=== PATIENT | female | born 1955 | race Caucasian/White ===

== ENCOUNTER → 2016-11-17 | Outpatient (REF) | payer OTHER ==
[~2016-11-17] MED LIST: /MOXI40TA; /WARF25TA OR; /WARF2TA; /WARF4TA; ACET500C; ACET65TA OR; ALTA5CAP PO; ASPI81TA83; ASPI81TA83 OR; BISA10SU2 RE; CHLORTHALIDONE PO; EX-L5TAB OR; GLUC1000 PO; GLUC500T PO; LIPI10TA OR; LIPI20TA; MILKSUS OR; MIRALAX; PERC5TAB8 OR; PERC7.5T8 OR; VICODINES TAB; VITA100027; VITAMIN B12 IM; VITAMIN D50000 UNT PO; ZEBE5TAB PO
[2016-11-17 11:52] LABS: ALBUMIN 4.2 GM/DL (3.2-5.2); ALBUMIN/GLOBULIN RATIO 1.17 (1.00-1.93); ALKALINE PHOSPHATASE 126 U/L (45-117); ALT/SGPT 46 U/L (12-78); ANION GAP 12 MEQ/L (8-16); AST/SGOT 48 U/L (15-37); BILIRUBIN,TOTAL 0.6 MG/DL (0.2-1.0); BLOOD UREA NITROGEN 14 MG/DL (7-18); CALCIUM LEVEL 9.6 MG/DL (8.8-10.2); CARBON DIOXIDE LEVEL 21 MEQ/L (21-32); CHLORIDE LEVEL 108 MEQ/L (98-107); CREATININE FOR GFR 0.81 MG/DL (0.55-1.02); GLOMERULAR FILTRATION RATE > 60.0 (>45); GLUCOSE, FASTING 173 MG/DL (80-110); POTASSIUM SERUM 4.1 MEQ/L (3.5-5.1); SODIUM LEVEL 141 MEQ/L (136-145); TOTAL PROTEIN 7.8 GM/DL (6.4-8.2)
== END ==
LOC: M SFHCPLAZ 08:34
PROVIDERS: ATTEND Nurse Practitioner Family
DX: E11.65 Type 2 diabetes mellitus with hyperglycemia (principal); E55.9 Vitamin D deficiency, unspecified

== ENCOUNTER → 2017-02-14 | Outpatient (REF) | payer OTHER ==
[2017-02-14 11:02] LABS: ALBUMIN 3.9 GM/DL (3.2-5.2); ALBUMIN/GLOBULIN RATIO 1.05 (1.00-1.93); ALKALINE PHOSPHATASE 178 U/L (45-117); ALT/SGPT 44 U/L (12-78); ANION GAP 10 MEQ/L (8-16); AST/SGOT 32 U/L (15-37); BILIRUBIN,TOTAL 0.3 MG/DL (0.2-1.0); BLOOD UREA NITROGEN 16 MG/DL (7-18); CALCIUM LEVEL 9.7 MG/DL (8.8-10.2); CARBON DIOXIDE LEVEL 24 MEQ/L (21-32); CHLORIDE LEVEL 103 MEQ/L (98-107); GLOMERULAR FILTRATION RATE > 60.0 (>45); GLUCOSE, FASTING 272 MG/DL (80-110); POTASSIUM SERUM 4.4 MEQ/L (3.5-5.1); SODIUM LEVEL 137 MEQ/L (136-145); TOTAL PROTEIN 7.6 GM/DL (6.4-8.2)
== END ==
LOC: M SFHCPLAZ 08:48
PROVIDERS: ATTEND Nurse Practitioner Family
DX: E11.65 Type 2 diabetes mellitus with hyperglycemia (principal)

== ENCOUNTER → 2017-05-18 | Outpatient (REF) | payer OTHER ==
[2017-05-18 13:17] LABS: ANION GAP 14 MEQ/L (8-16); BLOOD UREA NITROGEN 15 MG/DL (7-18); CALCIUM LEVEL 9.6 MG/DL (8.8-10.2); CARBON DIOXIDE LEVEL 21 MEQ/L (21-32); CHLORIDE LEVEL 97 MEQ/L (98-107); CHOLESTEROL LEVEL 250 MG/DL (<200); CREATININE FOR GFR 0.99 MG/DL (0.55-1.02); GLOMERULAR FILTRATION RATE > 60.0 (>45); GLUCOSE, FASTING 243 MG/DL (80-110); POTASSIUM SERUM 4.1 MEQ/L (3.5-5.1); SODIUM LEVEL 132 MEQ/L (136-145); TRIGLYCERIDES LEVEL 365 MG/DL (<150)
== END ==
LOC: M LABDRAWP 12:30
PROVIDERS: ATTEND Nurse Practitioner Family
DX: I11.9 Hypertensive heart disease without heart failure (principal); E78.2 Mixed hyperlipidemia

== ENCOUNTER → 2017-05-18 | Outpatient (REF) | payer OTHER ==
[2017-05-18 13:15] LABS: BILIRUBIN,TOTAL 0.5 MG/DL (0.2-1.0); CALCIUM LEVEL 9.8 MG/DL (8.8-10.2); CREATININE FOR GFR 1.06 MG/DL (0.55-1.02); GLOMERULAR FILTRATION RATE 55.7 (>45); POTASSIUM SERUM 4.2 MEQ/L (3.5-5.1)
[2017-05-18 13:16] LABS: ALBUMIN 4.1 GM/DL (3.2-5.2); ALBUMIN/GLOBULIN RATIO 1.14 (1.00-1.93); TOTAL PROTEIN 7.7 GM/DL (6.4-8.2)
== END ==
LOC: M SFHCPLAZ 08:10
PROVIDERS: ATTEND Nurse Practitioner Family
DX: E11.65 Type 2 diabetes mellitus with hyperglycemia (principal)

== ENCOUNTER → 2017-09-17 | Outpatient (CLI) | payer OTHER | LOC: M RAD 16:16 | PROVIDERS: ATTEND Nurse Practitioner Family | DX: Z12.31 Encounter for screening mammogram for malignant neoplasm of breast (principal) ==

== ENCOUNTER → 2017-10-25 | Outpatient (CLI) | payer OTHER | LOC: M WHC 13:59 | DX: Z12.31 Encounter for screening mammogram for malignant neoplasm of breast (principal) | CPT/HCPCS: 77067 ==

== ENCOUNTER → 2017-10-29 | Outpatient (REF) | payer OTHER ==
[2017-10-29 14:18] LABS: ALBUMIN 4.4 GM/DL (3.2-5.2); ALKALINE PHOSPHATASE 176 U/L (45-117); ALT/SGPT 45 U/L (12-78); ANION GAP 9 MEQ/L (8-16); AST/SGOT 40 U/L (7-37); BILIRUBIN,TOTAL 0.6 MG/DL (0.2-1.0); BLOOD UREA NITROGEN 11 MG/DL (7-18); CALCIUM LEVEL 9.8 MG/DL (8.8-10.2); CARBON DIOXIDE LEVEL 26 MEQ/L (21-32); CHLORIDE LEVEL 104 MEQ/L (98-107); CHOLESTEROL LEVEL 158 MG/DL (<200); CHOLESTEROL RISK RATIO 3.761 (<5); CREATININE FOR GFR 0.97 MG/DL (0.55-1.02); GLOMERULAR FILTRATION RATE > 60.0 (>45); GLUCOSE, FASTING 185 MG/DL (80-110); HDL CHOLESTEROL 42 MG/DL (>40); LDL CHOLESTEROL 65.8 MG/DL (<100); NON-HDL-C 116 MG/DL; SODIUM LEVEL 139 MEQ/L (136-145); TOTAL PROTEIN 8.4 GM/DL (6.4-8.2); TRIGLYCERIDES LEVEL 251 MG/DL (<150)
== END ==
LOC: M SFHCPLAZ 09:33
DX: E11.65 Type 2 diabetes mellitus with hyperglycemia (principal); E78.5 Hyperlipidemia, unspecified

== ENCOUNTER 2017-12-21 08:31 | Day surgery (SDC) | payer OTHER ==
[2017-12-21] MEDS ORDERED: PROPOFOL 200 MG/20 ML VIAL As Ordered ×2 (09:46)
[2017-12-21] MEDS ORDERED: LIDOCAINE 2% INJ 100 MG/5 ML SDV (FOR ANES.) As Ordered (09:47)
== END 2017-12-21 11:24 | disposition home or self-care (01) ==
LOC: M OPP 11:24
DX: Z12.11 Encounter for screening for malignant neoplasm of colon (principal); R19.4 Change in bowel habit; K63.89 Other specified diseases of intestine; K64.8 Other hemorrhoids; K57.30 Diverticulosis of large intestine without perforation or abscess without bleeding; R00.8 Other abnormalities of heart beat; I10 Essential (primary) hypertension; E78.5 Hyperlipidemia, unspecified; E11.9 Type 2 diabetes mellitus without complications; R12 Heartburn; K21.9 Gastro-esophageal reflux disease without esophagitis; D64.9 Anemia, unspecified; M19.90 Unspecified osteoarthritis, unspecified site; Z78.0 Asymptomatic menopausal state; Z86.711 Personal history of pulmonary embolism; Z96.643 Presence of artificial hip joint, bilateral; Z96.651 Presence of right artificial knee joint; Z79.899 Other long term (current) drug therapy; Z79.84 Long term (current) use of oral hypoglycemic drugs
CPT/HCPCS: 45380

== ENCOUNTER → 2017-12-27 | Outpatient (REF) | payer OTHER ==
[2017-12-27 12:05] LABS: VITAMIN B12 LEVEL > 2000 PG/ML (247-911)
[2017-12-27 12:08] LABS: ALBUMIN 4.3 GM/DL (3.2-5.2); ALBUMIN/GLOBULIN RATIO 1.19 (1.00-1.93); ALKALINE PHOSPHATASE 151 U/L (45-117); ALT/SGPT 40 U/L (12-78); ANION GAP 10 MEQ/L (8-16); AST/SGOT 34 U/L (7-37); BILIRUBIN,TOTAL 0.5 MG/DL (0.2-1.0); BLOOD UREA NITROGEN 13 MG/DL (7-18); CALCIUM LEVEL 9.3 MG/DL (8.8-10.2); CARBON DIOXIDE LEVEL 24 MEQ/L (21-32); CHLORIDE LEVEL 108 MEQ/L (98-107); CREATININE FOR GFR 0.84 MG/DL (0.55-1.30); GLOMERULAR FILTRATION RATE > 60.0 (>45); GLUCOSE, FASTING 109 MG/DL (70-100); POTASSIUM SERUM 4.1 MEQ/L (3.5-5.1); SODIUM LEVEL 142 MEQ/L (136-145); TOTAL PROTEIN 7.9 GM/DL (6.4-8.2)
[2017-12-27 12:38] LABS: ESTIMATED AVERAGE GLUCOSE 180 MG/DL (60-110); HEMOGLOBIN A1c 7.9 %
[2017-12-27 16:35] LABS: CREATININE, URINE 60.6 MG/DL; MAU/CREAT RATIO 19.8 MCG/MG (0.0-30.0)
== END ==
LOC: M SFHCPLAZ 08:44
DX: E11.65 Type 2 diabetes mellitus with hyperglycemia (principal); D51.8 Other vitamin B12 deficiency anemias
CPT/HCPCS: 82607

== ENCOUNTER 2018-03-09 22:09 | Inpatient (IN) | payer OTHER ==
[2018-03-09 23:35] LABS: BASO # 0.1 10^3/uL (0.0-0.2); BASO % 0.8 % (0.0-1.0); EOS # 0.3 10^3/uL (0.0-0.50); EOS % 3.2 % (0.0-3.0); HEMATOCRIT 38.8 % (36.0-47.0); HEMOGLOBIN 13.1 g/dl (12.0-15.5); IMMATURE GRANULOCYTE % 0.3 % (0-3.0); LYMPH # 3.8 10^3/uL (1.5-4.5); LYMPH % 41.7 % (24.0-44.0); MEAN CORPUSCULAR HEMOGLOBIN 28.8 pg (27.0-33.0); MEAN CORPUSCULAR HGB CONC 33.8 g/dl (32.0-36.5); MEAN CORPUSCULAR VOLUME 85.3 fl (80.0-96.0); MONO # 0.6 10^3/uL (0.0-0.8); MONO % 6.3 % (0.0-5.0); NEUTROPHILS # 4.4 10^3/uL (1.8-7.7); NEUTROPHILS % 47.7 % (36.0-66.0); PLATELET COUNT, AUTOMATED 158 10^3/uL (150-450); RED BLOOD COUNT 4.55 10^6/uL (4.00-5.40); RED CELL DISTRIBUTION WIDTH 14.1 % (11.5-14.5); WHITE BLOOD COUNT 9.1 10^3/uL (4.0-10.0)
[2018-03-09 23:45] LABS: INR 0.97
[2018-03-09 23:46] LABS: PARTIAL THROMBOPLASTIN TIME 30.9 SECONDS (26.8-37.9)
[2018-03-09 23:48] LABS: D-DIMER QUANT 1431.4 ng/ml (<500)
[2018-03-09 23:54] LABS: ALBUMIN/GLOBULIN RATIO 0.98 (1.00-1.93); ALKALINE PHOSPHATASE 141 U/L (45-117); ALT/SGPT 31 U/L (12-78); ANION GAP 14 MEQ/L (8-16); AST/SGOT 28 U/L (7-37); BILIRUBIN,DIRECT 0.2 MG/DL (0.0-0.2); BILIRUBIN,TOTAL 0.5 MG/DL (0.2-1.0); BLOOD UREA NITROGEN 15 MG/DL (7-18); CALCIUM LEVEL 9.2 MG/DL (8.8-10.2); CARBON DIOXIDE LEVEL 19 MEQ/L (21-32); CHLORIDE LEVEL 102 MEQ/L (98-107); CPK CREATINE PHOSPHOKINASE 92 U/L (26-192); CREATININE FOR GFR 0.92 MG/DL (0.55-1.30); FREE T4 0.88 NG/DL (0.76-1.46); GLOMERULAR FILTRATION RATE > 60.0 (>45); GLUCOSE, FASTING 72 MG/DL (70-100); LIPASE 481 U/L (73-393); POTASSIUM SERUM 3.4 MEQ/L (3.5-5.1); SODIUM LEVEL 135 MEQ/L (136-145); TOTAL PROTEIN 8.1 GM/DL (6.4-8.2); TROPONIN I < 0.02 NG/ML (< 0.10)
[2018-03-10] LABS: CK-MB VALUE MASS 1.9 NG/ML (<3.6); MB/CK RELATIVE INDEX 2.06 (< OR =4)
[2018-03-10 00:15] LABS: ETHYL ALCOHOL (ETHANOL) 0.255 % (0.000-0.010)
[2018-03-10] MEDS ORDERED: ISOVUE-370 76% 100ML VIAL (Q9967) As Ordered (00:17)
[2018-03-10] MEDS: ASPIRIN 81 MG CHEW TABLET PO (00:24)
[2018-03-10] MEDS: NS 1,000 ML IV (00:26)
[2018-03-10 03:19] LABS: MAGNESIUM LEVEL 1.8 MG/DL (1.8-2.4); NT-PRO BNP 70 PG/ML (<125)
[2018-03-10] MEDS: POTASSIUM CHLORIDE 10 MEQ SR TABLET PO (03:45)
[2018-03-10] MEDS ORDERED: OXAZEPAM 10 MG CAP PO (05:30)
[2018-03-10] MEDS ORDERED: ACETAMINOPHEN TAB 650MG DOSE (2X325MG) PO (05:30)
[2018-03-10] MEDS ORDERED: GLUCOSE 4 GM CHEW TABLET PO (05:30)
[2018-03-10] MEDS ORDERED: DEXTROSE 50% 50 ML SYRINGE IV (05:30)
[2018-03-10] MEDS ORDERED: GLUCAGON FOR INJ 1 MG VIAL (J1610) SC (05:30)
[2018-03-10] MEDS ORDERED: ONDANSETRON 4MG/2ML VIAL (J2405) IV (05:30)
[2018-03-10 05:55] LABS: CK-MB VALUE MASS 1.9 NG/ML (<3.6); CPK CREATINE PHOSPHOKINASE 92 U/L (26-192); MB/CK RELATIVE INDEX 2.06 (< OR =4); TROPONIN I < 0.02 NG/ML (< 0.10)
[2018-03-10] MEDS ORDERED: PILL CRUSHER/CUTTER 1 EACH XX (06:15)
[2018-03-10 06:18] LABS: BEDSIDE GLUCOSE 68 MG/DL (80-115)
[2018-03-10] MEDS: FOLIC ACID 1 MG TAB PO (06:22)
[2018-03-10] MEDS: FAMOTIDINE 20 MG TAB PO ×2 (06:22→20:12)
[2018-03-10] MEDS: MULTIVITAMINS/MINERALS THERAP 1 TAB PO (06:22)
[2018-03-10] MEDS: THIAMINE 100 MG TAB PO (06:22)
[2018-03-10] MEDS: OXAZEPAM 10 MG CAP PO ×2 (06:22→14:20)
[2018-03-10 07:26] LABS: BASO # 0.1 10^3/uL (0.0-0.2); BASO % 1.2 % (0.0-1.0); EOS # 0.2 10^3/uL (0.0-0.50); EOS % 3.7 % (0.0-3.0); HEMATOCRIT 38.6 % (36.0-47.0); HEMOGLOBIN 13.1 g/dl (12.0-15.5); IMMATURE GRANULOCYTE % 0.4 % (0-3.0); LYMPH # 2.1 10^3/uL (1.5-4.5); LYMPH % 42.5 % (24.0-44.0); MEAN CORPUSCULAR HGB CONC 33.9 g/dl (32.0-36.5); MEAN CORPUSCULAR VOLUME 85.4 fl (80.0-96.0); MONO # 0.3 10^3/uL (0.0-0.8); MONO % 6.1 % (0.0-5.0); NEUTROPHILS # 2.3 10^3/uL (1.8-7.7); NEUTROPHILS % 46.1 % (36.0-66.0); PLATELET COUNT, AUTOMATED 126 10^3/uL (150-450); RED BLOOD COUNT 4.52 10^6/uL (4.00-5.40); RED CELL DISTRIBUTION WIDTH 14.3 % (11.5-14.5); WHITE BLOOD COUNT 4.9 10^3/uL (4.0-10.0)
[2018-03-10] MEDS: HumaLOG INSULIN (NovoLOG) PER UNIT SC ×4 (07:30→20:12)
[2018-03-10 07:46] LABS: ANION GAP 10 MEQ/L (8-16); BLOOD UREA NITROGEN 11 MG/DL (7-18); CALCIUM LEVEL 9.1 MG/DL (8.8-10.2); CARBON DIOXIDE LEVEL 22 MEQ/L (21-32); CHLORIDE LEVEL 110 MEQ/L (98-107); CREATININE FOR GFR 0.89 MG/DL (0.55-1.30); GLOMERULAR FILTRATION RATE > 60.0 (>45); GLUCOSE, FASTING 99 MG/DL (70-100); MAGNESIUM LEVEL 1.9 MG/DL (1.8-2.4); POTASSIUM SERUM 4.2 MEQ/L (3.5-5.1); SODIUM LEVEL 142 MEQ/L (136-145)
[2018-03-10] MEDS: DOCUSATE SODIUM 100 MG CAP PO ×2 (09:00→20:10)
[2018-03-10] MEDS: ENOXAPARIN 40 MG/0.4 ML SYRINGE (J1650) SC (10:03)
[2018-03-10] MEDS: ASPIRIN 81 MG ENTERIC TAB PO (10:04)
[2018-03-10] MEDS: BISOPROLOL FUMARATE 5 MG TAB PO (10:04)
[2018-03-10 11:59] LABS: BEDSIDE GLUCOSE 114 MG/DL (80-115)
[2018-03-10 16:46] LABS: BEDSIDE GLUCOSE 113 MG/DL (80-115)
[2018-03-10 20:02] LABS: BEDSIDE GLUCOSE 201 MG/DL (80-115)
[2018-03-11 06:24] LABS: BASO % 0.9 % (0.0-1.0); EOS # 0.2 10^3/uL (0.0-0.50); EOS % 5.1 % (0.0-3.0); HEMATOCRIT 40.6 % (36.0-47.0); HEMOGLOBIN 13.7 g/dl (12.0-15.5); IMMATURE GRANULOCYTE % 0.2 % (0-3.0); LYMPH # 1.5 10^3/uL (1.5-4.5); LYMPH % 33.8 % (24.0-44.0); MEAN CORPUSCULAR HEMOGLOBIN 28.9 pg (27.0-33.0); MEAN CORPUSCULAR HGB CONC 33.7 g/dl (32.0-36.5); MEAN CORPUSCULAR VOLUME 85.7 fl (80.0-96.0); MONO # 0.5 10^3/uL (0.0-0.8); MONO % 9.9 % (0.0-5.0); NEUTROPHILS # 2.3 10^3/uL (1.8-7.7); NEUTROPHILS % 50.1 % (36.0-66.0); PLATELET COUNT, AUTOMATED 131 10^3/uL (150-450); RED BLOOD COUNT 4.74 10^6/uL (4.00-5.40); RED CELL DISTRIBUTION WIDTH 14.2 % (11.5-14.5); WHITE BLOOD COUNT 4.6 10^3/uL (4.0-10.0)
[2018-03-11 06:52] LABS: ANION GAP 7 MEQ/L (8-16); BLOOD UREA NITROGEN 14 MG/DL (7-18); CARBON DIOXIDE LEVEL 25 MEQ/L (21-32); CHLORIDE LEVEL 108 MEQ/L (98-107); GLOMERULAR FILTRATION RATE 59.4 (>45); GLUCOSE, FASTING 163 MG/DL (70-100); POTASSIUM SERUM 3.9 MEQ/L (3.5-5.1); SODIUM LEVEL 140 MEQ/L (136-145)
[2018-03-11] MEDS: MULTIVITAMINS/MINERALS THERAP 1 TAB PO (08:30)
[2018-03-11] MEDS: THIAMINE 100 MG TAB PO (08:30)
[2018-03-11] MEDS: ASPIRIN 81 MG ENTERIC TAB PO (08:30)
[2018-03-11] MEDS: FAMOTIDINE 20 MG TAB PO (08:32)
[2018-03-11] MEDS: BISOPROLOL FUMARATE 5 MG TAB PO (08:32)
[2018-03-11] MEDS: FOLIC ACID 1 MG TAB PO (08:32)
[2018-03-11] MEDS: HumaLOG INSULIN (NovoLOG) PER UNIT SC ×2 (08:33→12:24)
[2018-03-11] MEDS: ENOXAPARIN 40 MG/0.4 ML SYRINGE (J1650) SC (08:33)
[2018-03-11] MEDS: DOCUSATE SODIUM 100 MG CAP PO (08:33)
[2018-03-11 11:09] LABS: CORTISOL AM 17.7 UG/DL (4.3-22.4)
[2018-03-11 11:36] LABS: BEDSIDE GLUCOSE 211 MG/DL (80-115)
[2018-03-12 15:50] LABS: BEDSIDE GLUCOSE 80 MG/DL (80-115)
== END 2018-03-11 12:30 | disposition home or self-care (01) | DRG 254 ==
LOC: M ED 22:09 → M ED INP 03-10 04:26 → M MSPAV 03-10 05:44
PROVIDERS: Internal Medicine
DX: K31.89 Other diseases of stomach and duodenum (principal); E87.1 Hypo-osmolality and hyponatremia; I10 Essential (primary) hypertension; E53.8 Deficiency of other specified B group vitamins; E55.9 Vitamin D deficiency, unspecified; I65.29 Occlusion and stenosis of unspecified carotid artery; E11.9 Type 2 diabetes mellitus without complications; E87.6 Hypokalemia; F10.129 Alcohol abuse with intoxication, unspecified; Z79.899 Other long term (current) drug therapy; E78.5 Hyperlipidemia, unspecified; Z86.718 Personal history of other venous thrombosis and embolism; Z86.711 Personal history of pulmonary embolism; E03.9 Hypothyroidism, unspecified; K57.30 Diverticulosis of large intestine without perforation or abscess without bleeding; M06.9 Rheumatoid arthritis, unspecified; F41.9 Anxiety disorder, unspecified; Z79.82 Long term (current) use of aspirin; E04.9 Nontoxic goiter, unspecified

== ENCOUNTER → 2018-03-18 | Outpatient (REF) | payer OTHER | LOC: M SFHCPLAZ 16:32 | DX: E11.65 Type 2 diabetes mellitus with hyperglycemia (principal) ==

== ENCOUNTER → 2018-03-27 | Outpatient (REF) | payer OTHER ==
[2018-03-27 19:59] LABS: ANION GAP 13 MEQ/L (8-16); BLOOD UREA NITROGEN 17 MG/DL (7-18); CALCIUM LEVEL 9.7 MG/DL (8.8-10.2); CARBON DIOXIDE LEVEL 23 MEQ/L (21-32); CHLORIDE LEVEL 103 MEQ/L (98-107); CREATININE FOR GFR 1.07 MG/DL (0.55-1.30); GLUCOSE, FASTING 317 MG/DL (70-100); POTASSIUM SERUM 4.4 MEQ/L (3.5-5.1); SODIUM LEVEL 139 MEQ/L (136-145)
== END ==
LOC: M SFHCPLAZ 13:00
DX: E11.65 Type 2 diabetes mellitus with hyperglycemia (principal)

== ENCOUNTER 2018-04-04 11:31 | Emergency (ER) | payer OTHER ==
[2018-04-04] MEDS: IBUPROFEN 600 MG TAB PO (13:38)
== END 2018-04-04 13:43 | disposition home or self-care (01) ==
LOC: M ED 11:31
DX: S90.121A Contusion of right lesser toe(s) without damage to nail, initial encounter (principal); W22.09XA Striking against other stationary object, initial encounter; Y92.009 Unspecified place in unspecified non-institutional (private) residence as the place of occurrence of the external cause; E11.9 Type 2 diabetes mellitus without complications; I10 Essential (primary) hypertension; F41.9 Anxiety disorder, unspecified; Z86.711 Personal history of pulmonary embolism; Z98.890 Other specified postprocedural states; Z79.82 Long term (current) use of aspirin; Z79.84 Long term (current) use of oral hypoglycemic drugs; Z79.899 Other long term (current) drug therapy
CPT/HCPCS: 73630

== ENCOUNTER → 2018-04-05 | Outpatient (REF) | payer OTHER ==
[2018-04-05 16:32] LABS: TOTAL 25(OH) VITAMIN D 67.4 NG/ML (30.0-100.0)
[2018-04-05 16:36] LABS: ESTIMATED AVERAGE GLUCOSE 192 MG/DL (60-110); HEMOGLOBIN A1c 8.3 %
== END ==
LOC: M SFHCPLAZ 14:30
DX: E11.65 Type 2 diabetes mellitus with hyperglycemia (principal); E55.9 Vitamin D deficiency, unspecified
CPT/HCPCS: 83036

== ENCOUNTER 2018-05-16 01:06 | Emergency (ER) | payer OTHER ==
[2018-05-16 03:29] LABS: BASO % 0.6 % (0.0-1.0); EOS # 0.2 10^3/uL (0.0-0.50); EOS % 2.6 % (0.0-3.0); HEMATOCRIT 40.5 % (36.0-47.0); HEMOGLOBIN 13.5 g/dl (12.0-15.5); IMMATURE GRANULOCYTE % 0.5 % (0-3.0); LYMPH # 2.3 10^3/uL (1.5-4.5); LYMPH % 35.2 % (24.0-44.0); MEAN CORPUSCULAR HGB CONC 33.3 g/dl (32.0-36.5); MEAN CORPUSCULAR VOLUME 86.9 fl (80.0-96.0); MONO # 0.5 10^3/uL (0.0-0.8); MONO % 7.8 % (0.0-5.0); NEUTROPHILS # 3.5 10^3/uL (1.8-7.7); NEUTROPHILS % 53.3 % (36.0-66.0); PLATELET COUNT, AUTOMATED 129 10^3/uL (150-450); RED BLOOD COUNT 4.66 10^6/uL (4.00-5.40); RED CELL DISTRIBUTION WIDTH 14.4 % (11.5-14.5); WHITE BLOOD COUNT 6.5 10^3/uL (4.0-10.0)
[2018-05-16] MEDS: ONDANSETRON 4MG/2ML VIAL (J2405) IV (03:30)
[2018-05-16] MEDS: KETOROLAC 30 MG/ML VIAL (J1885) IV (03:30)
[2018-05-16 03:53] LABS: LACTIC ACID SEPSIS PROTOCOL 3.2 MMOL/L (0.4-2.0)
[2018-05-16 04:14] LABS: ALBUMIN 4.2 GM/DL (3.2-5.2); ALBUMIN/GLOBULIN RATIO 1.02 (1.00-1.93); ALKALINE PHOSPHATASE 159 U/L (45-117); ALT/SGPT 34 U/L (12-78); ANION GAP 16 MEQ/L (8-16); AST/SGOT 30 U/L (7-37); BILIRUBIN,DIRECT 0.1 MG/DL (0.0-0.2); BILIRUBIN,TOTAL 0.5 MG/DL (0.2-1.0); BLOOD UREA NITROGEN 13 MG/DL (7-18); CALCIUM LEVEL 9.1 MG/DL (8.8-10.2); CARBON DIOXIDE LEVEL 18 MEQ/L (21-32); CHLORIDE LEVEL 107 MEQ/L (98-107); CPK CREATINE PHOSPHOKINASE 95 U/L (26-192); CREATININE FOR GFR 0.81 MG/DL (0.55-1.30); GLOMERULAR FILTRATION RATE > 60.0 (>45); GLUCOSE, FASTING 90 MG/DL (70-100); LIPASE 419 U/L (73-393); POTASSIUM SERUM 3.8 MEQ/L (3.5-5.1); SODIUM LEVEL 141 MEQ/L (136-145); TOTAL PROTEIN 8.3 GM/DL (6.4-8.2)
[2018-05-16] MEDS: NS 1,000 ML IV (04:14)
[2018-05-16 04:27] LABS: ETHYL ALCOHOL (ETHANOL) 0.092 % (0.000-0.010)
[2018-05-16 04:55] LABS: KETONE, URINE AUTO RFX NEGATIVE (NEGATIVE); LEUKOCYTE ESTERASE UR AUTO RFX NEGATIVE (NEGATIVE); NITRITE, URINE AUTO RFX NEGATIVE (NEGATIVE); RBC, URINE AUTO RFX 0 /HPF (0-3); SQUAM EPITHELIAL CELL UR AURFX 0 /HPF (0-6); WBC, URINE AUTO RFX 0 /HPF (0-3)
== END 2018-05-16 05:45 | disposition home or self-care (01) ==
LOC: M ED 01:06
DX: R10.9 Unspecified abdominal pain (principal); E11.9 Type 2 diabetes mellitus without complications; I10 Essential (primary) hypertension; R16.0 Hepatomegaly, not elsewhere classified; N13.30 Unspecified hydronephrosis; K56.7 Ileus, unspecified; R19.7 Diarrhea, unspecified; K52.9 Noninfective gastroenteritis and colitis, unspecified; Z79.82 Long term (current) use of aspirin; Z79.84 Long term (current) use of oral hypoglycemic drugs; Z79.899 Other long term (current) drug therapy
CPT/HCPCS: J2405

== ENCOUNTER 2018-05-18 22:20 | Emergency (ER) | payer OTHER | END 2018-05-18 23:37 | disposition home or self-care (01) | LOC: M ED 22:20 | DX: F10.129 Alcohol abuse with intoxication, unspecified (principal); E11.9 Type 2 diabetes mellitus without complications; I10 Essential (primary) hypertension; E78.5 Hyperlipidemia, unspecified; Z79.899 Other long term (current) drug therapy; Z79.82 Long term (current) use of aspirin; Z79.84 Long term (current) use of oral hypoglycemic drugs | CPT/HCPCS: 99284 ==

== ENCOUNTER 2018-05-25 23:07 | Emergency (ER) | payer OTHER ==
[2018-05-26] MEDS ORDERED: GASTROGRAFIN SOLUTION 30ML (Q9963) As Ordered (00:22)
[2018-05-26 00:25] LABS: APPEARANCE, URINE CLEAR (CLEAR); BACTERIA, URINE AUTO 1+ (NEGATIVE); BILIRUBIN, URINE AUTO NEGATIVE (NEGATIVE); BLOOD, URINE BLOOD 1+ (NEGATIVE); COLOR, URINE STRAW (YELLOW); GLUCOSE, URINE (UA) AUTO 3+ mg/dL (NEGATIVE); KETONE, URINE AUTO TRACE mg/dL (NEGATIVE); LEUKOCYTE ESTERASE, URINE AUTO TRACE (NEGATIVE); NITRITE, URINE AUTO NEGATIVE (NEGATIVE); PROTEIN, URINE AUTO NEGATIVE (NEGATIVE); RBC, URINE AUTO 3 /HPF (0-3); SPECIFIC GRAVITY URINE AUTO 1.001 (1.002-1.035); SQUAMOUS EPITHELIAL CELL UR AU 1 /HPF (0-6); UROBILINOGEN, URINE AUTO 0.2 mg/dL (0.0-2.0); WBC, URINE AUTO 2 /HPF (0-3)
[2018-05-26 00:34] LABS: BASO # 0.1 10^3/uL (0.0-0.2); BASO % 0.7 % (0.0-1.0); EOS # 0.2 10^3/uL (0.0-0.50); EOS % 2.5 % (0.0-3.0); HEMATOCRIT 41.6 % (36.0-47.0); HEMOGLOBIN 13.7 g/dl (12.0-15.5); IMMATURE GRANULOCYTE % 0.4 % (0-3.0); LYMPH # 2.6 10^3/uL (1.5-4.5); MEAN CORPUSCULAR HEMOGLOBIN 28.8 pg (27.0-33.0); MEAN CORPUSCULAR HGB CONC 32.9 g/dl (32.0-36.5); MEAN CORPUSCULAR VOLUME 87.4 fl (80.0-96.0); MONO # 0.5 10^3/uL (0.0-0.8); MONO % 6.4 % (0.0-5.0); PLATELET COUNT, AUTOMATED 137 10^3/uL (150-450); RED BLOOD COUNT 4.76 10^6/uL (4.00-5.40); RED CELL DISTRIBUTION WIDTH 14.4 % (11.5-14.5); WHITE BLOOD COUNT 7.3 10^3/uL (4.0-10.0)
[2018-05-26] MEDS: NS 500 ML IV ×2 (00:36→02:11)
[2018-05-26] MEDS: MORPHINE 10 MG/ML 1ML VIAL (J2270) IV (00:36)
[2018-05-26] MEDS: GASTROGRAFIN SOLUTION 30ML PO ×2 (00:40→01:20)
[2018-05-26 00:44] LABS: ALBUMIN 4.1 GM/DL (3.2-5.2); ALBUMIN/GLOBULIN RATIO 1.05 (1.00-1.93); ALKALINE PHOSPHATASE 170 U/L (45-117); ALT/SGPT 39 U/L (12-78); ANION GAP 18 MEQ/L (8-16); AST/SGOT 38 U/L (7-37); BILIRUBIN,DIRECT 0.1 MG/DL (0.0-0.2); BILIRUBIN,TOTAL 0.4 MG/DL (0.2-1.0); BLOOD UREA NITROGEN 14 MG/DL (7-18); CARBON DIOXIDE LEVEL 16 MEQ/L (21-32); CHLORIDE LEVEL 104 MEQ/L (98-107); CK-MB VALUE MASS 2.5 NG/ML (<3.6); CPK CREATINE PHOSPHOKINASE 105 U/L (26-192); CREATININE FOR GFR 0.89 MG/DL (0.55-1.30); GLOMERULAR FILTRATION RATE > 60.0 (>45); GLUCOSE, FASTING 110 MG/DL (70-100); LIPASE 267 U/L (73-393); MB/CK RELATIVE INDEX 2.38 (< OR =4); POTASSIUM SERUM 3.7 MEQ/L (3.5-5.1); SODIUM LEVEL 138 MEQ/L (136-145); TROPONIN I < 0.02 NG/ML (< 0.10)
[2018-05-26] MEDS ORDERED: ISOVUE-370 76% 100ML VIAL (Q9967) As Ordered (01:56)
== END 2018-05-26 04:55 | disposition home or self-care (01) ==
LOC: M ED 23:07
DX: R10.9 Unspecified abdominal pain (principal); E78.5 Hyperlipidemia, unspecified; E11.9 Type 2 diabetes mellitus without complications; J98.11 Atelectasis; K76.0 Fatty (change of) liver, not elsewhere classified
CPT/HCPCS: Q9967

== ENCOUNTER 2018-06-08 22:49 | Emergency (ER) | payer OTHER ==
[2018-06-08 23:07] LABS: BEDSIDE GLUCOSE 64 MG/DL (80-115)
[2018-06-08 23:51] LABS: BEDSIDE GLUCOSE 94 MG/DL (80-115)
== END 2018-06-09 00:09 | disposition home or self-care (01) ==
LOC: M ED 06-09 00:09
DX: E11.649 Type 2 diabetes mellitus with hypoglycemia without coma (principal); I10 Essential (primary) hypertension; K21.9 Gastro-esophageal reflux disease without esophagitis; Z79.899 Other long term (current) drug therapy; Z79.1 Long term (current) use of non-steroidal anti-inflammatories (NSAID); Z79.84 Long term (current) use of oral hypoglycemic drugs; Z79.82 Long term (current) use of aspirin
CPT/HCPCS: 99284

== ENCOUNTER 2018-06-11 01:39 | Emergency (ER) | payer OTHER ==
[2018-06-11] MEDS: MULTIVITAMIN -ADULT INJECTION 10 ML, THIAMINE INJection 100 MG, FOLIC ACID 1 MG in NS 1... IV (02:34)
[2018-06-11 02:35] LABS: BASO % 0.4 % (0.0-1.0); EOS # 0.2 10^3/uL (0.0-0.50); EOS % 2.7 % (0.0-3.0); HEMATOCRIT 42.1 % (36.0-47.0); IMMATURE GRANULOCYTE % 0.2 % (0-3.0); LYMPH # 1.8 10^3/uL (1.5-4.5); LYMPH % 20.6 % (24.0-44.0); MEAN CORPUSCULAR HEMOGLOBIN 28.6 pg (27.0-33.0); MEAN CORPUSCULAR HGB CONC 33.3 g/dl (32.0-36.5); MEAN CORPUSCULAR VOLUME 86.1 fl (80.0-96.0); MONO # 0.5 10^3/uL (0.0-0.8); MONO % 5.6 % (0.0-5.0); NEUTROPHILS # 6.3 10^3/uL (1.8-7.7); NEUTROPHILS % 70.5 % (36.0-66.0); PLATELET COUNT, AUTOMATED 111 10^3/uL (150-450); RED BLOOD COUNT 4.89 10^6/uL (4.00-5.40); RED CELL DISTRIBUTION WIDTH 14.6 % (11.5-14.5); WHITE BLOOD COUNT 8.9 10^3/uL (4.0-10.0)
[2018-06-11 02:50] LABS: ANION GAP 13 MEQ/L (8-16); BLOOD UREA NITROGEN 16 MG/DL (7-18); CALCIUM LEVEL 9.5 MG/DL (8.8-10.2); CARBON DIOXIDE LEVEL 21 MEQ/L (21-32); CHLORIDE LEVEL 107 MEQ/L (98-107); CPK CREATINE PHOSPHOKINASE 116 U/L (26-192); CREATININE FOR GFR 0.89 MG/DL (0.55-1.30); GLOMERULAR FILTRATION RATE > 60.0 (>45); GLUCOSE, FASTING 85 MG/DL (70-100); POTASSIUM SERUM 3.6 MEQ/L (3.5-5.1); SODIUM LEVEL 141 MEQ/L (136-145); TROPONIN I 0.04 NG/ML (< 0.10)
[2018-06-11 02:51] LABS: CK-MB VALUE MASS 1.5 NG/ML (<3.6); MB/CK RELATIVE INDEX 1.29 (< OR =4)
[2018-06-11 02:59] LABS: ETHYL ALCOHOL (ETHANOL) < 0.003 % (0.000-0.010)
== END 2018-06-11 04:02 | disposition home or self-care (01) ==
LOC: M ED 01:39
DX: E86.0 Dehydration (principal); E11.9 Type 2 diabetes mellitus without complications; I10 Essential (primary) hypertension; Z79.899 Other long term (current) drug therapy; Z79.82 Long term (current) use of aspirin; Z79.84 Long term (current) use of oral hypoglycemic drugs; F10.10 Alcohol abuse, uncomplicated
CPT/HCPCS: J3411

== ENCOUNTER → 2018-06-24 | Outpatient (REF) | payer OTHER ==
[2018-06-24 22:14] LABS: ANION GAP 12 MEQ/L (8-16); BLOOD UREA NITROGEN 11 MG/DL (7-18); CALCIUM LEVEL 9.8 MG/DL (8.8-10.2); CARBON DIOXIDE LEVEL 23 MEQ/L (21-32); CHLORIDE LEVEL 108 MEQ/L (98-107); CREATININE FOR GFR 0.87 MG/DL (0.55-1.30); GLOMERULAR FILTRATION RATE > 60.0 (>45); GLUCOSE, FASTING 134 MG/DL (70-100); POTASSIUM SERUM 4.1 MEQ/L (3.5-5.1); SODIUM LEVEL 143 MEQ/L (136-145)
== END ==
LOC: M SFHCPLAZ 12:57
DX: E11.65 Type 2 diabetes mellitus with hyperglycemia (principal)

== ENCOUNTER → 2018-07-22 | Outpatient (REF) | payer OTHER ==
[2018-07-22 18:10] LABS: ESTIMATED AVERAGE GLUCOSE 154 MG/DL (60-110)
[2018-07-22 18:22] LABS: ALBUMIN 4.2 GM/DL (3.2-5.2); ALBUMIN/GLOBULIN RATIO 1.02 (1.00-1.93); ALKALINE PHOSPHATASE 176 U/L (45-117); ALT/SGPT 38 U/L (12-78); ANION GAP 11 MEQ/L (8-16); AST/SGOT 32 U/L (7-37); BILIRUBIN,TOTAL 0.4 MG/DL (0.2-1.0); BLOOD UREA NITROGEN 15 MG/DL (7-18); CALCIUM LEVEL 9.4 MG/DL (8.8-10.2); CARBON DIOXIDE LEVEL 23 MEQ/L (21-32); CHLORIDE LEVEL 107 MEQ/L (98-107); CREATININE FOR GFR 0.96 MG/DL (0.55-1.30); GLOMERULAR FILTRATION RATE > 60.0 (>45); GLUCOSE, FASTING 144 MG/DL (70-100); SODIUM LEVEL 141 MEQ/L (136-145); TOTAL PROTEIN 8.3 GM/DL (6.4-8.2)
[2018-07-22 18:29] LABS: TOTAL 25(OH) VITAMIN D 80.6 NG/ML (30.0-100.0)
== END ==
LOC: M SFHCPLAZ 15:07
DX: E11.65 Type 2 diabetes mellitus with hyperglycemia (principal)

== ENCOUNTER → 2018-07-30 | Outpatient (CLI) | payer OTHER | LOC: M RAD 13:25 | DX: I65.23 Occlusion and stenosis of bilateral carotid arteries (principal) | CPT/HCPCS: 93880 ==

== ENCOUNTER → 2018-08-20 | Outpatient (CLI) | payer OTHER | LOC: M WHC 08:52 | DX: M81.0 Age-related osteoporosis without current pathological fracture (principal) | CPT/HCPCS: 77080 ==

== ENCOUNTER 2018-10-07 05:29 | Emergency (ER) | payer OTHER ==
[~2018-10-07] VITALS: Ht 160 cm; Wt 70.9 kg
[~2018-10-07 05:29] MED LIST changes: -ACET65TA OR; +ACET65TA PO; +ALOG25TA PO; +ASPI1TAB PO; +ASPI81TA85 PO; +BISO5TAB5 PO; +CHLO125TA PO; +FOLI1TAB5 PO; +GLIM2TA PO; +IBUP-1022 PO; +JARD1TAB PO; +LISI-538 PO; +NAPR-49 PO; +RANI150T PO; +ROSU20TA4 PO; +THIA100TA PO; +VITAMIN B12; +VITMTA PO; +ZOFR4TAB16 PO
[2018-10-07 06:19] LABS: BASO % 0.3 % (0.0-1.0); EOS # 0.2 10^3/uL (0.0-0.50); EOS % 2.3 % (0.0-3.0); HEMOGLOBIN 14.2 g/dl (12.0-15.5); LYMPH # 0.5 10^3/uL (1.5-4.5); LYMPH % 7.7 % (24.0-44.0); MEAN CORPUSCULAR HEMOGLOBIN 28.6 pg (27.0-33.0); MEAN CORPUSCULAR VOLUME 86.5 fl (80.0-96.0); MONO # 0.3 10^3/uL (0.0-0.8); MONO % 4.8 % (0.0-5.0); NEUTROPHILS # 5.6 10^3/uL (1.8-7.7); NEUTROPHILS % 84.4 % (36.0-66.0); PLATELET COUNT, AUTOMATED 109 10^3/uL (150-450); RED BLOOD COUNT 4.97 10^6/uL (4.00-5.40); WHITE BLOOD COUNT 6.6 10^3/uL (4.0-10.0)
[2018-10-07 06:25] LABS: ALBUMIN 4.1 GM/DL (3.2-5.2); ALT/SGPT 45 U/L (12-78); BILIRUBIN,DIRECT 0.3 MG/DL (0.0-0.2); BILIRUBIN,TOTAL 0.9 MG/DL (0.2-1.0); BLOOD UREA NITROGEN 15 MG/DL (7-18); CALCIUM LEVEL 9.3 MG/DL (8.8-10.2); CARBON DIOXIDE LEVEL 22 MEQ/L (21-32); CHLORIDE LEVEL 105 MEQ/L (98-107); CPK CREATINE PHOSPHOKINASE 77 U/L (26-192); CREATININE FOR GFR 0.93 MG/DL (0.55-1.30); GLOMERULAR FILTRATION RATE > 60.0 (>45); GLUCOSE, FASTING 225 MG/DL (70-100); LIPASE 158 U/L (73-393); MB/CK RELATIVE INDEX 1.69 (< OR =4); SODIUM LEVEL 137 MEQ/L (136-145); TOTAL PROTEIN 8.2 GM/DL (6.4-8.2); TROPONIN I < 0.02 NG/ML (< 0.10)
[2018-10-07] MEDS ORDERED: METOCLOPRAMIDE INJ 10MG/2ML VIAL (J2765) IV ONE (07:15)
[2018-10-07] MEDS ORDERED: NS 1,000 ML IV ONE (07:15)
--- NOTE | 2018-10-07 07:48 | REP ---
Clinical: Acute chest and abdominal pain . Comparison: 03/09/2018 . Technique: PA and lateral. Findings: The mediastinum and cardiac silhouette are normal. The lung sharp are clear and without acute consolidation, effusion, or pneumothorax. The skeletal structures demonstrate degenerative changes primarily involving the bilateral shoulders. Surgical clips in the left thoracic inlet may be related to prior thyroid surgery. Impression: 1. No acute cardiopulmonary process. Electronically Signed by Amado Hernandez MD 10/07/2018 07:40 A
[2018-10-07 08:00] VITALS: BP 163/77
[2018-10-07] MEDS ORDERED: ZOFR4TAB14 PO (08:45)
--- NOTE | 2018-10-08 05:43 | ECGEPIP ---
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
== END 2018-10-07 08:54 | disposition home or self-care (01) ==
LOC: M ED 05:29
DX: R11.2 Nausea with vomiting, unspecified (principal); R19.7 Diarrhea, unspecified; I10 Essential (primary) hypertension; E11.9 Type 2 diabetes mellitus without complications
CPT/HCPCS: 71046; 80048; 80076; 81001; 82550; 82553; 83690; 85025; 87507; 93005; 93041; 96374; 99285; J2765

== ENCOUNTER 2018-10-10 10:45 | Emergency (ER) | payer OTHER ==
[~2018-10-10] VITALS: Ht 160 cm; Wt 70.9 kg
[~2018-10-10 10:45] MED LIST changes: +ZOFR4TAB14 PO
[2018-10-10] MEDS ORDERED: STEG5TAB (10:58)
[2018-10-10] MEDS ORDERED: CHLO125TA (10:58)
[2018-10-10 11:42] LABS: BASO # 0.1 10^3/uL (0.0-0.2); BASO % 0.7 % (0.0-1.0); EOS # 0.3 10^3/uL (0.0-0.50); EOS % 4.7 % (0.0-3.0); HEMATOCRIT 49.2 % (36.0-47.0); HEMOGLOBIN 15.8 g/dl (12.0-15.5); LYMPH # 1.5 10^3/uL (1.5-4.5); LYMPH % 20.1 % (24.0-44.0); MEAN CORPUSCULAR HEMOGLOBIN 28.4 pg (27.0-33.0); MEAN CORPUSCULAR HGB CONC 32.1 g/dl (32.0-36.5); MEAN CORPUSCULAR VOLUME 88.3 fl (80.0-96.0); MONO # 0.5 10^3/uL (0.0-0.8); MONO % 6.6 % (0.0-5.0); NEUTROPHILS # 4.9 10^3/uL (1.8-7.7); NEUTROPHILS % 67.3 % (36.0-66.0); PLATELET COUNT, AUTOMATED 149 10^3/uL (150-450); RED BLOOD COUNT 5.57 10^6/uL (4.00-5.40); WHITE BLOOD COUNT 7.3 10^3/uL (4.0-10.0)
[2018-10-10] MEDS ORDERED: DICYCLOMINE 10 MG CAP PO ONE (12:00)
[2018-10-10] MEDS ORDERED: NS 500 ML IV ONE (12:00)
[2018-10-10 12:22] LABS: ALBUMIN 4.5 GM/DL (3.2-5.2); ALT/SGPT 149 U/L (12-78); BILIRUBIN,DIRECT 0.2 MG/DL (0.0-0.2); BILIRUBIN,TOTAL 0.7 MG/DL (0.2-1.0); BLOOD UREA NITROGEN 22 MG/DL (7-18); CALCIUM LEVEL 9.4 MG/DL (8.8-10.2); CARBON DIOXIDE LEVEL 16 MEQ/L (21-32); CHLORIDE LEVEL 108 MEQ/L (98-107); CREATININE FOR GFR 1.07 MG/DL (0.55-1.30); GLOMERULAR FILTRATION RATE 54.8 (>45); GLUCOSE, FASTING 174 MG/DL (70-100); LIPASE 232 U/L (73-393); SODIUM LEVEL 136 MEQ/L (136-145); TOTAL PROTEIN 8.7 GM/DL (6.4-8.2)
[2018-10-10] MEDS ORDERED: DICY20TA PO (12:59)
[2018-10-10 13:07] VITALS: BP 152/68
[2018-10-11 10:18] LABS: HEPATITIS B SURFACE ANTIGEN NEGATIVE (NEGATIVE)
[2018-10-11 10:45] LABS: HEPATITIS B CORE ANTIBODY IGM NEGATIVE (NEGATIVE); HEPATITIS C VIRUS ABY INDEX 0.1 INDEX (<0.8)
[2018-10-11 10:48] LABS: HEPATITIS A ANTIBODY IGM NEGATIVE (NEGATIVE)
== END 2018-10-10 13:17 | disposition home or self-care (01) ==
LOC: M ED 10:45
DX: A08.11 Acute gastroenteropathy due to Norwalk agent (principal); R79.89 Other specified abnormal findings of blood chemistry; I10 Essential (primary) hypertension; E78.5 Hyperlipidemia, unspecified; F41.9 Anxiety disorder, unspecified; Z79.899 Other long term (current) drug therapy; Z79.84 Long term (current) use of oral hypoglycemic drugs; Z79.82 Long term (current) use of aspirin

== ENCOUNTER 2018-10-19 22:46 | Emergency (ER) | payer OTHER ==
[~2018-10-19] VITALS: Ht 160 cm; Wt 70.9 kg
[~2018-10-19 22:46] MED LIST changes: +CHLO125TA; +DICY20TA PO; +FOLI1TAB11 PO; -FOLI1TAB5 PO; -NAPR-49 PO; +NAPR-50 PO; +STEG5TAB
[2018-10-19 22:55] VITALS: BP 139/72
== END 2018-10-20 04:47 | disposition left against medical advice (07) ==
LOC: M ED 22:46 → EDBD 22:46 → EDSEX 22:46 → M ED 10-20 04:47
DX: F10.10 Alcohol abuse, uncomplicated (principal); R19.7 Diarrhea, unspecified; Z53.21 Procedure and treatment not carried out due to patient leaving prior to being seen by health care provider

== ENCOUNTER → 2018-11-05 | Outpatient (REF) | payer OTHER ==
[2018-11-05 18:43] LABS: HEMOGLOBIN A1c 6.7 %
[2018-11-05 18:48] LABS: ALT/SGPT 33 U/L (12-78); BLOOD UREA NITROGEN 18 MG/DL (7-18); CALCIUM LEVEL 9.7 MG/DL (8.8-10.2); CARBON DIOXIDE LEVEL 23 MEQ/L (21-32); CHLORIDE LEVEL 107 MEQ/L (98-107); CREATININE FOR GFR 0.88 MG/DL (0.55-1.30); GLOMERULAR FILTRATION RATE > 60.0 (>45); GLUCOSE, FASTING 89 MG/DL (70-100); POTASSIUM SERUM 4.4 MEQ/L (3.5-5.1); SODIUM LEVEL 141 MEQ/L (136-145)
[2018-11-05 18:49] LABS: ALBUMIN 4.3 GM/DL (3.2-5.2); BILIRUBIN,TOTAL 0.6 MG/DL (0.2-1.0); CHOLESTEROL LEVEL 149 MG/DL (<200); CHOLESTEROL RISK RATIO 3.547 (<5); HDL CHOLESTEROL 42 MG/DL (>40); LDL CHOLESTEROL 60 MG/DL (<100); NON-HDL-C 107 MG/DL; TOTAL PROTEIN 8.5 GM/DL (6.4-8.2); TRIGLYCERIDES LEVEL 236 MG/DL (<150)
[2018-11-05 18:56] LABS: TOTAL 25(OH) VITAMIN D 92.2 NG/ML (30.0-100.0)
[2018-11-08 08:36] LABS: VITAMIN B12 LEVEL > 2000 PG/ML (232-1245)
== END ==
LOC: M SFHCPLAZ 15:10
PROVIDERS: ATTEND Nurse Practitioner Family
DX: E11.65 Type 2 diabetes mellitus with hyperglycemia (principal); E78.5 Hyperlipidemia, unspecified; D51.8 Other vitamin B12 deficiency anemias; E55.9 Vitamin D deficiency, unspecified

== ENCOUNTER → 2018-12-03 | Outpatient (CLI) | payer OTHER ==
[~2018-12-03] MED LIST changes: +ASPI81TAEC PO; +CALCTAB6 PO; +CYAN1000VL IM; +GLIM2TAB PO; +METF10004 PO; +NAPR-885 PO; +STEG5TAB PO; +TYLE500T78 PO; +VITA50005 PO
--- NOTE | 2018-12-03 12:22 | REPMRS ---
Patient History The patient states she has not had a clinical breast exam in over a year. Patient is postmenopausal. No known family history of cancer. No Hormone Replacement Therapy Digital Woman Screen Mammo: December 03, 2018 - Exam #: [id number] Bilateral CC and MLO view(s) were taken. Technologist: Mary Martinez, Technologist Prior study comparison: October 25, 2017, digital woman screen mammo performed at [facility]. August 29, 2016, digital woman screen mammo performed at [facility] to [facility]. FINDINGS: There are scattered fibroglandular densities. There has been no change in the appearance of the mammogram from the prior studies. There is a mild amount of residual fibroglandular tissue which is fairly symmetric. There is no interval development of dominant mass, architectural distortion, or clustered microcalcification suggestive of malignancy. There are bilateral benign arterial calcifications noted. There are scattered, small, benign calcifications of doubtful clinical significance. 3-D tomosynthesis shows no additional findings. The patient's Tyrer-Cuzick lifetime risk assessment score is 5.4 %. No significant changes when compared with prior studies. Assessment: BI-RADS/ACR category 2 mammogram. Benign Findings. Recommendation Routine screening mammogram in 1 year (for women over age 40). This mammogram was interpreted with the aid of an FDA-approved computer-aided dectection system. A. Negative x-ray reports should not delay biopsy if a dominant or clinically suspicious mass is present. B. Four to eight percent of cancers are not identified by mammography. C. Adenosis and dense breast may obscure an underlying neoplasm. Electronically Signed By: Dc Crowder MD 12/03/18 [id number]
== END ==
LOC: M WHC 09:44
PROVIDERS: ATTEND Nurse Practitioner Family
DX: Z12.31 Encounter for screening mammogram for malignant neoplasm of breast (principal)

== ENCOUNTER 2018-12-10 22:16 | Observation (INO) | payer OTHER ==
[~2018-12-10] VITALS: Ht 160 cm; Wt 69.4 kg
[~2018-12-10 22:16] MED LIST changes: -ASPI81TAEC PO; -CALCTAB6 PO; -CYAN1000VL IM; -GLIM2TAB PO; -METF10004 PO; -NAPR-885 PO; -STEG5TAB PO; -TYLE500T78 PO; -VITA50005 PO
[2018-12-10] MEDS ORDERED: ONDANSETRON 4 MG ORAL DISINTEGRATING TAB (Q0162 PER 1MG) PO ONE (23:30)
[2018-12-11] MEDS ORDERED: KETOROLAC 30 MG/ML VIAL (J1885) IV ONE (00:15)
[2018-12-11] MEDS ORDERED: ONDANSETRON 4MG/2ML VIAL (J2405) IV ONE (00:15)
[2018-12-11] MEDS ORDERED: NS 1,000 ML IV ONE (00:15)
[2018-12-11 00:40] LABS: BASO # 0.1 10^3/uL (0.0-0.2); BASO % 0.9 % (0.0-1.0); EOS # 0.2 10^3/uL (0.0-0.50); HEMATOCRIT 44.8 % (36.0-47.0); HEMOGLOBIN 14.6 g/dl (12.0-15.5); LYMPH # 1.9 10^3/uL (1.5-4.5); LYMPH % 35.9 % (24.0-44.0); MEAN CORPUSCULAR HEMOGLOBIN 27.9 pg (27.0-33.0); MEAN CORPUSCULAR HGB CONC 32.6 g/dl (32.0-36.5); MEAN CORPUSCULAR VOLUME 85.7 fl (80.0-96.0); MONO # 0.4 10^3/uL (0.0-0.8); MONO % 6.9 % (0.0-5.0); NEUTROPHILS # 2.9 10^3/uL (1.8-7.7); NEUTROPHILS % 53.1 % (36.0-66.0); PLATELET COUNT, AUTOMATED 126 10^3/uL (150-450); RED BLOOD COUNT 5.23 10^6/uL (4.00-5.40); WHITE BLOOD COUNT 5.4 10^3/uL (4.0-10.0)
--- NOTE | 2018-12-11 00:53 | REPVR ---
EXAM: CT Head Without Contrast EXAM DATE/TIME: 12/11/2018 12:06 AM CLINICAL HISTORY: 63 years old, female; Injury or trauma; Fall; Additional info: New onset headache TECHNIQUE: Axial computed tomography images of the head/brain without contrast. All CT scans at this facility use at least one of these dose optimization techniques: automated exposure control; mA and/or kV adjustment per patient size (includes targeted exams where dose is matched to clinical indication); or iterative reconstruction. COMPARISON: CT Head without contrast 01/09/2013 8:42 AM FINDINGS: Brain: Normal. No hemorrhage. No significant white matter disease. No edema. Ventricles: Normal. No ventriculomegaly. Bones/joints: Unremarkable. No acute fracture. Sinuses: Moderate mucosal thickening of ethmoidal air cells, right greater than left. Mild mucosal thickening of bilateral sphenoid sinuses. Mastoid air cells: Visualized mastoid air cells are unremarkable. No mastoid effusion. Soft tissues: Unremarkable. IMPRESSION: No intracranial abnormality. Sinus disease. Electronically signed by: America Glaser On 12/11/2018 00:53:25 AM
[2018-12-11 00:55] LABS: PARTIAL THROMBOPLASTIN TIME 30.2 SECONDS (25.4-37.6)
[2018-12-11 01:09] LABS: AMPHETAMINES LEVEL URINE NEGATIVE (NEGATIVE); BARBITURATES URINE NEGATIVE (NEGATIVE); BENZODIAZEPINES URINE NEGATIVE (NEGATIVE); CANNABINOIDS URINE NEGATIVE (NEGATIVE); COCAINE METABOLITE URINE NEGATIVE (NEGATIVE); METHADONE URINE NEGATIVE (NEGATIVE); OPIATES URINE NEGATIVE (NEGATIVE); PHENCYCLIDINE URINE NEGATIVE (NEGATIVE)
[2018-12-11 01:23] LABS: INR 1.02; PROTHROMBIN TIME 13.5 SECONDS (12.1-14.4)
[2018-12-11 01:31] LABS: ALBUMIN 4.5 GM/DL (3.2-5.2); ALT/SGPT 36 U/L (12-78); BILIRUBIN,DIRECT 0.1 MG/DL (0.0-0.2); BILIRUBIN,TOTAL 0.5 MG/DL (0.2-1.0); BLOOD UREA NITROGEN 7 MG/DL (7-18); CALCIUM LEVEL 9.3 MG/DL (8.8-10.2); CARBON DIOXIDE LEVEL 17 MEQ/L (21-32); CHLORIDE LEVEL 107 MEQ/L (98-107); CPK CREATINE PHOSPHOKINASE 137 U/L (26-192); CREATININE FOR GFR 0.89 MG/DL (0.55-1.30); ETHYL ALCOHOL (ETHANOL) 0.139 % (0.000-0.010); GLOMERULAR FILTRATION RATE > 60.0 (>45); GLUCOSE, FASTING 69 MG/DL (70-100); LIPASE 194 U/L (73-393); MB/CK RELATIVE INDEX 1.61 (< OR =4); POTASSIUM SERUM 4.4 MEQ/L (3.5-5.1); SODIUM LEVEL 139 MEQ/L (136-145); TOTAL PROTEIN 9.1 GM/DL (6.4-8.2); TROPONIN I 0.03 NG/ML (< 0.10)
[2018-12-11] MEDS ORDERED: DILUENT IV ONE (01:45)
[2018-12-11] MEDS ORDERED: NS IV ONE (01:45)
[2018-12-11 01:55] LABS: ABG BASE EXCESS -9.3 (-2.0-2.0); ABG HCO3 16.3 MEQ/L (22.0-26.0); ABG O2 SATURATION 94.6 % (95.0-99.0); ABG PARTIAL PRESSURE CO2 34.6 mmHg (35.0-45.0); ABG PARTIAL PRESSURE O2 82.1 mmHg (75.0-100.0); ABG TOTAL CO2 17.4 MEQ/L (23.0-31.0); ABG pH (ARTERIAL) 7.292 UNITS (7.350-7.450)
[2018-12-11] MEDS ORDERED: GLIM2TAB PO (03:01)
[2018-12-11] MEDS ORDERED: METF10004 PO ×2 (03:01)
[2018-12-11] MEDS ORDERED: RANI150T PO (03:01)
[2018-12-11] MEDS ORDERED: NAPR-885 PO (03:01)
[2018-12-11] MEDS ORDERED: STEG5TAB PO (03:01)
[2018-12-11] MEDS ORDERED: CYAN1000VL IM (03:01)
[2018-12-11] MEDS ORDERED: TYLE500T78 PO (03:01)
[2018-12-11] MEDS ORDERED: VITA50005 PO (03:01)
[2018-12-11] MEDS ORDERED: ASPI81TAEC PO (03:01)
[2018-12-11] MEDS ORDERED: CALCTAB6 PO (03:01)
[2018-12-11] MEDS ORDERED: FAMOTIDINE 20 MG TAB PO PRN (05:30)
[2018-12-11] MEDS ORDERED: ACETAMINOPHEN TAB 650MG DOSE (2X325MG) PO PRN (05:30)
[2018-12-11] MEDS: ROSUVASTATIN 10 MG TAB (CRESTOR) PO SCH ×2 (05:42→21:03)
[2018-12-11 06:42] LABS: BASO % 0.8 % (0.0-1.0); EOS # 0.1 10^3/uL (0.0-0.50); EOS % 3.5 % (0.0-3.0); HEMATOCRIT 38.6 % (36.0-47.0); LYMPH # 1.4 10^3/uL (1.5-4.5); LYMPH % 36.4 % (24.0-44.0); MEAN CORPUSCULAR HEMOGLOBIN 27.9 pg (27.0-33.0); MEAN CORPUSCULAR HGB CONC 32.6 g/dl (32.0-36.5); MEAN CORPUSCULAR VOLUME 85.4 fl (80.0-96.0); MONO # 0.3 10^3/uL (0.0-0.8); MONO % 7.5 % (0.0-5.0); NEUTROPHILS # 1.9 10^3/uL (1.8-7.7); NEUTROPHILS % 51.5 % (36.0-66.0); PLATELET COUNT, AUTOMATED 114 10^3/uL (150-450); RED BLOOD COUNT 4.52 10^6/uL (4.00-5.40); WHITE BLOOD COUNT 3.7 10^3/uL (4.0-10.0)
[2018-12-11 06:46] LABS: HEMOGLOBIN 12.6 g/dl (12.0-15.5)
[2018-12-11 07:09] LABS: ALBUMIN 3.9 GM/DL (3.2-5.2); ALT/SGPT 29 U/L (12-78); BILIRUBIN,TOTAL 0.4 MG/DL (0.2-1.0); BLOOD UREA NITROGEN 8 MG/DL (7-18); CALCIUM LEVEL 8.5 MG/DL (8.8-10.2); CARBON DIOXIDE LEVEL 20 MEQ/L (21-32); CHLORIDE LEVEL 113 MEQ/L (98-107); CREATININE FOR GFR 0.84 MG/DL (0.55-1.30); GLOMERULAR FILTRATION RATE > 60.0 (>45); GLUCOSE, FASTING 112 MG/DL (70-100); MAGNESIUM LEVEL 1.6 MG/DL (1.8-2.4); POTASSIUM SERUM 4.3 MEQ/L (3.5-5.1); SODIUM LEVEL 143 MEQ/L (136-145); TOTAL PROTEIN 7.3 GM/DL (6.4-8.2)
[2018-12-11] MEDS ORDERED: D5W/0.9% SODIUM CHLORIDE 1,000 ML IV SCH (07:45)
[2018-12-11 08:00] VITALS: BP 174/84
[2018-12-11] MEDS: ASPIRIN 81 MG ENTERIC TAB PO SCH (08:04)
[2018-12-11] MEDS: PANTOPRAZOLE 40MG TAB (PROTONIX) PO SCH (08:04)
[2018-12-11] MEDS: BISOPROLOL FUMARATE 5 MG TAB PO SCH (08:05)
[2018-12-11] MEDS: LISINOPRIL 20 MG TAB PO SCH (08:05)
[2018-12-11] MEDS: ENOXAPARIN 40 MG/0.4 ML SYRINGE (J1650) SC SCH (08:06)
[2018-12-11] MEDS ORDERED: PILL CRUSHER/CUTTER 1 EACH XX PRN (08:30)
[2018-12-11] MEDS: CALCIUM/VITAMIN D 500 MG TAB PO SCH ×2 (09:40→21:03)
[2018-12-11 11:45] VITALS: BP 202/92
[2018-12-11] MEDS ORDERED: GLUCAGON FOR INJ 1 MG VIAL (J1610) SC PRN (12:45)
[2018-12-11] MEDS ORDERED: OXAZEPAM 10 MG CAP PO PRN (12:45)
[2018-12-11] MEDS ORDERED: DEXTROSE 50% 50 ML SYRINGE IV PRN (12:45)
[2018-12-11] MEDS ORDERED: GLUCOSE 4 GM CHEW TABLET PO PRN (12:45)
[2018-12-11] MEDS: amLODIPine 5 MG TAB PO SCH (12:59)
--- NOTE | 2018-12-11 13:56 | IPN ---
DATE: 12/11/2018 Rupa is seen on [address]. She was admitted with lactic acidosis. She is a diabetic with a history of alcoholism. She typically drinks six alcoholic drinks per day. She presented with sequelae of a hypoglycemic event with altered mental status. She had the obligatory lactic acid drawn, which was elevated so she got admitted for her elevated lactate level. Her blood pressure upon arriving to [address] [place] [address] was greater than 200/90, but she was having no neurologic symptoms, headache, visual disturbance, shortness of breath or chest pain. PHYSICAL EXAMINATION: Blood pressure 200/90, pulse of 70, respiratory rate 18, afebrile. General appearance: She is alert and conversant. She had a visitor in the room. She recognized me immediately though I have not seen her in many years. Pupils equal and reactive to light. No strabismus. Lungs clear. Heart regular rhythm. Abdomen soft, nontender, no masses. No peripheral edema. Mild tremor of the hands. No clonus. Moves arms and legs with equal strength. LABS: Blood alcohol on admission was 0.14. White count 3.7, hemoglobin 12.6, platelets 114. Sodium 143, potassium 4.3, BUN 8, creatinine 0.8, glucose 112. Lactic acid is down to 0.9, so we have cured that problem. Blood sugar was 70, in the emergency room it was up to 143. IMPRESSION: 1. Hypoglycemia, probably from inconsistent use of her diabetic medications. Currently on alogliptin, STEGLATRO, glimepiride 2 mg twice a day, metformin 1500 mg in the morning and 1000 mg in the evening. Her last hemoglobin A1c was 6.7% on 11/05/2018. At this point, her oral agents have been held. She is eating well. She has every 6 hour blood sugar with coverage ordered. I have stopped her dextrose with saline. 2. Lactic acidosis, probably from alcohol abuse as well as her metformin. She was intoxicated upon arrival to the emergency room with a blood alcohol of 0.14. We discussed the importance of abstaining from alcohol. Serax has been ordered for alcohol withdrawal symptoms. 3. Hypertension. Her blood pressure is elevated. Some of this is due to alcohol withdrawal. I also not sure how consistently she takes her blood pressure medications. I have added amlodipine 5 mg, first dose now, to her bisoprolol and lisinopril. She also received some ketorolac for unknown reasons last night, which could also elevated her pressure by blunting the effects of her LUCY inhibitor. I expect that she will be ready for discharge in the morning.
[2018-12-11 14:00] VITALS: BP 142/69
[2018-12-11] MEDS: HumaLOG INSULIN (NovoLOG) PER UNIT SC SCH (17:24)
[2018-12-11 17:58] VITALS: BP 134/66
--- NOTE | 2018-12-11 20:54 | ECGEPIP ---
Stationary ECG Study [facility] - ED Test Date: 2018-12-11 Pat Name: MINO NEWTON Department: Room: [place] [address] Gender: F Health Commissioner: AUSTIN : 1955 Requested By: DEEPTHI Davidson Order Number: [id number] Reading MD: Lori Flannery Measurements Intervals [place] Rate: 90 P: 33 ID: 199 QRS: -27 QRSD: 102 T: 34 QT: 387 QTc: 474 Interpretive Statements SINUS RHYTHM BORDERLINE LEFT AXIS DEVIATION VOLTAGE CRITERIA FOR LVH SIMILAR 10/07/18 Electronically Signed On 12-11-2018 20:54:13 EST by Lori Flannery
[2018-12-11] MEDS ORDERED: HumaLOG INSULIN (NovoLOG) PER UNIT SC SCH (21:00)
[2018-12-11 22:00] VITALS: BP 149/68
[2018-12-12 02:00] VITALS: BP 143/74
[2018-12-12 06:00] VITALS: BP 160/80
[2018-12-12 06:52] LABS: HEMATOCRIT 40.6 % (36.0-47.0); MEAN CORPUSCULAR HEMOGLOBIN 27.2 pg (27.0-33.0); MEAN CORPUSCULAR VOLUME 84.9 fl (80.0-96.0); PLATELET COUNT, AUTOMATED 115 10^3/uL (150-450); RED BLOOD COUNT 4.78 10^6/uL (4.00-5.40); WHITE BLOOD COUNT 4.7 10^3/uL (4.0-10.0)
[2018-12-12 07:20] LABS: BLOOD UREA NITROGEN 10 MG/DL (7-18); CALCIUM LEVEL 9.4 MG/DL (8.8-10.2); CARBON DIOXIDE LEVEL 23 MEQ/L (21-32); CHLORIDE LEVEL 107 MEQ/L (98-107); CREATININE FOR GFR 0.84 MG/DL (0.55-1.30); GLOMERULAR FILTRATION RATE > 60.0 (>45); GLUCOSE, FASTING 140 MG/DL (70-100); POTASSIUM SERUM 3.9 MEQ/L (3.5-5.1); SODIUM LEVEL 139 MEQ/L (136-145)
[2018-12-12] MEDS: HumaLOG INSULIN (NovoLOG) PER UNIT SC SCH ×2 (08:15→12:06)
[2018-12-12] MEDS: LISINOPRIL 20 MG TAB PO SCH (08:15)
[2018-12-12] MEDS: ENOXAPARIN 40 MG/0.4 ML SYRINGE (J1650) SC SCH (08:15)
[2018-12-12] MEDS: PANTOPRAZOLE 40MG TAB (PROTONIX) PO SCH (08:15)
[2018-12-12] MEDS: ASPIRIN 81 MG ENTERIC TAB PO SCH (08:15)
[2018-12-12] MEDS: CALCIUM/VITAMIN D 500 MG TAB PO SCH (08:15)
[2018-12-12 08:16] VITALS: BP 158/72
[2018-12-12] MEDS: amLODIPine 5 MG TAB PO SCH (08:16)
[2018-12-12] MEDS: BISOPROLOL FUMARATE 5 MG TAB PO SCH (08:16)
[2018-12-12 10:00] VITALS: BP 156/71
--- NOTE | 2018-12-12 17:40 | DS.PDOC ---
Discharge Summary General Date of Admission Dec 10, 2018 at 22:17 Date of Discharge Dec 12, 2018 Primary Care Physician: LUÍS BARRON Attending Physician: Rene Hinson MD Discharge Summary PROCEDURES PERFORMED DURING STAY: None. ADMITTING DIAGNOSES: 1. Lactic acidosis due to diabetes mellitus DISCHARGE DIAGNOSES: 1. Hypoglycemia 2. Lactic acidosis 3. HTN COMPLICATIONS/CHIEF COMPLAINT: Lactic Acidosis Due To Diabetes Mellitus. HISTORY OF PRESENT ILLNESS: Patient is a 63 yo female who presented with altered mental status secondary to hypoglycemia. Patient inconsistently uses her diabetes medications. Labs in the ER showed patient had elevated lactic acid of 5.6 with normal electrolytes and gap. Likely was secondary to vomiting. Her alcohol level on admission was 0.139. Patient was given a couple boluses in the ER of IV fluid and lactic acid improved. HOSPITAL COURSE: Since admission patient's nausea improved with IV medications. She was placed on sliding scale insulin. Her symptoms improved over the next day and patient was tolerating regular diet on day of discharge. Discussed with patient to take diabetes medication. Suspect may have been secondary to hypoglycemia. Holding glimepiride since common cause of hypoglycemia. Discussed to avoid alcohol use as a diabetic. DISCHARGE MEDICATIONS: Please see below. ALLERGIES: Please see below. PHYSICAL EXAMINATION ON DISCHARGE: VITAL SIGNS: Please see below. GENERAL: Alert, cooperative. HEENT:Atraumatic. NECK: Supple. CARDIOVASCULAR EXAMINATION: Normal s1, s2. RESPIRATORY EXAMINATION: Clear to auscultation. ABDOMINAL EXAMINATION: Soft, nondistended. EXTREMITIES: No lower extremity swelling. SKIN: No rashes, lesions. NEUROLOGICAL EXAMINATION: Answers questions appropriately. PSYCHIATRIC EXAMINATION: Normal affect. LABORATORY DATA: Please see below. IMAGING: Head CT No intracranial abnormality.Sinus disease. PROGNOSIS: Stable ACTIVITY: As tolerated. DIET: Consistent carbohydrate DISCHARGE PLAN: Home DISPOSITION: Home, Self-Care. DISCHARGE INSTRUCTIONS: 1. Follow up with PCP. 2. Hold Glimerpiride, common cause of hypoglycemia DISCHARGE CONDITION: Stable. TIME SPENT ON DISCHARGE: Greater than 30 minutes. Vital Signs/I&Os Vital Signs Date Time Temp Pulse Resp B/P (MAP) Pulse Ox O2 Delivery O2 Flow Rate FiO2 12/12/18 10:00 97.6 63 18 156/71 (99) 98 12/11/18 05:48 Room Air I&O- Last 24 Hours up to 6 AM 12/12/18 06:00 Intake Total 1680 ml Output Total 2450 ml Balance -770 ml Laboratory Data Labs 24H Laboratory Tests 2 12/11/18 19:41: Bedside Glucose (Misc Panel) 150H 12/12/18 06:26: Nucleated Red Blood Cells % (auto) 0.0, Anion Gap 9, Glomerular Filtration Rate > 60.0, Blood Urea Nitrogen 10, Creatinine 0.84, Sodium Level 139, Potassium Level 3.9, Chloride Level 107, Carbon Dioxide Level 23, Calcium Level 9.4 12/12/18 11:22: Bedside Glucose (Misc Panel) 212H CBC/BMP Laboratory Tests 12/12/18 06:26 Red Blood Count 4.78, Mean Corpuscular Volume 84.9, Mean Corpuscular Hemoglobin 27.2, Mean Corpuscular Hemoglobin Concent 32.0, Red Cell Distribution Width 14.5, Calcium Level 9.4 FSBS Laboratory Tests Test 12/11/18 19:41 12/12/18 11:22 Range/Units Bedside Glucose (Misc Panel) 150 212 80-115 MG/DL Microbiology Microbiology 12/11/18 Respiratory Virus Panel (PCR) (RUBEN) - Final, Complete Discharge Medications Scheduled Alogliptin Benzoate (Alogliptin) 25 Mg Tab, 25 MG PO DAILY, (Reported) Aspirin (Aspirin EC) 81 Mg Tabec, 81 MG PO DAILY, (Reported) Bisoprolol Fumarate (Bisoprolol Fumarate) 5 Mg Tab, 5 MG PO DAILY, (Reported) Calcium/Vitamin D (Calcium 600-D 600-400 mg-Unit) 1 Tab Tab, 1 TAB PO BID, (Reported) Cyanocobalamin (Cyanocobalamin) 1,000 Mcg/1 Ml Inj, 1,000 MCG IM MTHLY, (Reported) Ergocalciferol (Vitamin D) 50,000 Unit Cap, 50,000 UNIT PO ASDIRECTED, (Reported) TAKES ON THE AND OF EACH MONTH Ertugliflozin l-Pyroglutamic A (Steglatro) 5 Mg Tab, 5 MG PO DAILY, (Reported) Lisinopril (Lisinopril) 20 Mg Tab, 20 MG PO DAILY, (Reported) Metformin Hydrochloride (Metformin HCl) 1,000 Mg Tab, 1,000 MG PO BID, (Reported) PATIENT SAYS SHE HAS TO CRUSH THIS MEDICATION, SHE CANNOT SWALLOW THE WHOLE PILL OR HALF PILL Metformin Hydrochloride (Metformin HCl) 1,000 Mg Tab, 500 MG PO DAILY, (Reported) TAKES AT NOON. PATIENT SAYS SHE HAS TO CRUSH THIS MEDICATION, SHE CANNOT SWALLOW THE WHOLE PILL OR HALF PILL. Rosuvastatin Calcium (Rosuvastatin Calcium) 20 Mg Tab, 20 MG PO QHS, (Reported) Scheduled PRN Acetaminophen (Tylenol Extra Strength) 500 Mg Tab, 1,000 MG PO Q6H PRN for PAIN, (Reported) Naproxen (Naproxen) 500 Mg Tab, 500 MG PO BID PRN for PAIN, (Reported) Ranitidine HCl (Ranitidine HCl) 150 Mg Tab, 1 TAB PO BID PRN for HEARTBURN, (Reported) Allergies Coded Allergies: No Known Allergies (Unverified , 12/11/18) GME ATTESTATION GME ATTESTATION My faculty preceptor for this patient encounter was physically present during the encounter and was fully available. All aspects of the patient interview, examination, medical decision making process, and medical care plan development were reviewed and approved by the faculty preceptor. The faculty preceptor is aware and concurs with the plan as stated in the body of this note and will attest to such by his/her cosignature. PURNIMA FINK DO Dec 12, 2018 17:40
[2018-12-17] MEDS ORDERED: VITAMIN D 50,000 UNITS CAPSULE (ERGOCALCIFEROL 1.25MG) PO SCH (09:00)
== END 2018-12-12 13:55 | disposition home or self-care (01) ==
LOC: M ED 22:16 → M ED INP 22:17 → M MS4PR 12-11 11:47
PROVIDERS: ADMIT Family Medicine; ATTEND Family Medicine
DX: E11.649 Type 2 diabetes mellitus with hypoglycemia without coma (principal); I10 Essential (primary) hypertension; Z79.84 Long term (current) use of oral hypoglycemic drugs; Z79.82 Long term (current) use of aspirin; Z79.899 Other long term (current) drug therapy
CPT/HCPCS: 36415; 36600; 70450; 80048; 80053; 80307; 81001; 82550; 82553; 82803; 83605; 83690; 83735; 85025; 85027; 85610; 85730; 87486; 87581; 87633; 87798; 93005; 96361; 96372; 96374; 96375; 99285; G0480; J1650; J1885; J2405; Q0162

== ENCOUNTER 2018-12-28 22:57 | Emergency (ER) | payer OTHER ==
[~2018-12-28] VITALS: Ht 160 cm; Wt 69.5 kg
[~2018-12-28 22:57] MED LIST changes: +ASPI81TAEC PO; +CALCTAB6 PO; +CYAN1000VL IM; +GLIM2TAB PO; +METF10004 PO; +NAPR-885 PO; +STEG5TAB PO; +TYLE500T78 PO; +VITA50005 PO
[2018-12-28] MEDS ORDERED: NS 1,000 ML IV ONE (23:30)
[2018-12-28] MEDS ORDERED: ONDANSETRON 4MG/2ML VIAL (J2405) IV ONE (23:30)
[2018-12-29 00:27] LABS: BASO # 0.1 10^3/uL (0.0-0.2); BASO % 0.8 % (0.0-1.0); EOS # 0.2 10^3/uL (0.0-0.50); HEMATOCRIT 43.1 % (36.0-47.0); LYMPH # 2.3 10^3/uL (1.5-4.5); LYMPH % 24.9 % (24.0-44.0); MEAN CORPUSCULAR HGB CONC 32.5 g/dl (32.0-36.5); MEAN CORPUSCULAR VOLUME 86.2 fl (80.0-96.0); MONO # 0.7 10^3/uL (0.0-0.8); MONO % 7.9 % (0.0-5.0); NEUTROPHILS # 5.9 10^3/uL (1.8-7.7); PLATELET COUNT, AUTOMATED 155 10^3/uL (150-450); WHITE BLOOD COUNT 9.1 10^3/uL (4.0-10.0)
[2018-12-29] MEDS ORDERED: NS 1,000 ML IV ONE (01:15)
[2018-12-29 01:36] LABS: ALBUMIN 3.9 GM/DL (3.2-5.2); ALT/SGPT 24 U/L (12-78); BILIRUBIN,DIRECT 0.2 MG/DL (0.0-0.2); BILIRUBIN,TOTAL 0.5 MG/DL (0.2-1.0); BLOOD UREA NITROGEN 14 MG/DL (7-18); CALCIUM LEVEL 8.7 MG/DL (8.8-10.2); CARBON DIOXIDE LEVEL 18 MEQ/L (21-32); CHLORIDE LEVEL 105 MEQ/L (98-107); ETHYL ALCOHOL (ETHANOL) 0.224 % (0.000-0.010); GLOMERULAR FILTRATION RATE > 60.0 (>45); GLUCOSE, FASTING 151 MG/DL (70-100); LIPASE 467 U/L (73-393); POTASSIUM SERUM 3.6 MEQ/L (3.5-5.1); SODIUM LEVEL 137 MEQ/L (136-145); TOTAL PROTEIN 7.5 GM/DL (6.4-8.2)
[2018-12-29 03:00] VITALS: BP 125/65
== END 2018-12-29 03:15 | disposition home or self-care (01) ==
LOC: M ED 22:57
DX: F10.120 Alcohol abuse with intoxication, uncomplicated (principal); R11.10 Vomiting, unspecified; E11.9 Type 2 diabetes mellitus without complications; I10 Essential (primary) hypertension; F17.200 Nicotine dependence, unspecified, uncomplicated; Z79.899 Other long term (current) drug therapy; Z79.82 Long term (current) use of aspirin; Z79.84 Long term (current) use of oral hypoglycemic drugs
CPT/HCPCS: 36415; 80048; 80076; 83690; 85025; 93041; 96374; 99285; G0480; J2405

== ENCOUNTER 2019-01-05 22:24 | Emergency (ER) | payer OTHER ==
[~2019-01-05 22:24] MED LIST changes: -/MOXI40TA; -/WARF25TA OR; -/WARF2TA; -/WARF4TA; -ASPI1TAB PO; +ASPI81TA26 PO; +AVEL1TAB2; +COUM1TAB14; +COUM1TAB16; +COUM1TAB18 OR; -GLIM2TA PO; +GLIM2TAB29 PO; -NAPR-50 PO; +NAPR-837 PO
[2019-01-05 22:29] VITALS: BP 146/70
== END 2019-01-05 22:58 | disposition home or self-care (01) ==
LOC: M ED 22:24
DX: F10.129 Alcohol abuse with intoxication, unspecified (principal); R09.89 Other specified symptoms and signs involving the circulatory and respiratory systems; E11.9 Type 2 diabetes mellitus without complications; I10 Essential (primary) hypertension; F10.20 Alcohol dependence, uncomplicated; Z79.82 Long term (current) use of aspirin; Z79.84 Long term (current) use of oral hypoglycemic drugs; Z79.899 Other long term (current) drug therapy

== ENCOUNTER → 2019-01-07 | Outpatient (REF) | payer OTHER ==
[~2019-01-07] MED LIST changes: +/MOXI40TA; +/WARF25TA OR; +/WARF2TA; +/WARF4TA; +ASPI1TAB PO; -ASPI81TA26 PO; -AVEL1TAB2; -COUM1TAB14; -COUM1TAB16; -COUM1TAB18 OR; +GLIM2TA PO; -GLIM2TAB29 PO; +NAPR-50 PO; -NAPR-837 PO
== END ==
LOC: M SFHCWAGY 09:39
PROVIDERS: ATTEND Nurse Practitioner Family
DX: Z12.4 Encounter for screening for malignant neoplasm of cervix (principal); N95.2 Postmenopausal atrophic vaginitis

== ENCOUNTER → 2019-01-13 | Outpatient (CLI) | payer OTHER ==
[~2019-01-13] MED LIST changes: -/MOXI40TA; -/WARF25TA OR; -/WARF2TA; -/WARF4TA; +AVEL1TAB2; +COUM1TAB14; +COUM1TAB16; +COUM1TAB18 OR; -GLIM2TA PO; +GLIM2TAB29 PO
--- NOTE | 2019-01-13 12:49 | REP ---
PELVIC SONOGRAPHY: HISTORY: Endometrial thickening. FINDINGS: Transabdominal and transvaginal scanning are performed. Uterine dimensions are normal at the 9.4 x 2.7 x 5.7 cm. Endometrial echo 0.4 cm thick and centrally placed. There is a small quantity of endometrial fluid. There are mild cystic changes in the endometrium of the lower uterine segment. A Nabothian cyst is seen in the cervix. There are peripheral uterine calcifications. Urinary bladder grullon are smooth and thin. Normal ovaries are seen. Right ovary measures 1.6 x 1.3 x 1.7 cm per. Left ovary dimensions are 1.6 x 0.8 x 1.8 cm. IMPRESSION: Small quantity of endometrial fluid. 4 mm endometrial thickness. Normal ovaries. Electronically Signed by Ankur Ugarte MD 01/13/2019 01:04 P
== END ==
LOC: M WHC 09:20
PROVIDERS: ATTEND Nurse Practitioner Family
DX: R93.89 Abnormal findings on diagnostic imaging of other specified body structures (principal)

== ENCOUNTER → 2019-02-21 | Outpatient (REF) | payer OTHER ==
[~2019-02-21] MED LIST changes: -ASPI1TAB PO; +ASPI81TA26 PO; -NAPR-50 PO; +NAPR-837 PO
[2019-02-21 16:12] LABS: CALCIUM LEVEL 10.5 MG/DL (8.8-10.2); CREATININE FOR GFR 1.06 MG/DL (0.55-1.30); GLOMERULAR FILTRATION RATE 55.4 (>45); POTASSIUM SERUM 4.2 MEQ/L (3.5-5.1)
[2019-02-21 16:13] LABS: ALBUMIN 4.2 GM/DL (3.2-5.2); BILIRUBIN,TOTAL 0.7 MG/DL (0.2-1.0); TOTAL PROTEIN 8.4 GM/DL (6.4-8.2)
[2019-02-21 16:19] LABS: TOTAL 25(OH) VITAMIN D 55.2 NG/ML (30.0-100.0)
[2019-02-21 16:34] LABS: HEMOGLOBIN A1c 7.9 %
[2019-02-21 16:39] LABS: CREATININE, URINE 45.4 MG/DL; MALB URINE SIEMENS 38.2 MG/L; MAU/CREAT RATIO 84.1 MCG/MG (0.0-30.0)
== END ==
LOC: M SFHCPLAZ 14:18
PROVIDERS: ATTEND Nurse Practitioner Family
DX: E11.65 Type 2 diabetes mellitus with hyperglycemia (principal); E55.9 Vitamin D deficiency, unspecified

== ENCOUNTER → 2019-02-27 | Outpatient (REF) | payer OTHER ==
[2019-02-27 12:54] LABS: ALBUMIN 4.1 GM/DL (3.2-5.2); ALT/SGPT 29 U/L (12-78); BILIRUBIN,TOTAL 0.5 MG/DL (0.2-1.0); BLOOD UREA NITROGEN 16 MG/DL (7-18); CALCIUM LEVEL 9.8 MG/DL (8.8-10.2); CARBON DIOXIDE LEVEL 26 MEQ/L (21-32); CHLORIDE LEVEL 104 MEQ/L (98-107); CREATININE FOR GFR 0.97 MG/DL (0.55-1.30); GLOMERULAR FILTRATION RATE > 60.0 (>45); GLUCOSE, FASTING 311 MG/DL (70-100); POTASSIUM SERUM 4.5 MEQ/L (3.5-5.1); SODIUM LEVEL 138 MEQ/L (136-145); TOTAL PROTEIN 7.7 GM/DL (6.4-8.2)
[2019-02-27 13:02] LABS: TOTAL 25(OH) VITAMIN D 64.5 NG/ML (30.0-100.0)
[2019-02-27 13:13] LABS: HEMOGLOBIN A1c 8.1 %
[2019-02-27 13:20] LABS: CREATININE, URINE 38.9 MG/DL; MALB URINE SIEMENS 18.6 MG/L; MAU/CREAT RATIO 47.8 MCG/MG (0.0-30.0)
== END ==
LOC: M SFHCPLAZ 07:52
PROVIDERS: ATTEND Nurse Practitioner Family
DX: E11.65 Type 2 diabetes mellitus with hyperglycemia (principal); E55.9 Vitamin D deficiency, unspecified

== ENCOUNTER 2019-04-06 18:10 | Emergency (ER) | payer OTHER ==
[~2019-04-06] VITALS: Ht 160 cm; Wt 68.6 kg
[2019-04-06] MEDS ORDERED: ROSU20TA4 PO (18:26)
[2019-04-06 19:02] LABS: BASO % 0.7 % (0.0-1.0); EOS # 0.3 10^3/uL (0.0-0.50); EOS % 4.6 % (0.0-3.0); HEMATOCRIT 45.2 % (36.0-47.0); HEMOGLOBIN 14.8 g/dl (12.0-15.5); LYMPH # 1.8 10^3/uL (1.5-4.5); MEAN CORPUSCULAR HEMOGLOBIN 28.8 pg (27.0-33.0); MEAN CORPUSCULAR HGB CONC 32.7 g/dl (32.0-36.5); MEAN CORPUSCULAR VOLUME 88.1 fl (80.0-96.0); MONO # 0.6 10^3/uL (0.0-0.8); MONO % 9.7 % (0.0-5.0); NEUTROPHILS # 3.4 10^3/uL (1.8-7.7); NEUTROPHILS % 55.7 % (36.0-66.0); PLATELET COUNT, AUTOMATED 137 10^3/uL (150-450); RED BLOOD COUNT 5.13 10^6/uL (4.00-5.40); WHITE BLOOD COUNT 6.1 10^3/uL (4.0-10.0)
[2019-04-06] MEDS ORDERED: NS 1,000 ML IV ONE (19:15)
[2019-04-06] MEDS ORDERED: ONDANSETRON 4MG/2ML VIAL (J2405) IV ONE (19:15)
[2019-04-06 19:34] LABS: PROTHROMBIN TIME 12.9 SECONDS (11.8-14.0)
[2019-04-06 19:35] LABS: PARTIAL THROMBOPLASTIN TIME 29.3 SECONDS (25.0-38.4)
[2019-04-06 19:41] LABS: ALBUMIN 4.4 GM/DL (3.2-5.2); ALT/SGPT 34 U/L (12-78); AMYLASE 37 U/L (25-115); BILIRUBIN,DIRECT 0.2 MG/DL (0.0-0.2); BILIRUBIN,TOTAL 0.7 MG/DL (0.2-1.0); BLOOD UREA NITROGEN 12 MG/DL (7-18); CALCIUM LEVEL 10.3 MG/DL (8.8-10.2); CARBON DIOXIDE LEVEL 24 MEQ/L (21-32); CHLORIDE LEVEL 105 MEQ/L (98-107); CK-MB VALUE MASS 1.8 NG/ML (<3.6); CPK CREATINE PHOSPHOKINASE 80 U/L (26-192); CREATININE FOR GFR 0.99 MG/DL (0.55-1.30); GLOMERULAR FILTRATION RATE 59.9 (>45); GLUCOSE, FASTING 113 MG/DL (70-100); LIPASE 171 U/L (73-393); MB/CK RELATIVE INDEX 2.25 (< OR =4); POTASSIUM SERUM 4.7 MEQ/L (3.5-5.1); SODIUM LEVEL 140 MEQ/L (136-145); TOTAL PROTEIN 8.8 GM/DL (6.4-8.2); TROPONIN I < 0.02 NG/ML (< 0.10)
[2019-04-06] MEDS ORDERED: cloNIDine 0.2 MG TAB PO ONE (19:45)
[2019-04-06 19:50] VITALS: BP 172/100
[2019-04-06] MEDS ORDERED: MACR100C43 PO (21:27)
[2019-04-06 21:30] VITALS: BP 136/69
--- NOTE | 2019-04-07 06:58 | ECGEPIP ---
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
--- NOTE | 2019-04-07 07:20 | REP ---
Clinical: Hypertension . Comparison: 10/07/2018 . Technique: PA and lateral. Findings: The mediastinum and cardiac silhouette are normal. The lung sharp are clear and without acute consolidation, effusion, or pneumothorax. Degenerative changes involving the thoracic spine and bilateral shoulders (right greater than left) again noted. Impression: 1. No acute cardiopulmonary process. Electronically Signed by Amado Hernandez MD 04/07/2019 07:12 A
== END 2019-04-06 21:40 | disposition home or self-care (01) ==
LOC: M ED 18:10
DX: I16.0 Hypertensive urgency (principal); N39.0 Urinary tract infection, site not specified; F10.10 Alcohol abuse, uncomplicated; E11.9 Type 2 diabetes mellitus without complications; E78.5 Hyperlipidemia, unspecified; Z79.82 Long term (current) use of aspirin; Z79.84 Long term (current) use of oral hypoglycemic drugs; Z79.899 Other long term (current) drug therapy
CPT/HCPCS: 71046; 80048; 80076; 81001; 82150; 82550; 82553; 83690; 85025; 85610; 85730; 87088; 87186; 93005; 93041; 96361; 96374; 99285; J2405

== ENCOUNTER 2019-04-08 18:13 | Emergency (ER) | payer OTHER ==
[~2019-04-08] VITALS: Ht 160 cm; Wt 68.6 kg
[~2019-04-08 18:13] MED LIST changes: +MACR100C43 PO; -ROSU20TA4 PO; +ROSU20TA5 PO
[2019-04-08] MEDS ORDERED: RANI150T14 (18:21)
[2019-04-08] MEDS ORDERED: LABETALOL HCL 100 MG/20 ML VIAL IV STA (20:07)
[2019-04-08 20:29] LABS: BASO % 0.5 % (0.0-1.0); EOS # 0.1 10^3/uL (0.0-0.50); EOS % 2.4 % (0.0-3.0); HEMATOCRIT 41.4 % (36.0-47.0); HEMOGLOBIN 13.5 g/dl (12.0-15.5); LYMPH # 1.2 10^3/uL (1.5-4.5); LYMPH % 19.8 % (24.0-44.0); MEAN CORPUSCULAR HEMOGLOBIN 28.4 pg (27.0-33.0); MEAN CORPUSCULAR HGB CONC 32.6 g/dl (32.0-36.5); MEAN CORPUSCULAR VOLUME 87.2 fl (80.0-96.0); MONO # 0.5 10^3/uL (0.0-0.8); MONO % 8.7 % (0.0-5.0); NEUTROPHILS % 68.4 % (36.0-66.0); PLATELET COUNT, AUTOMATED 118 10^3/uL (150-450); RED BLOOD COUNT 4.75 10^6/uL (4.00-5.40); WHITE BLOOD COUNT 5.9 10^3/uL (4.0-10.0)
--- NOTE | 2019-04-08 20:35 | REP ---
Clinical: Acute headache and hypertension. Comparison: 12/11/2018 . Findings: Age-related atrophy and microvascular ischemic changes are appreciated. The ventricles and sulci are symmetric. Jerome-white differentiation is maintained. There is no evidence for acute intracranial hemorrhage, mass/mass effect, pathology or infarction. No extra-axial fluid collection. Calvarium is intact. Paranasal sinuses and mastoid air cells are clear. Impression: Age related atrophy and microvascular ischemic changes. No acute intracranial hemorrhage, infarction, or mass/mass effect. Electronically Signed by Amado Hernandez MD 04/08/2019 08:27 P
[2019-04-08 20:38] LABS: BLOOD UREA NITROGEN 11 MG/DL (7-18); CALCIUM LEVEL 9.1 MG/DL (8.8-10.2); CARBON DIOXIDE LEVEL 23 MEQ/L (21-32); CHLORIDE LEVEL 106 MEQ/L (98-107); CK-MB VALUE MASS < 1.0 NG/ML (<3.6); CPK CREATINE PHOSPHOKINASE 84 U/L (26-192); CREATININE FOR GFR 0.95 MG/DL (0.55-1.30); ETHYL ALCOHOL (ETHANOL) < 0.003 % (0.000-0.010); GLOMERULAR FILTRATION RATE > 60.0 (>45); GLUCOSE, FASTING 102 MG/DL (70-100); MB/CK RELATIVE INDEX 1.19 (< OR =4); POTASSIUM SERUM 3.9 MEQ/L (3.5-5.1); SODIUM LEVEL 139 MEQ/L (136-145); TROPONIN I < 0.02 NG/ML (< 0.10)
[2019-04-08 21:34] VITALS: BP 224/108
[2019-04-09] MEDS ORDERED: KETOROLAC 30 MG/ML VIAL (J1885) IV ONE (00:45)
[2019-04-09] MEDS ORDERED: METOCLOPRAMIDE INJ 10MG/2ML VIAL (J2765) IV ONE (00:45)
[2019-04-09] MEDS ORDERED: diphenhydrAMINE INJ 50MG/ML VIAL (J1200) IV ONE (00:45)
[2019-04-09 03:30] VITALS: BP 143/73
--- NOTE | 2019-04-09 06:09 | REP ---
Clinical: Acute chest pain . Comparison: 04/06/2019 or . Findings: The mediastinum and cardiac silhouette are stable and within normal limits for portable technique. The lung sharp are clear without acute consolidation, effusion, or pneumothorax. Skeletal structures are intact. Impression: No acute cardiopulmonary process appreciated. Electronically Signed by Amado Hernandez MD 04/09/2019 06:00 A
--- NOTE | 2019-04-09 21:31 | ECGEPIP ---
[facility] - ED Test Date: 2019-04-08 Pat Name: MINO NEWTON Department: Room: - Gender: Female Reconditioner: andree : 1955 Requested By: DEEPTHI Davidson Order Number: [id number] Reading MD: Lori Flannery Measurements Intervals [place] Rate: 71 P: 21 IA: 184 QRS: QRSD: 100 T: 23 QT: 387 QTc: 423 Interpretive Statements SINUS RHYTHM VOLTAGE CRITERIA FOR LVH SIMILAR 04/06/19 Electronically Signed on 04-09-2019 21:31:20 EDT by Lori Flannery
== END 2019-04-09 03:47 | disposition home or self-care (01) ==
LOC: M ED 18:13
DX: I10 Essential (primary) hypertension (principal); E11.9 Type 2 diabetes mellitus without complications; E78.9 Disorder of lipoprotein metabolism, unspecified; F10.10 Alcohol abuse, uncomplicated; Z79.899 Other long term (current) drug therapy; Z79.84 Long term (current) use of oral hypoglycemic drugs; Z79.82 Long term (current) use of aspirin; F17.210 Nicotine dependence, cigarettes, uncomplicated
CPT/HCPCS: 36415; 70450; 71045; 80048; 82550; 82553; 85025; 93005; 93041; 94760; 96374; 96375; 99285; G0480; J1200; J1885; J2765

== ENCOUNTER 2019-05-17 18:09 | Emergency (ER) | payer OTHER ==
[~2019-05-17] VITALS: Ht 160 cm; Wt 70.7 kg
[~2019-05-17 18:09] MED LIST changes: +RANI150T14
[2019-05-17] MEDS ORDERED: NS 1,000 ML IV ONE (19:00)
[2019-05-17] MEDS ORDERED: GI COCKTAIL 50ML BTL(HYOSCYAMINE/MAALOX/LIDOCAINE VISCOUS)(1:3:1) PO ONE (19:15)
[2019-05-17 19:42] LABS: BASO # 0.1 10^3/uL (0.0-0.2); BASO % 0.7 % (0.0-1.0); EOS # 0.2 10^3/uL (0.0-0.50); EOS % 3.2 % (0.0-3.0); HEMATOCRIT 43.7 % (36.0-47.0); HEMOGLOBIN 14.4 g/dl (12.0-15.5); LYMPH # 1.8 10^3/uL (1.5-4.5); LYMPH % 24.8 % (24.0-44.0); MEAN CORPUSCULAR HEMOGLOBIN 29.9 pg (27.0-33.0); MEAN CORPUSCULAR VOLUME 90.7 fl (80.0-96.0); MONO # 0.5 10^3/uL (0.0-0.8); MONO % 7.5 % (0.0-5.0); NEUTROPHILS # 4.6 10^3/uL (1.8-7.7); NEUTROPHILS % 63.5 % (36.0-66.0); PLATELET COUNT, AUTOMATED 157 10^3/uL (150-450); RED BLOOD COUNT 4.82 10^6/uL (4.00-5.40); WHITE BLOOD COUNT 7.2 10^3/uL (4.0-10.0)
[2019-05-17 20:49] LABS: ALBUMIN 3.7 GM/DL (3.2-5.2); BILIRUBIN,DIRECT 0.1 MG/DL (0.0-0.2); BILIRUBIN,TOTAL 0.5 MG/DL (0.2-1.0); CREATININE FOR GFR 0.99 MG/DL (0.55-1.30); GLOMERULAR FILTRATION RATE 59.9 (>45); POTASSIUM SERUM 4.5 MEQ/L (3.5-5.1); TOTAL PROTEIN 7.7 GM/DL (6.4-8.2)
--- NOTE | 2019-05-17 23:00 | REPVR ---
EXAM: CT Abdomen and Pelvis Without Contrast EXAM DATE/TIME: 05/17/2019 9:29 PM CLINICAL HISTORY: 63 years old, female; Abdominal pain; Localized; Lower; Additional info: Flank pain, RO kidney stone TECHNIQUE: Imaging protocol: Axial computed tomography images of the abdomen and pelvis without contrast. Coronal and sagittal reformatted images were created and reviewed. Radiation optimization: All CT scans at this facility use at least one of these dose optimization techniques: automated exposure control; mA and/or kV adjustment per patient size (includes targeted exams where dose is matched to clinical indication); or iterative reconstruction. COMPARISON: CT ABD PELVIS W/O CONTRAST 05/16/2018 2:47 AM FINDINGS: Lungs: Minimal bilateral dependent atelectasis. Liver: Slightly nodular surface of the liver and relative prominence of the caudate lobe. Gallbladder and bile ducts: The gallbladder is contracted with no stones. Pancreas: Normal. No ductal dilation. Spleen: Borderline splenomegaly measuring 13.0 cm. Adrenals: Normal. No mass. Kidneys and ureters: Normal. No hydronephrosis. Stomach and bowel: Normal. No obstruction. No mucosal thickening. Appendix: There are no changes of appendicitis. A normal appendix is not seen. Intraperitoneal space: Normal. No free air. No significant fluid collection. Vasculature: There is mild calcification of the abdominal aorta with extension into the iliac arteries. Lymph nodes: Normal. No enlarged lymph nodes. Bladder: Unremarkable as visualized. Reproductive: Unremarkable as visualized. Bones/joints: Bilateral hip prostheses with beam hardening artifact in the pelvis. Prominent cystic or lytic change around the acetabular component of the left hip prosthesis with interval posterior cortical destruction since the prior study and may reflect particle disease. Soft tissues: Anterior abdominal portal venous collaterals in the epigastrium which appear to extend cephalad toward chest. IMPRESSION: 1. Hepatic cirrhosis with borderline splenomegaly and some portal venous collateralization. 2. Bilateral hip prostheses with beam hardening artifact obscuring the caudal aspect of the pelvis. There is lytic change at the posterior superior aspect of the left acetabular component with interval increased cortical destruction posteriorly since 05/16/2018 and may reflect particle disease. 3. No renal or ureteral calculi are evident and there is no evidence of obstructive uropathy. COMMENT: Consistent with the [employer]'s Incidental Findings Committee Report (J Am Brooke Radiol 2010): Unless the patient's specific circumstances suggest otherwise, any liver lesion 0.5 cm or less, any cystic kidney lesion less than 1.0 cm, and/or any adrenal lesion 1.0 cm or less not otherwise characterized in this report as possessing suspicious or indeterminate imaging features is/are highly likely to be benign and do not require follow-up imaging or biopsy. Electronically signed by: Tyree Carty On 05/17/2019 23:00:06 PM
[2019-05-17] MEDS ORDERED: KEFL500C17 PO (23:19)
[2019-05-17] MEDS ORDERED: CEPHALEXIN 500 MG CAP PO ONE (23:30)
[2019-05-17 23:51] VITALS: BP 162/87
== END 2019-05-17 23:53 | disposition home or self-care (01) ==
LOC: M ED 18:09
DX: K74.60 Unspecified cirrhosis of liver (principal); N39.0 Urinary tract infection, site not specified; E11.9 Type 2 diabetes mellitus without complications; E78.5 Hyperlipidemia, unspecified; Z79.82 Long term (current) use of aspirin; Z79.84 Long term (current) use of oral hypoglycemic drugs; Z79.899 Other long term (current) drug therapy; Z86.711 Personal history of pulmonary embolism; Z96.643 Presence of artificial hip joint, bilateral; Z96.653 Presence of artificial knee joint, bilateral

== ENCOUNTER → 2019-05-27 | Outpatient (REF) | payer OTHER ==
[~2019-05-27] MED LIST changes: +KEFL500C17 PO
[2019-05-27 12:14] LABS: TOTAL 25(OH) VITAMIN D 48.7 NG/ML (30.0-100.0)
[2019-05-27 13:23] LABS: HEMOGLOBIN A1c 7.7 %
== END ==
LOC: M SFHCPLAZ 10:00
PROVIDERS: ATTEND Nurse Practitioner Family
DX: K74.60 Unspecified cirrhosis of liver (principal); E11.65 Type 2 diabetes mellitus with hyperglycemia; E55.9 Vitamin D deficiency, unspecified

== ENCOUNTER → 2019-06-25 | Outpatient (CLI) | payer OTHER ==
[~2019-06-25] MED LIST changes: -BISO5TAB5 PO; +BISO5TAB9 PO
[2019-06-25 15:31] LABS: BASO % 0.7 % (0.0-1.0); EOS # 0.2 10^3/uL (0.0-0.5); EOS % 3.4 % (0.0-3.0); HEMOGLOBIN 13.8 g/dl (12.0-15.5); LYMPH # 1.5 10^3/uL (1.5-5.0); LYMPH % 26.4 % (24.0-44.0); MEAN CORPUSCULAR HEMOGLOBIN 27.8 pg (27.0-33.0); MEAN CORPUSCULAR HGB CONC 32.9 g/dl (32.0-36.5); MEAN CORPUSCULAR VOLUME 84.7 fl (80.0-96.0); MONO # 0.5 10^3/uL (0.0-0.8); MONO % 8.3 % (0.0-5.0); NEUTROPHILS # 3.4 10^3/uL (1.5-8.5); NEUTROPHILS % 60.8 % (36.0-66.0); PLATELET COUNT, AUTOMATED 142 10^3/uL (150-450); RED BLOOD COUNT 4.96 10^6/uL (4.00-5.40); WHITE BLOOD COUNT 5.7 10^3/uL (4.0-10.0)
[2019-06-25 15:42] LABS: INR 0.97; PROTHROMBIN TIME 12.6 SECONDS (11.8-14.0)
[2019-06-25 15:46] LABS: ALBUMIN 3.9 GM/DL (3.2-5.2); BILIRUBIN,DIRECT 0.2 MG/DL (0.0-0.2); BILIRUBIN,TOTAL 0.5 MG/DL (0.2-1.0); PERCENT SATURATION 11.2 % (13.2-45.0); TOTAL PROTEIN 7.9 GM/DL (6.4-8.2)
[2019-07-01 00:07] LABS: ANCA-ATYPICAL <1:20 titer (Neg:<1:20); ANTI DOUBLE STRAND-DNA AB 1 IU/mL (0-9); ANTI-MITOCHONDRIAL ANTIBODY <20.0 Units (0.0-20.0); ANTINUCLEAR ANTIBODIES DIRECT Positive (Negative); CYTOPLASMIC NEUTROP AB ANCA-C <1:20 titer (Neg:<1:20); LIVER-KIDNEY MICROSOMAL ABY <20.1 Units (0.0-20.0); PERINUCLEAR AB ANCA-P <1:20 titer (Neg:<1:20); RNP ANTIBODIES 2.4 AI (0.0-0.9); SJOGREN'S ANTI SS-A <0.2 AI (0.0-0.9); SJOGREN'S ANTI SS-B <0.2 AI (0.0-0.9); SMITH ANTIBODIES <0.2 AI (0.0-0.9)
== END ==
LOC: M LAB 14:30
PROVIDERS: ATTEND Internal Medicine Gastroenterology
DX: K70.30 Alcoholic cirrhosis of liver without ascites (principal)

== ENCOUNTER → 2019-07-30 | Outpatient (REF) | payer OTHER ==
[~2019-07-30] MED LIST changes: -GLIM2TAB PO; +GLIM2TAB2 PO
[2019-07-30 16:28] LABS: HEMOGLOBIN A1c 7.9 %
[2019-07-30 16:41] LABS: TOTAL 25(OH) VITAMIN D 34.6 NG/ML (30.0-100.0)
== END ==
LOC: M SFHCPLAZ 13:51
PROVIDERS: ATTEND Nurse Practitioner Family
DX: E11.65 Type 2 diabetes mellitus with hyperglycemia (principal); E55.9 Vitamin D deficiency, unspecified; D51.8 Other vitamin B12 deficiency anemias

== ENCOUNTER 2019-10-17 23:21 | Emergency (ER) | payer OTHER ==
[~2019-10-17] VITALS: Ht 160 cm; Wt 70.9 kg
[2019-10-17] MEDS ORDERED: METOCLOPRAMIDE INJ 10MG/2ML VIAL (J2765) IV ONE (23:45)
[2019-10-17] MEDS ORDERED: NS 1,000 ML IV ONE (23:45)
[2019-10-18 00:47] LABS: BASO % 0.3 % (0.0-1.0); EOS # 0.3 10^3/uL (0.0-0.5); EOS % 2.1 % (0.0-3.0); HEMATOCRIT 48.8 % (36.0-47.0); HEMOGLOBIN 15.2 g/dl (12.0-15.5); LYMPH # 0.9 10^3/uL (1.5-5.0); LYMPH % 7.3 % (24.0-44.0); MEAN CORPUSCULAR HEMOGLOBIN 26.8 pg (27.0-33.0); MEAN CORPUSCULAR HGB CONC 31.1 g/dl (32.0-36.5); MEAN CORPUSCULAR VOLUME 86.1 fl (80.0-96.0); MONO # 0.7 10^3/uL (0.0-0.8); MONO % 5.2 % (0.0-5.0); NEUTROPHILS # 10.7 10^3/uL (1.5-8.5); NEUTROPHILS % 84.7 % (36.0-66.0); PLATELET COUNT, AUTOMATED 117 10^3/uL (150-450); RED BLOOD COUNT 5.67 10^6/uL (4.00-5.40); WHITE BLOOD COUNT 12.6 10^3/uL (4.0-10.0)
[2019-10-18 01:08] LABS: ALBUMIN 4.2 GM/DL (3.2-5.2); ALT/SGPT 22 U/L (12-78); BILIRUBIN,DIRECT 0.3 MG/DL (0.0-0.2); BLOOD UREA NITROGEN 20 MG/DL (7-18); CALCIUM LEVEL 9.9 MG/DL (8.8-10.2); CARBON DIOXIDE LEVEL 20 MEQ/L (21-32); CHLORIDE LEVEL 105 MEQ/L (98-107); CREATININE FOR GFR 1.05 MG/DL (0.55-1.30); ETHYL ALCOHOL (ETHANOL) < 0.003 % (0.000-0.010); GLOMERULAR FILTRATION RATE 55.8 (>45); GLUCOSE, FASTING 194 MG/DL (70-100); LIPASE 461 U/L (73-393); SODIUM LEVEL 139 MEQ/L (136-145); TOTAL PROTEIN 8.6 GM/DL (6.4-8.2)
[2019-10-18] MEDS ORDERED: NS 1,000 ML IV ONE (01:15)
[2019-10-18 01:17] LABS: APPEARANCE, URINE CLEAR (CLEAR); BACTERIA, URINE AUTO NEGATIVE (NEGATIVE); BILIRUBIN, URINE AUTO NEGATIVE (NEGATIVE); BLOOD, URINE BLOOD 1+ (NEGATIVE); COLOR, URINE YELLOW (YELLOW); GLUCOSE, URINE (UA) AUTO 3+ mg/dL (NEGATIVE); KETONE, URINE AUTO 1+ mg/dL (NEGATIVE); LEUKOCYTE ESTERASE, URINE AUTO NEGATIVE (NEGATIVE); NITRITE, URINE AUTO NEGATIVE (NEGATIVE); PROTEIN, URINE AUTO 2+ mg/dL (NEGATIVE); RBC, URINE AUTO 2 /HPF (0-3); SPECIFIC GRAVITY URINE AUTO 1.026 (1.002-1.035); SQUAMOUS EPITHELIAL CELL UR AU 1 /HPF (0-6); UROBILINOGEN, URINE AUTO 0.2 mg/dL (0.0-2.0); WBC, URINE AUTO 1 /HPF (0-3)
[2019-10-18] MEDS ORDERED: REGL10TA6 PO (03:14)
[2019-10-18 03:15] VITALS: BP 186/88
== END 2019-10-18 03:32 | disposition home or self-care (01) ==
LOC: M ED 23:21
DX: K52.9 Noninfective gastroenteritis and colitis, unspecified (principal); Z20.89 Contact with and (suspected) exposure to other communicable diseases; E11.9 Type 2 diabetes mellitus without complications; I10 Essential (primary) hypertension; E78.5 Hyperlipidemia, unspecified; F10.20 Alcohol dependence, uncomplicated; Z79.82 Long term (current) use of aspirin; Z79.84 Long term (current) use of oral hypoglycemic drugs; Z79.899 Other long term (current) drug therapy
CPT/HCPCS: 80048; 80076; 81001; 83605; 83690; 85025; 87040; 87086; 96361; 96374; 99284; G0480; J2765

== ENCOUNTER → 2019-12-15 | Outpatient (CLI) | payer OTHER ==
[~2019-12-15] MED LIST changes: +BISO5TAB14 PO; -BISO5TAB9 PO; -GLIM2TAB2 PO; +GLIM2TAB4 PO; +REGL10TA6 PO
[2019-12-15 07:57] LABS: ALBUMIN 4.1 GM/DL (3.2-5.2); ALT/SGPT 29 U/L (12-78); BILIRUBIN,TOTAL 0.6 MG/DL (0.2-1.0); BLOOD UREA NITROGEN 18 MG/DL (7-18); CALCIUM LEVEL 9.7 MG/DL (8.8-10.2); CARBON DIOXIDE LEVEL 23 MEQ/L (21-32); CHLORIDE LEVEL 109 MEQ/L (98-107); CHOLESTEROL LEVEL 225 MG/DL (<200); CHOLESTEROL RISK RATIO 6.617 (<5); CREATININE FOR GFR 0.97 MG/DL (0.55-1.30); FREE T4 0.93 NG/DL (0.76-1.46); GLOMERULAR FILTRATION RATE > 60.0 (>45); GLUCOSE, FASTING 142 MG/DL (70-100); HDL CHOLESTEROL 34 MG/DL (>40); LDL CHOLESTEROL 143 MG/DL (<100); NON-HDL-C 191 MG/DL; POTASSIUM SERUM 3.9 MEQ/L (3.5-5.1); SODIUM LEVEL 141 MEQ/L (136-145); TRIGLYCERIDES LEVEL 238 MG/DL (<150)
[2019-12-15 07:59] LABS: MALB URINE SIEMENS 81.6 MG/L; MAU/CREAT RATIO 61.8 MCG/MG (0.0-30.0)
[2019-12-15 08:02] LABS: HEMOGLOBIN A1c 7.7 %
--- NOTE | 2019-12-15 09:14 | REP ---
Right quadrant sonography: History: Cirrhosis. Evaluate liver. Comparison CT study is from June 03, 2019. Findings: Scanning through right upper quadrant of the abdomen demonstrates a normal sized thin-walled gallbladder without evidence of stone or polyp. Common bile duct is normal measuring 0.4 cm in greatest diameter. No focal liver lesion is seen. The liver is not enlarged. Mildly coarse hepatic texture is observed. The umbilical vein is observed to be patent consistent with recanalization. Portal vein does not appear dilated. There is no evidence of ascites. No right renal abnormality is noted. The right kidney measures 12.5 x 4.5 x 4.8 cm. No pancreatic abnormalities observed. Impression: Mildly coarse liver texture. Recanalized umbilical vein. Otherwise negative right upper quadrant sonography. Electronically Signed by Ankur Ugarte MD 12/15/2019 09:36 A
[2019-12-15 09:31] LABS: TOTAL 25(OH) VITAMIN D 36.1 NG/ML (30.0-100.0); VITAMIN B12 LEVEL 308 PG/ML
[2019-12-15 09:32] LABS: FOLATE 15.8 NG/ML
== END ==
LOC: M RAD 06:15
PROVIDERS: ATTEND Nurse Practitioner Family
DX: K74.60 Unspecified cirrhosis of liver (principal)

== ENCOUNTER → 2020-04-15 | Outpatient (REF) | payer MEDICARE, OTHER ==
[~2020-04-15] MED LIST changes: -ASPI81TA85 PO; +ASPI81TA86 PO; +CALC600T63 PO; -CALCTAB6 PO
[2020-04-15 15:39] LABS: ALBUMIN 4.4 GM/DL (3.2-5.2); BILIRUBIN,TOTAL 0.6 MG/DL (0.2-1.0); CALCIUM LEVEL 10.4 MG/DL (8.8-10.2); CHOLESTEROL RISK RATIO 6.307 (<5); CREATININE FOR GFR 1.11 MG/DL (0.55-1.30); GLOMERULAR FILTRATION RATE 52.4 (>45); POTASSIUM SERUM 4.9 MEQ/L (3.5-5.1); TOTAL PROTEIN 8.7 GM/DL (6.4-8.2)
[2020-04-15 15:58] LABS: HEMOGLOBIN A1c 7.7 %
== END ==
LOC: M PLALAB 12:45
PROVIDERS: ATTEND Nurse Practitioner Family
DX: E11.65 Type 2 diabetes mellitus with hyperglycemia (principal); E78.5 Hyperlipidemia, unspecified

== ENCOUNTER → 2020-05-25 | Outpatient (CLI) | payer MEDICARE, OTHER ==
--- NOTE | 2020-06-10 16:50 | REPMRS ---
Patient History The patient states she had a clinical breast exam in 05/2020. Patient is postmenopausal. No known family history of cancer. No Hormone Replacement Therapy Digital Woman Screen Mammo: May 25, 2020 - Exam #: [id number] Bilateral CC and MLO view(s) were taken. Technologist: Kelly Valentin, Technologist Prior study comparison: December 03, 2018, bilateral digital woman screen mammo performed at [facility]. October 25, 2017, digital woman screen mammo performed at [facility]. August 29, 2016, digital woman screen mammo performed at [facility]. FINDINGS: There are scattered fibroglandular densities. The Volpara volumetric breast density category is:B. There has been no change in the appearance of the mammogram from the prior studies. There is a mild amount of scattered fibroglandular density which is fairly symmetric. There is no interval development of dominant mass, architectural distortion, or grouped microcalcification suggestive of malignancy. 3-D tomosynthesis shows no additional findings. Assessment: BI-RADS/ACR category 1 mammogram. Negative Mammogram. Recommendation Routine screening mammogram of both breasts in 1 year (for women over age 40). This patient's Lifetime Breast Cancer Risk is estimated at 5.2 %. This mammogram was interpreted with the aid of an FDA-approved computer-aided dectection system. Electronically Signed By: Kofi Ugarte MD 06/10/20 [id number]
== END ==
LOC: M WHC 10:24
PROVIDERS: ATTEND Nurse Practitioner Family
DX: Z12.31 Encounter for screening mammogram for malignant neoplasm of breast (principal); Z78.0 Asymptomatic menopausal state
CPT/HCPCS: 77063; 77067; 87661; G0463

== ENCOUNTER → 2020-05-25 | Outpatient (REF) | payer MEDICARE, OTHER ==
[2020-07-04 13:40] LABS: CHLAMYDIA DNA AMPLIFICATION NEGATIVE (NEGATIVE); GC DNA AMPLIFICATION NEGATIVE (NEGATIVE)
== END ==
LOC: M SFHCWAGY 12:09
PROVIDERS: ATTEND Nurse Practitioner Family
DX: Z11.3 Encounter for screening for infections with a predominantly sexual mode of transmission (principal)

== ENCOUNTER → 2020-06-01 | Emergency (ER) | payer MEDICARE, OTHER ==
[~2020-06-01] MED LIST changes: +GI COCKTAIL 50ML BTL(HYOSCYAMINE/MAALOX/LIDOCAINE VISCOUS)(1:3:1) As Ordered ONE; +ISOVUE-370 76% 100ML VIAL As Ordered ONE; +MORPHINE 4 MG/ML 1ML VIAL/SYRINGE (J2270) As Ordered ONE; +ONDANSETRON 4MG/2ML VIAL As Ordered ONE
[2020-06-05 20:44] LABS: ALT/SGPT 33 U/L (12-78); BILIRUBIN,DIRECT < 0.1 MG/DL (0.0-0.2); BILIRUBIN,TOTAL 0.6 MG/DL (0.2-1.0); BLOOD UREA NITROGEN 16 MG/DL (7-18); CALCIUM LEVEL 10.1 MG/DL (8.8-10.2); CARBON DIOXIDE LEVEL 22 MEQ/L (21-32); CHLORIDE LEVEL 107 MEQ/L (98-107); CREATININE FOR GFR 1.05 MG/DL (0.55-1.30); GLOMERULAR FILTRATION RATE 55.8 (>45); GLUCOSE, FASTING 257 MG/DL (70-100); LIPASE 298 U/L (73-393); POTASSIUM SERUM 4.7 MEQ/L (3.5-5.1); SODIUM LEVEL 137 MEQ/L (136-145)
[2020-07-12 08:24] LABS: BASO % 0.7 % (0.0-1.0); EOS # 0.1 10^3/uL (0.0-0.5); EOS % 3.3 % (0.0-3.0); HEMATOCRIT 43.6 % (36.0-47.0); HEMOGLOBIN 14.2 g/dl (12.0-15.5); LYMPH % 23.4 % (24.0-44.0); MEAN CORPUSCULAR HEMOGLOBIN 28.5 pg (27.0-33.0); MEAN CORPUSCULAR HGB CONC 32.6 g/dl (32.0-36.5); MEAN CORPUSCULAR VOLUME 87.4 fl (80.0-96.0); MONO # 0.4 10^3/uL (0.0-0.8); MONO % 8.6 % (0.0-5.0); NEUTROPHILS # 2.7 10^3/uL (1.5-8.5); NEUTROPHILS % 63.8 % (36.0-66.0); PLATELET COUNT, AUTOMATED 122 10^3/uL (150-450); RED BLOOD COUNT 4.99 10^6/uL (4.00-5.40); WHITE BLOOD COUNT 4.2 10^3/uL (4.0-10.0)
[2020-07-12 09:28] LABS: APPEARANCE, URINE CLEAR (CLEAR); BACTERIA, URINE AUTO NEGATIVE (NEGATIVE); BILIRUBIN, URINE AUTO NEGATIVE (NEGATIVE); BLOOD, URINE BLOOD NEGATIVE (NEGATIVE); COLOR, URINE YELLOW (YELLOW); GLUCOSE, URINE (UA) AUTO 3+ mg/dL (NEGATIVE); KETONE, URINE AUTO NEGATIVE (NEGATIVE); LEUKOCYTE ESTERASE, URINE AUTO 1+ (NEGATIVE); NITRITE, URINE AUTO NEGATIVE (NEGATIVE); PROTEIN, URINE AUTO NEGATIVE (NEGATIVE); RBC, URINE AUTO 2 /HPF (0-3); SQUAMOUS EPITHELIAL CELL UR AU 2 /HPF (0-6); UROBILINOGEN, URINE AUTO 0.2 mg/dL (0.0-2.0); WBC, URINE AUTO 4 /HPF (0-3)
== END | disposition home or self-care (01) ==
LOC: M ED 09:04
DX: K29.70 Gastritis, unspecified, without bleeding (principal); K59.00 Constipation, unspecified; K74.60 Unspecified cirrhosis of liver; M85.40 Solitary bone cyst, unspecified site; E11.9 Type 2 diabetes mellitus without complications; I10 Essential (primary) hypertension; E78.5 Hyperlipidemia, unspecified; R16.1 Splenomegaly, not elsewhere classified; N85.2 Hypertrophy of uterus; Z96.643 Presence of artificial hip joint, bilateral; Z79.84 Long term (current) use of oral hypoglycemic drugs; Z79.899 Other long term (current) drug therapy
CPT/HCPCS: 74177; 76705; 80048; 80076; 81001; 83690; 85025; 96361; 96374; 96375; 99284; J2270; J2405; Q9967

== ENCOUNTER → 2021-01-02 | Outpatient (CLI) | payer MEDICARE, OTHER ==
[~2021-01-02] MED LIST changes: +ASPI-569 PO; -ASPI81TAEC PO; -DICY20TA PO; +DICY20TA3 PO; -GI COCKTAIL 50ML BTL(HYOSCYAMINE/MAALOX/LIDOCAINE VISCOUS)(1:3:1) As Ordered ONE; +GLYX1TAB PO; -ISOVUE-370 76% 100ML VIAL As Ordered ONE; -LISI-538 PO; +LISI20TA33 PO; +MAPA500C PO; -MORPHINE 4 MG/ML 1ML VIAL/SYRINGE (J2270) As Ordered ONE; -ONDANSETRON 4MG/2ML VIAL As Ordered ONE; +PANT40TA29 PO
== END ==
LOC: M LABSMTC 09:15
PROVIDERS: ATTEND Anesthesiology
DX: Z01.812 Encounter for preprocedural laboratory examination (principal); Z20.822 Contact with and (suspected) exposure to COVID-19

== ENCOUNTER → 2021-01-04 | Outpatient (REF) | payer MEDICARE, OTHER ==
[2021-01-04 11:05] LABS: HEMOGLOBIN A1c 9.1 %
[2021-01-04 11:15] LABS: ALT/SGPT 43 U/L (12-78); BLOOD UREA NITROGEN 24 MG/DL (7-18); CALCIUM LEVEL 9.9 MG/DL (8.8-10.2); CARBON DIOXIDE LEVEL 25 MEQ/L (21-32); CHLORIDE LEVEL 106 MEQ/L (98-107); CHOLESTEROL LEVEL 277 MG/DL (<200); CHOLESTEROL RISK RATIO 6.756 (<5); GLOMERULAR FILTRATION RATE 58.9 (>45); GLUCOSE, FASTING 207 MG/DL (70-100); HDL CHOLESTEROL 41 MG/DL (>40); LDL CHOLESTEROL 167 MG/DL (<100); NON-HDL-C 236 MG/DL; POTASSIUM SERUM 4.7 MEQ/L (3.5-5.1); SODIUM LEVEL 139 MEQ/L (136-145); TOTAL PROTEIN 8.2 GM/DL (6.4-8.2); TRIGLYCERIDES LEVEL 346 MG/DL (<150)
[2021-01-04 11:18] LABS: TOTAL 25(OH) VITAMIN D 27.3 NG/ML (30.0-100.0); VITAMIN B12 LEVEL 325 PG/ML
[2021-01-04 11:19] LABS: FOLATE > 24.0 NG/ML
[2021-01-04 11:21] LABS: CREATININE, URINE 50.8 MG/DL; MALB URINE SIEMENS 64.6 MG/L; MAU/CREAT RATIO 127.1 MCG/MG (0.0-30.0)
== END ==
LOC: M PLALAB 08:25
PROVIDERS: ATTEND Nurse Practitioner Family
DX: K74.60 Unspecified cirrhosis of liver (principal); E11.65 Type 2 diabetes mellitus with hyperglycemia; E78.5 Hyperlipidemia, unspecified; E55.9 Vitamin D deficiency, unspecified; D51.8 Other vitamin B12 deficiency anemias

== ENCOUNTER → 2021-01-04 | Outpatient (CLI) | payer MEDICARE, OTHER ==
--- NOTE | 2021-01-04 09:15 | REP ---
INDICATION: K74.60 CIRRHOSIS OF LIVER. COMPARISON: Ultrasound and CT 06/01/2020. TECHNIQUE: Real-time sonographic evaluation of right upper quadrant performed. FINDINGS: The gallbladder demonstrates no evidence of intraluminal sludge or calculi, wall thickening or pericholecystic fluid. There is no intrahepatic or extrahepatic biliary dilatation, common bile duct measures 2 mm in maximum diameter. Liver demonstrates heterogeneous echotexture. There is an ill-defined hypoechoic nodule in the left lobe 1.0 x 0.7 x 1.2 cm. The pancreas demonstrates homogeneous echotexture with no gross mass. The right kidney demonstrates no hydronephrosis, with a normal size of 12.9 cm in length. No free fluid is seen. IMPRESSION: Heterogeneous echotexture of the liver. Focal ill-defined hypoechoic nodular area in the left lobe of the liver has a maximum diameter of 1.2 cm. Recommend further evaluation with dynamic MRI or CT of the liver with and without contrast. <Electronically signed by Arnie Jerome > 01/04/21 0911
== END ==
LOC: M WHC 07:41
PROVIDERS: ATTEND Nurse Practitioner Family
DX: K74.60 Unspecified cirrhosis of liver (principal)

== ENCOUNTER 2021-01-07 06:51 | Day surgery (SDC) | payer MEDICARE, OTHER ==
[~2021-01-07] VITALS: Ht 160 cm; Wt 71.7 kg
[~2021-01-07 06:51] MED LIST changes: +NS 1,000 ML IV ONE
[2021-01-07] MEDS ORDERED: propofoL 200 MG/20 ML VIAL As Ordered ONE ×2 (07:05→07:06)
[2021-01-07] MEDS ORDERED: LIDOCAINE 2% 100MG/5ML SDV (FOR ANES.) As Ordered ONE (07:05)
--- NOTE | 2021-01-07 08:33 | ROOR ---
Patient Name: Rupa Infante Procedure Date: 01/07/2021 8:14 AM Date of : 1955 Age: 65 Room: [facility] Gender: Female Note Status: Finalized Procedure: Upper GI endoscopy Indications: Abnormal CT of the GI tract Providers: Gavino GAYTAN MD Referring MD: Rekha Josue NP Requesting Provider: Medicines: Monitored Anesthesia Care Complications: No immediate complications. Procedure: Pre-Anesthesia Assessment: - The heart rate, respiratory rate, oxygen saturations, blood pressure, adequacy of pulmonary ventilation, and response to care were monitored throughout the procedure. The Endoscope was introduced through the mouth, and advanced to the second part of duodenum. The upper GI endoscopy was accomplished without difficulty. The patient tolerated the procedure well. Findings: Minimal inflammation characterized by erythema was found in the gastric antrum. Biopsies were taken with a cold forceps for histology. The examined esophagus was normal. (No varices seen) The examined duodenum was normal. Impression: - Minimal gastritis. Biopsied. - Normal esophagus. - Normal examined duodenum. Recommendation: - Observe patient's clinical course. Procedure Code(s): --- Professional --- 27352, Esophagogastroduodenoscopy, flexible, transoral; with biopsy, single or multiple Diagnosis Code(s): --- Professional --- R93.3, Abnormal findings on diagnostic imaging of other parts of digestive tract K29.70, Gastritis, unspecified, without bleeding CPT copyright 2019 [employer]. All rights reserved. The codes documented in this report are preliminary and upon v belt builder review may be revised to meet current compliance requirements. Gavino Gaytan MD Gavino GAYTAN MD 01/07/2021 8:32:27 AM Electronically signed by Gavino GAYTAN MD Number of Addenda: 0 Note Initiated On: 01/07/2021 8:14 AM Estimated Blood Loss: Estimated blood loss: none.
--- NOTE | 2021-01-07 08:53 | ROOR ---
Patient Name: Rupa Infante Procedure Date: 01/07/2021 8:16 AM Date of : 1955 Age: 65 Room: [facility] Gender: Female Note Status: Finalized Procedure: Colonoscopy Indications: Generalized abdominal pain, Abnormal CT of the GI tract Providers: Gavino GAYTAN MD Referring MD: Rekha Josue NP Requesting Provider: Medicines: Monitored Anesthesia Care Complications: No immediate complications. Procedure: Pre-Anesthesia Assessment: - The heart rate, respiratory rate, oxygen saturations, blood pressure, adequacy of pulmonary ventilation, and response to care were monitored throughout the procedure. The Colonoscope was introduced through the anus and advanced to the terminal ileum, with identification of the appendiceal orifice and IC valve. The colonoscopy was performed without difficulty. The patient tolerated the procedure well. The quality of the bowel preparation was good. Findings: The perianal and digital rectal examinations were normal. A few medium-mouthed diverticula were found in the sigmoid colon. Non-bleeding internal hemorrhoids were found during retroflexion. The hemorrhoids were moderate. The exam was otherwise without abnormality on direct and retroflexion views. Impression: - Mild diverticulosis in the sigmoid colon. - Non-bleeding internal hemorrhoids. - The examination was otherwise normal on direct and retroflexion views. - No specimens collected. Recommendation: - Use Lactulose at 1 tbsp PO BID. (fecal impaction/constipation) - Use Lactulose at 2 tbsp PO BID. (fecal impaction/constipation) Procedure Code(s): --- Professional --- 91679, Colonoscopy, flexible; diagnostic, including collection of specimen(s) by brushing or washing, when performed (separate procedure) Diagnosis Code(s): --- Professional --- R93.3, Abnormal findings on diagnostic imaging of other parts of digestive tract K57.30, Diverticulosis of large intestine without perforation or abscess without bleeding R10.84, Generalized abdominal pain K64.8, Other hemorrhoids CPT copyright 2019 [employer] [place] [employer]. All rights reserved. The codes documented in this report are preliminary and upon event marketing coordinator review may be revised to meet current compliance requirements. Gavino Gaytan MD Gavino GAYTAN MD 01/07/2021 8:52:53 AM Electronically signed by Gavino GAYTAN MD Number of Addenda: 0 Note Initiated On: 01/07/2021 8:16 AM Estimated Blood Loss: Estimated blood loss: none.
[2021-01-07 09:19] VITALS: BP 179/75
== END 2021-01-07 11:15 | disposition home or self-care (01) ==
LOC: M OPP 06:51
PROVIDERS: ATTEND Internal Medicine Gastroenterology
DX: K57.30 Diverticulosis of large intestine without perforation or abscess without bleeding (principal); K64.8 Other hemorrhoids; R10.84 Generalized abdominal pain; R93.3 Abnormal findings on diagnostic imaging of other parts of digestive tract; K29.70 Gastritis, unspecified, without bleeding; E11.9 Type 2 diabetes mellitus without complications; I10 Essential (primary) hypertension; Z79.82 Long term (current) use of aspirin; Z79.84 Long term (current) use of oral hypoglycemic drugs; Z79.899 Other long term (current) drug therapy

== ENCOUNTER 2021-03-11 23:36 | Emergency (ER) | payer MEDICARE, OTHER ==
[~2021-03-11] VITALS: Ht 160 cm; Wt 70.9 kg
[~2021-03-11 23:36] MED LIST changes: -NS 1,000 ML IV ONE
[2021-03-11] MEDS ORDERED: VITA200016 PO (23:51)
[2021-03-12 01:45] VITALS: BP 115/59
== END 2021-03-12 01:59 | disposition home or self-care (01) ==
LOC: M ED 23:36
DX: F45.8 Other somatoform disorders (principal); F10.10 Alcohol abuse, uncomplicated; Z79.82 Long term (current) use of aspirin; Z79.899 Other long term (current) drug therapy; Z79.84 Long term (current) use of oral hypoglycemic drugs

== ENCOUNTER 2021-05-03 22:49 | Emergency (ER) | payer MEDICARE, OTHER ==
[~2021-05-03] VITALS: Ht 160 cm; Wt 70.9 kg
[~2021-05-03 22:49] MED LIST changes: +VITA200016 PO
[2021-05-04 05:54] VITALS: BP 172/76
== END 2021-05-04 06:44 | disposition home or self-care (01) ==
LOC: M ED 22:49
DX: F10.120 Alcohol abuse with intoxication, uncomplicated (principal); E11.9 Type 2 diabetes mellitus without complications; Z79.899 Other long term (current) drug therapy

== ENCOUNTER → 2021-06-01 | Outpatient (CLI) | payer MEDICARE, OTHER ==
[2021-06-01 10:45] LABS: HEMATOCRIT 40.8 % (36.0-47.0); HEMOGLOBIN 13.6 g/dl (12.0-15.5); MEAN CORPUSCULAR HEMOGLOBIN 29.9 pg (27.0-33.0); MEAN CORPUSCULAR HGB CONC 33.3 g/dl (32.0-36.5); MEAN CORPUSCULAR VOLUME 89.7 fl (80.0-96.0); RED BLOOD COUNT 4.55 10^6/uL (4.00-5.40); WHITE BLOOD COUNT 4.5 10^3/uL (4.0-10.0)
[2021-06-01 11:05] LABS: PLATELET COUNT, AUTOMATED 95 10^3/uL (150-450)
[2021-06-01 11:17] LABS: ALBUMIN 3.9 GM/DL (3.2-5.2); ALT/SGPT 42 U/L (12-78); BILIRUBIN,TOTAL 0.6 MG/DL (0.2-1.0); BLOOD UREA NITROGEN 15 MG/DL (7-18); CALCIUM LEVEL 9.5 MG/DL (8.8-10.2); CARBON DIOXIDE LEVEL 24 MEQ/L (21-32); CHLORIDE LEVEL 109 MEQ/L (98-107); CHOLESTEROL LEVEL 171 MG/DL (<200); CHOLESTEROL RISK RATIO 4.384 (<5); CREATININE FOR GFR 0.94 MG/DL (0.55-1.30); GLOMERULAR FILTRATION RATE > 60.0 (>45); GLUCOSE, FASTING 140 MG/DL (70-100); HDL CHOLESTEROL 39 MG/DL (>40); LDL CHOLESTEROL 79 MG/DL (<100); NON-HDL-C 132 MG/DL; POTASSIUM SERUM 4.3 MEQ/L (3.5-5.1); SODIUM LEVEL 140 MEQ/L (136-145); TOTAL PROTEIN 7.4 GM/DL (6.4-8.2); TRIGLYCERIDES LEVEL 266 MG/DL (<150)
[2021-06-01 11:24] LABS: VITAMIN B12 LEVEL 303 PG/ML
[2021-06-01 11:25] LABS: FOLATE 18.5 NG/ML
[2021-06-01 11:49] LABS: HEMOGLOBIN A1c 8.6 %
== END ==
LOC: M PLALAB 08:09
PROVIDERS: ATTEND Nurse Practitioner Family
DX: D51.8 Other vitamin B12 deficiency anemias (principal); E55.9 Vitamin D deficiency, unspecified; E11.65 Type 2 diabetes mellitus with hyperglycemia; Z79.899 Other long term (current) drug therapy

== ENCOUNTER 2021-06-22 17:12 | Emergency (ER) | payer MEDICARE, OTHER ==
[~2021-06-22] VITALS: Ht 160 cm; Wt 70.4 kg
[2021-06-22 17:12] VITALS: BP 218/97
[2021-06-22] MEDS ORDERED: ONDANSETRON 4MG/2ML VIAL IV ONE (22:25)
[2021-06-22] MEDS ORDERED: DICYCLOMINE 10 MG CAP PO ONE (22:25)
[2021-06-22] MEDS ORDERED: NS 1,000 ML IV ONE (22:25)
[2021-06-23 00:24] LABS: BASO % 0.6 % (0.0-1.0); EOS # 0.3 10^3/uL (0.0-0.5); EOS % 3.9 % (0.0-3.0); LYMPH # 1.4 10^3/uL (1.5-5.0); LYMPH % 21.6 % (24.0-44.0); MEAN CORPUSCULAR HEMOGLOBIN 29.7 pg (27.0-33.0); MEAN CORPUSCULAR HGB CONC 33.3 g/dl (32.0-36.5); MEAN CORPUSCULAR VOLUME 89.1 fl (80.0-96.0); MONO # 0.5 10^3/uL (0.0-0.8); MONO % 7.6 % (2.0-8.0); NEUTROPHILS # 4.2 10^3/uL (1.5-8.5); NEUTROPHILS % 65.8 % (36.0-66.0); PLATELET COUNT, AUTOMATED 121 10^3/uL (150-450); RED BLOOD COUNT 5.05 10^6/uL (4.00-5.40); WHITE BLOOD COUNT 6.3 10^3/uL (4.0-10.0)
[2021-06-23] MEDS ORDERED: ISOVUE-370 76% 100ML VIAL As Ordered ONE (00:27)
[2021-06-23 00:55] LABS: ALBUMIN 3.8 GM/DL (3.2-5.2); BILIRUBIN,DIRECT 0.2 MG/DL (0.0-0.2); BILIRUBIN,TOTAL 0.7 MG/DL (0.2-1.0); TOTAL PROTEIN 7.7 GM/DL (6.4-8.2)
--- NOTE | 2021-06-23 02:07 | REPVR ---
PROCEDURE INFORMATION: Exam: CT Abdomen And Pelvis With Contrast Exam date and time: 06/23/2021 12:23 AM Age: 65 years old Clinical indication: Other: Diarrhea; Additional info: Lower abd pain, diarrhea TECHNIQUE: Imaging protocol: Computed tomography of the abdomen and pelvis with contrast. Radiation optimization: All CT scans at this facility use at least one of these dose optimization techniques: automated exposure control; mA and/or kV adjustment per patient size (includes targeted exams where dose is matched to clinical indication); or iterative reconstruction. Contrast material: ISO; Contrast volume: 100 ml; Contrast route: INTRAVENOUS (IV); COMPARISON: 1. CT ABD PELVIS WITH CONTRAST 2020-06-01 12:[address] ABD PELVIS W/O CONTRAST 2019-05-17 21:27 FINDINGS: Mediastinal space: Small paraesophageal varices. Moderate gastro-esophageal thickening. Question distal esophagitis. Liver: Lobulated liver contour with caudate lobe hypertrophy, evidence for cirrhosis. Gallbladder and bile ducts: Normal. No calcified stones. No ductal dilation. Pancreas: Normal. No ductal dilation. Spleen: Splenomegaly. Adrenal glands: Normal. No mass. Kidneys and ureters: Moderate left renal atrophy. Stomach and bowel: Moderate gastric wall thickening with possible ulcerations. Numerous small focal areas of hyperenhancement within the jejunal bowel with associated mild bowel wall thickening, suspect related to portal hypertension with varices and or tiny arteriovenous malformations. Appendix: No evidence of appendicitis. Intraperitoneal space: Unremarkable. No free air. No significant fluid collection. Vasculature: Engorged portal vein. Evidence for portal hypertension. 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 Lymph nodes: Unremarkable. No enlarged lymph nodes. Urinary bladder: Unremarkable as visualized. Reproductive: Unremarkable as visualized. Bones/joints: Bilateral hip arthroplasty hardware intact. Mild moderate lumbar spondylosis. L3-L4 disc bulge. L4-L5 disc bulge and left central cranial migrating disc extrusion with moderate facet arthropathy and ligamentum flavum thickening causing moderate spinal stenosis. Lytic lesion within the left acetabulum with complete loss of the lateral cortex measures approximately 4.2 x 4.6 cm and appears to have slowly enlarged over several years. Soft tissues: Unremarkable. IMPRESSION: 1. Lobulated liver contour with caudate lobe hypertrophy, evidence for cirrhosis. 2. Small paraesophageal varices. Recanalized umbilical vein. Splenomegaly. Engorged portal vein. Evidence for portal hypertension. 3. 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 4. Lytic lesion within the left acetabulum with complete loss of the lateral cortex measures approximately 4.2 x 4.6 cm and appears to have slowly enlarged over several years. 6. Moderate gastric wall thickening with possible ulcerations, correlate for gastritis or mass. 7. Numerous small focal areas of hyperenhancement within the jejunal bowel with associated mild bowel wall thickening, suspect related to portal hypertension with varices and or tiny arteriovenous malformations. 8. Gastro-esophageal thickening. Electronically signed by: Gavino Lindo On 06/23/2021 02:07:21 AM
[2021-06-23] MEDS ORDERED: CIPR-249 PO (02:34)
[2021-06-23] MEDS ORDERED: CIPROFLOXACIN 500MG TABLET PO ONE (02:35)
[2021-06-23] MEDS ORDERED: PILL CUTTER 1 EACH XX ONE (02:44)
== END 2021-06-23 02:58 | disposition home or self-care (01) ==
LOC: M ED 17:13
DX: R10.9 Unspecified abdominal pain (principal); R19.7 Diarrhea, unspecified; R93.5 Abnormal findings on diagnostic imaging of other abdominal regions, including retroperitoneum; R16.1 Splenomegaly, not elsewhere classified; I70.8 Atherosclerosis of other arteries; M43.06 Spondylolysis, lumbar region; M51.26 Other intervertebral disc displacement, lumbar region; M48.061 Spinal stenosis, lumbar region without neurogenic claudication; E11.9 Type 2 diabetes mellitus without complications; I10 Essential (primary) hypertension; E78.5 Hyperlipidemia, unspecified; Z79.82 Long term (current) use of aspirin; Z79.899 Other long term (current) drug therapy
CPT/HCPCS: 74177; 80047; 80076; 81001; 83690; 85025; 96360; 96361; 99283; J2405; Q9967

== ENCOUNTER 2021-09-24 00:58 | Emergency (ER) | payer MEDICARE, OTHER ==
[~2021-09-24] VITALS: Ht 160 cm; Wt 70.5 kg
[~2021-09-24 00:58] MED LIST changes: +CIPR-249 PO
[2021-09-24 01:47] LABS: BASO % 0.7 % (0.0-1.0); EOS # 0.2 10^3/uL (0.0-0.5); EOS % 3.9 % (0.0-3.0); HEMATOCRIT 40.6 % (36.0-47.0); HEMOGLOBIN 13.9 g/dl (12.0-15.5); LYMPH # 1.4 10^3/uL (1.5-5.0); LYMPH % 26.1 % (24.0-44.0); MEAN CORPUSCULAR HEMOGLOBIN 29.8 pg (27.0-33.0); MEAN CORPUSCULAR HGB CONC 34.2 g/dl (32.0-36.5); MEAN CORPUSCULAR VOLUME 86.9 fl (80.0-96.0); MONO # 0.5 10^3/uL (0.0-0.8); MONO % 8.5 % (2.0-8.0); NEUTROPHILS # 3.3 10^3/uL (1.5-8.5); NEUTROPHILS % 60.4 % (36.0-66.0); PLATELET COUNT, AUTOMATED 105 10^3/uL (150-450); RED BLOOD COUNT 4.67 10^6/uL (4.00-5.40); WHITE BLOOD COUNT 5.4 10^3/uL (4.0-10.0)
[2021-09-24 01:56] LABS: INR 0.96; PROTHROMBIN TIME 13.2 SECONDS (12.7-14.5)
[2021-09-24 02:10] LABS: CK-MB VALUE MASS 1.8 NG/ML (<3.6); MB/CK RELATIVE INDEX 2.4 (< OR =4)
[2021-09-24 02:31] LABS: BLOOD UREA NITROGEN 24 MG/DL (7-18); CALCIUM LEVEL 10.1 MG/DL (8.8-10.2); CARBON DIOXIDE LEVEL 21 MEQ/L (21-32); CHLORIDE LEVEL 107 MEQ/L (98-107); CREATININE FOR GFR 0.95 MG/DL (0.55-1.30); ETHYL ALCOHOL (ETHANOL) < 0.003 % (0.000-0.010); GLOMERULAR FILTRATION RATE > 60.0 (>45); GLUCOSE, FASTING 239 MG/DL (70-100); POTASSIUM SERUM 3.8 MEQ/L (3.5-5.1); SODIUM LEVEL 138 MEQ/L (136-145)
[2021-09-24 02:32] VITALS: BP 183/84
== END 2021-09-24 04:00 | disposition home or self-care (01) ==
LOC: EDBD 00:58 → M ED 00:58
DX: R07.89 Other chest pain (principal); I44.0 Atrioventricular block, first degree; E11.9 Type 2 diabetes mellitus without complications; I10 Essential (primary) hypertension; E78.5 Hyperlipidemia, unspecified; K21.9 Gastro-esophageal reflux disease without esophagitis; Z79.82 Long term (current) use of aspirin; Z79.899 Other long term (current) drug therapy

== ENCOUNTER 2021-12-18 15:11 | Emergency (ER) | payer MEDICARE, OTHER ==
[~2021-12-18] VITALS: Ht 160 cm; Wt 71.6 kg
[2021-12-18 18:22] VITALS: BP 148/78
== END 2021-12-18 18:36 | disposition home or self-care (01) ==
LOC: M ED 15:11
DX: J02.9 Acute pharyngitis, unspecified (principal); I10 Essential (primary) hypertension; E78.5 Hyperlipidemia, unspecified; E11.9 Type 2 diabetes mellitus without complications; Z79.4 Long term (current) use of insulin; Z87.442 Personal history of urinary calculi; Z87.891 Personal history of nicotine dependence; Z11.52 Encounter for screening for COVID-19; Z79.899 Other long term (current) drug therapy
CPT/HCPCS: 87880; 99283; U0003

== ENCOUNTER → 2022-01-10 | Outpatient (CLI) | payer MEDICARE, OTHER | LOC: M RAD 08:52 | PROVIDERS: ATTEND Nurse Practitioner Adult Health | DX: K74.60 Unspecified cirrhosis of liver (principal) ==

== ENCOUNTER 2022-04-05 10:48 | Day surgery (SDC) | payer MEDICARE, OTHER ==
[~2022-04-05] VITALS: Ht 160 cm; Wt 70.9 kg
[2022-04-05] MEDS ORDERED: ONDANSETRON 4MG ORAL DISINTEGRATING TAB PO ONE (11:30)
[2022-04-05 12:39] LABS: BASO % 0.7 % (0.0-1.0); EOS # 0.1 10^3/uL (0.0-0.5); HEMATOCRIT 47.6 % (36.0-47.0); HEMOGLOBIN 15.6 g/dl (12.0-15.5); LYMPH # 0.9 10^3/uL (1.5-5.0); LYMPH % 16.5 % (24.0-44.0); MEAN CORPUSCULAR HEMOGLOBIN 29.7 pg (27.0-33.0); MEAN CORPUSCULAR HGB CONC 32.8 g/dl (32.0-36.5); MEAN CORPUSCULAR VOLUME 90.5 fl (80.0-96.0); MONO # 0.4 10^3/uL (0.0-0.8); MONO % 8.1 % (2.0-8.0); NEUTROPHILS % 72.3 % (36.0-66.0); PLATELET COUNT, AUTOMATED 126 10^3/uL (150-450); RED BLOOD COUNT 5.26 10^6/uL (4.00-5.40); WHITE BLOOD COUNT 5.5 10^3/uL (4.0-10.0)
[2022-04-05 13:15] LABS: RSV AMPLIFICATION NEGATIVE (NEGATIVE)
[2022-04-05 13:28] LABS: CALCIUM LEVEL 10.7 MG/DL (8.8-10.2); CREATININE FOR GFR 1.25 MG/DL (0.55-1.30); GLOMERULAR FILTRATION RATE 45.4 (>45); POTASSIUM SERUM 4.1 MEQ/L (3.5-5.1)
[2022-04-05] MEDS ORDERED: HOME MED LIST COMPLETE! XX SCH (15:30)
[2022-04-05] MEDS ORDERED: propofoL 200 MG/20 ML VIAL As Ordered ONE (21:31)
[2022-04-05] MEDS ORDERED: LIDOCAINE 2% 100MG/5ML SDV (FOR ANES.) As Ordered ONE (21:31)
[2022-04-05] MEDS ORDERED: PANTOPRAZOLE 40MG VIAL IV ONE (21:35)
[2022-04-05 22:15] VITALS: BP 165/80
== END 2022-04-05 22:26 | disposition home or self-care (01) ==
LOC: M ED 10:48 → M OROP 16:11
PROVIDERS: ATTEND Emergency Medicine
DX: T18.128A Food in esophagus causing other injury, initial encounter (principal); R13.10 Dysphagia, unspecified; K29.70 Gastritis, unspecified, without bleeding; E11.9 Type 2 diabetes mellitus without complications; I11.9 Hypertensive heart disease without heart failure; E78.5 Hyperlipidemia, unspecified; K74.60 Unspecified cirrhosis of liver; F10.10 Alcohol abuse, uncomplicated; M81.0 Age-related osteoporosis without current pathological fracture; Z86.711 Personal history of pulmonary embolism; Z86.718 Personal history of other venous thrombosis and embolism; D51.0 Vitamin B12 deficiency anemia due to intrinsic factor deficiency; D55.9 Anemia due to enzyme disorder, unspecified; D50.9 Iron deficiency anemia, unspecified; E03.9 Hypothyroidism, unspecified; K57.90 Diverticulosis of intestine, part unspecified, without perforation or abscess without bleeding; I65.29 Occlusion and stenosis of unspecified carotid artery; Z79.82 Long term (current) use of aspirin; Z79.84 Long term (current) use of oral hypoglycemic drugs; Z79.899 Other long term (current) drug therapy
CPT/HCPCS: 36415; 43247; 71045; 80048; 85025; 87631; 93005; 99285; C9113

== ENCOUNTER 2022-07-25 06:36 | Emergency (ER) | payer MEDICARE, OTHER ==
[~2022-07-25] VITALS: Ht 160 cm; Wt 70.3 kg
[2022-07-25] MEDS ORDERED: NS 1,000 ML IV ONE ×2 (08:00→09:50)
[2022-07-25 08:50] LABS: BASO # 0.1 10^3/uL (0.0-0.2); BASO % 1.5 % (0.0-1.0); EOS # 0.2 10^3/uL (0.0-0.5); EOS % 4.7 % (0.0-3.0); HEMATOCRIT 40.6 % (36.0-47.0); HEMOGLOBIN 13.5 g/dl (12.0-15.5); LYMPH # 1.4 10^3/uL (1.5-5.0); LYMPH % 34.1 % (24.0-44.0); MEAN CORPUSCULAR HEMOGLOBIN 29.9 pg (27.0-33.0); MEAN CORPUSCULAR HGB CONC 33.3 g/dl (32.0-36.5); MEAN CORPUSCULAR VOLUME 89.8 fl (80.0-96.0); MONO # 0.4 10^3/uL (0.0-0.8); MONO % 10.4 % (2.0-8.0); NEUTROPHILS % 48.8 % (36.0-66.0); PLATELET COUNT, AUTOMATED 131 10^3/uL (150-450); RED BLOOD COUNT 4.52 10^6/uL (4.00-5.40)
[2022-07-25 09:26] LABS: CALCIUM LEVEL 9.2 MG/DL (8.8-10.2); CREATININE FOR GFR 1.07 MG/DL (0.55-1.30); GLOMERULAR FILTRATION RATE 54.3 (>45); POTASSIUM SERUM 4.4 MEQ/L (3.5-5.1); THYROID STIMULATING HORMONE 2.16 uIU/ML (0.358-3.740)
[2022-07-25 09:31] LABS: ALBUMIN 3.7 GM/DL (3.2-5.2); BILIRUBIN,TOTAL 0.4 MG/DL (0.2-1.0); CALCIUM LEVEL 9.4 MG/DL (8.8-10.2); CREATININE FOR GFR 1.07 MG/DL (0.55-1.30); ETHYL ALCOHOL (ETHANOL) 0.244 % (0.000-0.010); GLOMERULAR FILTRATION RATE 54.3 (>45); POTASSIUM SERUM 4.8 MEQ/L (3.5-5.1); TOTAL PROTEIN 8.1 GM/DL (6.4-8.2)
[2022-07-25 09:34] LABS: RSV AMPLIFICATION NEGATIVE (NEGATIVE)
[2022-07-25 12:02] VITALS: BP 137/66
== END 2022-07-25 12:18 | disposition home or self-care (01) ==
LOC: M ED 06:36 → EDBD 06:36 → M ED 12:18
DX: F10.129 Alcohol abuse with intoxication, unspecified (principal); E11.65 Type 2 diabetes mellitus with hyperglycemia; I10 Essential (primary) hypertension; E78.5 Hyperlipidemia, unspecified; Z96.643 Presence of artificial hip joint, bilateral; Z96.653 Presence of artificial knee joint, bilateral; Z79.4 Long term (current) use of insulin; Z88.4 Allergy status to anesthetic agent; Z79.82 Long term (current) use of aspirin; Z79.811 Long term (current) use of aromatase inhibitors; Z79.899 Other long term (current) drug therapy

== ENCOUNTER 2022-09-21 01:38 | Emergency (ER) | payer MEDICARE, OTHER ==
[~2022-09-21] VITALS: Ht 160 cm; Wt 70.9 kg
[2022-09-21] MEDS ORDERED: hydrALAZINE 20MG/ML 1ML VIAL As Ordered ONE (02:22)
[2022-09-21] MEDS ORDERED: hydrALAZINE 20MG/ML 1ML VIAL IV STA (02:24)
[2022-09-21 02:25] LABS: BASO % 0.5 % (0.0-1.0); EOS # 0.2 10^3/uL (0.0-0.5); EOS % 4.2 % (0.0-3.0); HEMATOCRIT 42.7 % (36.0-47.0); LYMPH # 1.4 10^3/uL (1.5-5.0); LYMPH % 26.4 % (24.0-44.0); MEAN CORPUSCULAR HEMOGLOBIN 28.8 pg (27.0-33.0); MEAN CORPUSCULAR HGB CONC 32.8 g/dl (32.0-36.5); MEAN CORPUSCULAR VOLUME 87.9 fl (80.0-96.0); MONO # 0.5 10^3/uL (0.0-0.8); MONO % 9.2 % (2.0-8.0); NEUTROPHILS # 3.3 10^3/uL (1.5-8.5); NEUTROPHILS % 59.5 % (36.0-66.0); PLATELET COUNT, AUTOMATED 123 10^3/uL (150-450); RED BLOOD COUNT 4.86 10^6/uL (4.00-5.40); WHITE BLOOD COUNT 5.5 10^3/uL (4.0-10.0)
[2022-09-21] MEDS ORDERED: hydrALAZINE 20MG/ML 1ML VIAL IV ONE (02:25)
[2022-09-21 02:40] LABS: INR 0.94; PROTHROMBIN TIME 12.8 SECONDS (12.5-14.5)
[2022-09-21 02:41] LABS: PARTIAL THROMBOPLASTIN TIME 28.9 SECONDS (24.8-34.2)
[2022-09-21 02:43] LABS: BLOOD UREA NITROGEN 13 MG/DL (9-23); CALCIUM LEVEL 9.7 MG/DL (8.3-10.6); CARBON DIOXIDE LEVEL 24 MMOL/L (20-31); CHLORIDE LEVEL 102 MMOL/L (98-107); CPK CREATINE PHOSPHOKINASE 78 U/L (34-145); CREATININE FOR GFR 0.81 MG/DL (0.55-1.30); GLOMERULAR FILTRATION RATE > 60.0 (>45); GLUCOSE, FASTING 186 MG/DL (74-106); POTASSIUM SERUM 3.5 MMOL/L (3.5-5.1); SODIUM LEVEL 137 MMOL/L (136-145)
[2022-09-21 02:45] LABS: CK-MB VALUE MASS < 1.0 NG/ML (<3.6); MB/CK RELATIVE INDEX 1.28 (< OR =4)
[2022-09-21 02:59] LABS: RSV AMPLIFICATION NEGATIVE (NEGATIVE)
[2022-09-21] MEDS ORDERED: atenoloL 25 MG TAB PO ONE (04:10)
[2022-09-21 04:53] VITALS: BP 180/98
[2022-09-21 06:19] LABS: CK-MB VALUE MASS < 1.0 NG/ML (<3.6)
[2022-09-21 06:20] LABS: CPK CREATINE PHOSPHOKINASE 66 U/L (34-145); MB/CK RELATIVE INDEX 1.51 (< OR =4)
[2022-09-21 07:47] VITALS: BP 189/88
== END 2022-09-21 07:52 | disposition home or self-care (01) ==
LOC: M ED 01:38
DX: I16.0 Hypertensive urgency (principal); I67.4 Hypertensive encephalopathy; R94.31 Abnormal electrocardiogram [ECG] [EKG]; E11.9 Type 2 diabetes mellitus without complications; I10 Essential (primary) hypertension; E78.5 Hyperlipidemia, unspecified; Z79.84 Long term (current) use of oral hypoglycemic drugs; Z88.8 Allergy status to other drugs, medicaments and biological substances; Z79.811 Long term (current) use of aromatase inhibitors; Z79.4 Long term (current) use of insulin; Z79.899 Other long term (current) drug therapy
CPT/HCPCS: 70450; 71045; 73020; 73060; 80048; 82550; 82553; 84484; 85025; 85610; 85730; 87631; 93005; 96374; 99284; J0360

== ENCOUNTER → 2022-10-05 | Outpatient (CLI) | payer MEDICARE, OTHER | LOC: M WHC 09:46 | PROVIDERS: ATTEND Nurse Practitioner Adult Health | DX: Z12.31 Encounter for screening mammogram for malignant neoplasm of breast (principal) ==

== ENCOUNTER → 2022-11-05 | Outpatient (CLI) | payer MEDICARE, OTHER ==
[2022-11-05 14:08] LABS: BASO # 0.1 10^3/uL (0.0-0.2); BASO % 1.1 % (0.0-1.0); EOS # 0.2 10^3/uL (0.0-0.5); EOS % 4.6 % (0.0-3.0); HEMATOCRIT 39.5 % (36.0-47.0); HEMOGLOBIN 12.5 g/dl (12.0-15.5); LYMPH # 1.1 10^3/uL (1.5-5.0); LYMPH % 23.4 % (24.0-44.0); MEAN CORPUSCULAR HEMOGLOBIN 27.7 pg (27.0-33.0); MEAN CORPUSCULAR HGB CONC 31.6 g/dl (32.0-36.5); MEAN CORPUSCULAR VOLUME 87.4 fl (80.0-96.0); MONO # 0.5 10^3/uL (0.0-0.8); MONO % 11.1 % (2.0-8.0); NEUTROPHILS # 2.7 10^3/uL (1.5-8.5); NEUTROPHILS % 59.6 % (36.0-66.0); PLATELET COUNT, AUTOMATED 110 10^3/uL (150-450); RED BLOOD COUNT 4.52 10^6/uL (4.00-5.40); WHITE BLOOD COUNT 4.6 10^3/uL (4.0-10.0)
[2022-11-05 14:18] LABS: INR 0.91; PROTHROMBIN TIME 12.4 SECONDS (12.5-14.5)
[2022-11-05 14:44] LABS: ALBUMIN 3.6 G/DL (3.2-5.2); ALKALINE PHOSPHATASE 149 U/L (46-116); ALT/SGPT 34 U/L (7.0-40); AST/SGOT 44 U/L (<34); BILIRUBIN,TOTAL 0.7 MG/DL (0.3-1.2); BLOOD UREA NITROGEN 14 MG/DL (9-23); CALCIUM LEVEL 9.4 MG/DL (8.3-10.6); CARBON DIOXIDE LEVEL 21 MMOL/L (20-31); CHLORIDE LEVEL 106 MMOL/L (98-107); CREATININE FOR GFR 0.75 MG/DL (0.55-1.30); GLOMERULAR FILTRATION RATE > 60.0 (>45); GLUCOSE, FASTING 312 MG/DL (74-106); POTASSIUM SERUM 4.1 MMOL/L (3.5-5.1); SODIUM LEVEL 138 MMOL/L (136-145); TOTAL PROTEIN 7.8 G/DL (5.7-8.2)
== END ==
LOC: M LAB 12:57
PROVIDERS: ATTEND Internal Medicine Gastroenterology
DX: K70.30 Alcoholic cirrhosis of liver without ascites (principal)

== ENCOUNTER → 2022-11-08 | Outpatient (CLI) | payer MEDICARE, MEDICAID ==
[~2022-11-08] MED LIST changes: +ISOVUE-370 76% 100ML VIAL As Ordered ONE
== END ==
LOC: M RAD 07:48
PROVIDERS: ATTEND Internal Medicine Gastroenterology
DX: D37.6 Neoplasm of uncertain behavior of liver, gallbladder and bile ducts (principal); R93.3 Abnormal findings on diagnostic imaging of other parts of digestive tract; K74.69 Other cirrhosis of liver
CPT/HCPCS: 74170; Q9967

== ENCOUNTER → 2022-11-16 | Outpatient (CLI) | payer MEDICARE, MEDICAID ==
[~2022-11-16] MED LIST changes: -ISOVUE-370 76% 100ML VIAL As Ordered ONE
== END ==
LOC: M LABSMTC 10:49
PROVIDERS: ATTEND Anesthesiology
DX: Z01.812 Encounter for preprocedural laboratory examination (principal); Z20.822 Contact with and (suspected) exposure to COVID-19

== ENCOUNTER 2022-11-23 01:03 | Emergency (ER) | payer MEDICARE, OTHER ==
[~2022-11-23] VITALS: Ht 160 cm; Wt 76.2 kg
[2022-11-23 01:37] VITALS: BP 146/39
== END 2022-11-23 02:56 | disposition left against medical advice (07) ==
LOC: M ED 01:03 → EDBD 01:03 → M ED 02:56
DX: Z53.21 Procedure and treatment not carried out due to patient leaving prior to being seen by health care provider (principal)

== ENCOUNTER → 2023-01-03 | Outpatient (CLI) | payer MEDICARE, MEDICAID | LOC: M LABSMTC 10:57 | PROVIDERS: ATTEND Anesthesiology | DX: Z20.822 Contact with and (suspected) exposure to COVID-19 (principal) ==

== ENCOUNTER 2023-01-08 09:45 | Day surgery (SDC) | payer MEDICARE, MEDICAID ==
[~2023-01-08] VITALS: Ht 160 cm; Wt 70.7 kg
[~2023-01-08 09:45] MED LIST changes: +LIDOCAINE 2% 100MG/5ML SDV (FOR ANES.) As Ordered ONE; +NS 1,000 ML IV ONE; +propofoL 200 MG/20 ML VIAL As Ordered ONE
[2023-01-08] MEDS ORDERED: fentaNYL 100 MCG/2 ML INJECTION As Ordered ONE (11:12)
[2023-01-08 11:21] LABS: HEMOGLOBIN 11.5 g/dl (12.0-15.5); MEAN CORPUSCULAR HEMOGLOBIN 26.6 pg (27.0-33.0); MEAN CORPUSCULAR HGB CONC 31.1 g/dl (32.0-36.5); MEAN CORPUSCULAR VOLUME 85.6 fl (80.0-96.0); PLATELET COUNT, AUTOMATED 100 10^3/uL (150-450); RED BLOOD COUNT 4.32 10^6/uL (4.00-5.40); WHITE BLOOD COUNT 3.4 10^3/uL (4.0-10.0)
[2023-01-08 11:40] LABS: INR 0.94; PROTHROMBIN TIME 12.8 SECONDS (12.5-14.5)
[2023-01-08 13:30] VITALS: BP 146/68
== END 2023-01-08 13:49 | disposition home or self-care (01) ==
LOC: M OPP 09:45
PROVIDERS: ATTEND Internal Medicine Gastroenterology
DX: K22.2 Esophageal obstruction (principal); K22.89 Other specified disease of esophagus; K31.89 Other diseases of stomach and duodenum; K29.70 Gastritis, unspecified, without bleeding; K74.60 Unspecified cirrhosis of liver; E11.9 Type 2 diabetes mellitus without complications
CPT/HCPCS: 36415; 43239; 43249; 85027; 85610; 88305; J3010

== ENCOUNTER 2023-01-23 00:22 | Emergency (ER) | payer MEDICARE, OTHER ==
[~2023-01-23] VITALS: Ht 160 cm; Wt 73.2 kg
[~2023-01-23 00:22] MED LIST changes: -LIDOCAINE 2% 100MG/5ML SDV (FOR ANES.) As Ordered ONE; -NS 1,000 ML IV ONE; -propofoL 200 MG/20 ML VIAL As Ordered ONE
[2023-01-23 09:36] VITALS: BP 197/86
== END 2023-01-23 09:48 | disposition home or self-care (01) ==
LOC: M ED 00:22
DX: R22.31 Localized swelling, mass and lump, right upper limb (principal); I10 Essential (primary) hypertension; E11.9 Type 2 diabetes mellitus without complications; K74.60 Unspecified cirrhosis of liver; Z88.4 Allergy status to anesthetic agent

== ENCOUNTER → 2023-01-29 | Outpatient (CLI) | payer MEDICARE, OTHER ==
[2023-01-29 09:45] LABS: BLOOD UREA NITROGEN 13 MG/DL (9-23); CREATININE FOR GFR 0.74 MG/DL (0.55-1.30); GLOMERULAR FILTRATION RATE > 60.0 (>45)
== END ==
LOC: M LAB 08:49
PROVIDERS: ATTEND Surgery
DX: Z01.818 Encounter for other preprocedural examination (principal)

== ENCOUNTER 2023-02-18 00:58 | Emergency (ER) | payer MEDICARE, OTHER ==
[2023-02-18 01:08] VITALS: BP 149/63
== END 2023-02-18 03:52 | disposition left against medical advice (07) ==
LOC: EDBD 00:58 → M ED 00:58
DX: Z53.21 Procedure and treatment not carried out due to patient leaving prior to being seen by health care provider (principal)

== ENCOUNTER 2023-03-11 04:37 | Emergency (ER) | payer MEDICARE ==
[~2023-03-11] VITALS: Ht 160 cm; Wt 69.5 kg
[2023-03-11 06:37] LABS: EOS # 0.2 10^3/uL (0.0-0.5); EOS % 5.7 % (0.0-3.0); HEMATOCRIT 41.1 % (36.0-47.0); HEMOGLOBIN 13.2 g/dl (12.0-15.5); LYMPH # 0.8 10^3/uL (1.5-5.0); LYMPH % 19.6 % (24.0-44.0); MEAN CORPUSCULAR HGB CONC 32.1 g/dl (32.0-36.5); MONO # 0.6 10^3/uL (0.0-0.8); MONO % 14.4 % (2.0-8.0); NEUTROPHILS # 2.3 10^3/uL (1.5-8.5); NEUTROPHILS % 58.8 % (36.0-66.0); PLATELET COUNT, AUTOMATED 116 10^3/uL (150-450); RED BLOOD COUNT 4.89 10^6/uL (4.00-5.40); WHITE BLOOD COUNT 3.8 10^3/uL (4.0-10.0)
[2023-03-11 06:47] LABS: INR 0.99; PROTHROMBIN TIME 13.3 SECONDS (12.5-14.5)
[2023-03-11] MEDS ORDERED: PANTOPRAZOLE 40MG VIAL IV ONE (06:55)
[2023-03-11] MEDS ORDERED: SUCRALFATE 1 GM TAB PO ONE (06:55)
[2023-03-11] MEDS ORDERED: GI COCKTAIL 50ML BTL(HYOSCYAMINE/MAALOX/LIDOCAINE VISCOUS)(1:3:1) PO ONE (06:55)
[2023-03-11 06:58] LABS: CK-MB VALUE MASS < 1.0 NG/ML (<3.6)
[2023-03-11 06:59] LABS: ETHYL ALCOHOL (ETHANOL) 0.005 % (0.000-0.010)
[2023-03-11 07:00] LABS: BLOOD UREA NITROGEN 9 MG/DL (9-23); CALCIUM LEVEL 9.6 MG/DL (8.3-10.6); CARBON DIOXIDE LEVEL 23 MMOL/L (20-31); CHLORIDE LEVEL 105 MMOL/L (98-107); CREATININE FOR GFR 0.71 MG/DL (0.55-1.30); GLOMERULAR FILTRATION RATE > 60.0 (>45); GLUCOSE, FASTING 119 MG/DL (74-106); POTASSIUM SERUM 4.4 MMOL/L (3.5-5.1); SODIUM LEVEL 138 MMOL/L (136-145)
[2023-03-11 07:14] LABS: CPK CREATINE PHOSPHOKINASE 80 U/L (34-145); MB/CK RELATIVE INDEX 1.25 (< OR =4)
[2023-03-11] MEDS ORDERED: hydrALAZINE 20MG/ML 1ML VIAL IV ONE (07:35)
[2023-03-11 08:15] VITALS: BP 180/81
[2023-03-11 09:14] LABS: CK-MB VALUE MASS < 1.0 NG/ML (<3.6); CPK CREATINE PHOSPHOKINASE 83 U/L (34-145)
[2023-03-11] MEDS ORDERED: CARA1TAB6 PO (09:41)
[2023-03-11] MEDS ORDERED: OMEP-173 PO (09:41)
[2023-03-11 10:35] VITALS: BP 143/65
== END 2023-03-11 10:37 | disposition home or self-care (01) ==
LOC: EDBD 04:37 → M ED 04:37
DX: R07.9 Chest pain, unspecified (principal); I10 Essential (primary) hypertension; R42 Dizziness and giddiness; E11.9 Type 2 diabetes mellitus without complications; E78.5 Hyperlipidemia, unspecified; K21.9 Gastro-esophageal reflux disease without esophagitis; Z79.899 Other long term (current) drug therapy; Z79.82 Long term (current) use of aspirin; Z79.811 Long term (current) use of aromatase inhibitors
CPT/HCPCS: 71045; 80048; 82077; 82550; 82553; 83880; 84484; 85025; 85610; 85730; 93005; 93041; 94760; 96374; 96375; 99285; C9113; J0360

== ENCOUNTER → 2023-03-23 | Outpatient (CLI) | payer MEDICARE ==
[~2023-03-23] MED LIST changes: +CARA1TAB6 PO; +OMEP-173 PO; -ROSU20TA5 PO; +ROSU20TA61 PO
[2023-03-23 14:57] LABS: BASO # 0.1 10^3/uL (0.0-0.2); BASO % 1.2 % (0.0-1.0); EOS # 0.3 10^3/uL (0.0-0.5); EOS % 5.5 % (0.0-3.0); HEMATOCRIT 42.2 % (36.0-47.0); HEMOGLOBIN 13.4 g/dl (12.0-15.5); LYMPH # 1.1 10^3/uL (1.5-5.0); LYMPH % 21.7 % (24.0-44.0); MEAN CORPUSCULAR HEMOGLOBIN 27.1 pg (27.0-33.0); MEAN CORPUSCULAR HGB CONC 31.8 g/dl (32.0-36.5); MEAN CORPUSCULAR VOLUME 85.4 fl (80.0-96.0); MONO # 0.4 10^3/uL (0.0-0.8); NEUTROPHILS # 3.1 10^3/uL (1.5-8.5); NEUTROPHILS % 63.4 % (36.0-66.0); PLATELET COUNT, AUTOMATED 141 10^3/uL (150-450); RED BLOOD COUNT 4.94 10^6/uL (4.00-5.40); WHITE BLOOD COUNT 4.9 10^3/uL (4.0-10.0)
[2023-03-23 15:00] LABS: TOTAL 25(OH) VITAMIN D 26.2 NG/ML (20.0-100.0)
[2023-03-23 15:04] LABS: HEMATOCRIT 43.4 % (36.0-47.0)
[2023-03-23 15:06] LABS: ALBUMIN 4.1 G/DL (3.2-5.2); ALKALINE PHOSPHATASE 168 U/L (46-116); ALT/SGPT 40 U/L (7.0-40); AST/SGOT 66 U/L (<34); BILIRUBIN,TOTAL 0.8 MG/DL (0.3-1.2); BLOOD UREA NITROGEN 11 MG/DL (9-23); CALCIUM LEVEL 9.8 MG/DL (8.3-10.6); CARBON DIOXIDE LEVEL 26 MMOL/L (20-31); CHLORIDE LEVEL 104 MMOL/L (98-107); CREATININE FOR GFR 0.83 MG/DL (0.55-1.30); GLOMERULAR FILTRATION RATE > 60.0 (>45); GLUCOSE, FASTING 171 MG/DL (74-106); POTASSIUM SERUM 4.9 MMOL/L (3.5-5.1); SODIUM LEVEL 138 MMOL/L (136-145); TOTAL PROTEIN 8.2 G/DL (5.7-8.2); VITAMIN B12 LEVEL 312 PG/ML (211-911)
[2023-03-23 15:24] LABS: CREATININE, URINE 27.3 MG/DL; MAU/CREAT RATIO 366.3 MCG/MG (0.0-30.0)
[2023-03-23 15:51] LABS: HEMOGLOBIN A1c 7.9 % (4.0-6.0)
== END ==
LOC: M PLALAB 10:33
PROVIDERS: ATTEND Physician Assistant Medical
DX: E11.65 Type 2 diabetes mellitus with hyperglycemia (principal); I11.9 Hypertensive heart disease without heart failure; D51.8 Other vitamin B12 deficiency anemias; E55.9 Vitamin D deficiency, unspecified; E78.5 Hyperlipidemia, unspecified

== ENCOUNTER → 2023-04-10 | Outpatient (CLI) | payer MEDICARE ==
[2023-04-10 12:10] LABS: BASO % 1.1 % (0.0-1.0); EOS # 0.2 10^3/uL (0.0-0.5); EOS % 5.2 % (0.0-3.0); HEMOGLOBIN 12.3 g/dl (12.0-15.5); LYMPH # 0.7 10^3/uL (1.5-5.0); LYMPH % 19.6 % (24.0-44.0); MEAN CORPUSCULAR HEMOGLOBIN 26.6 pg (27.0-33.0); MEAN CORPUSCULAR HGB CONC 31.5 g/dl (32.0-36.5); MEAN CORPUSCULAR VOLUME 84.2 fl (80.0-96.0); MONO # 0.4 10^3/uL (0.0-0.8); MONO % 11.8 % (2.0-8.0); NEUTROPHILS # 2.3 10^3/uL (1.5-8.5); PLATELET COUNT, AUTOMATED 103 10^3/uL (150-450); RED BLOOD COUNT 4.63 10^6/uL (4.00-5.40); WHITE BLOOD COUNT 3.6 10^3/uL (4.0-10.0)
[2023-04-10 12:48] LABS: ALBUMIN 3.6 G/DL (3.2-5.2); BILIRUBIN,DIRECT 0.2 MG/DL (<0.4); BILIRUBIN,TOTAL 0.8 MG/DL (0.3-1.2); TOTAL PROTEIN 7.3 G/DL (5.7-8.2)
== END ==
LOC: M RAD 08:34
PROVIDERS: ATTEND Internal Medicine Gastroenterology
DX: K76.89 Other specified diseases of liver (principal)

== ENCOUNTER → 2023-05-22 | Outpatient (CLI) | payer MEDICARE, MEDICAID ==
[~2023-05-22] MED LIST changes: +ISOVUE-370 76% 100ML VIAL As Ordered ONE
== END ==
LOC: M RAD 13:00
PROVIDERS: ATTEND Surgery
DX: I77.1 Stricture of artery (principal); R93.5 Abnormal findings on diagnostic imaging of other abdominal regions, including retroperitoneum
CPT/HCPCS: 74174; Q9967

== ENCOUNTER → 2023-08-14 | Outpatient (CLI) | payer MEDICARE, MEDICAID ==
[~2023-08-14] MED LIST changes: -ISOVUE-370 76% 100ML VIAL As Ordered ONE
== END ==
LOC: M PLAIMG 15:07
PROVIDERS: ATTEND Nurse Practitioner Adult Health
DX: M25.552 Pain in left hip (principal); Z96.642 Presence of left artificial hip joint

== ENCOUNTER 2023-09-08 01:45 | Emergency (ER) | payer MEDICARE, MEDICAID ==
[2023-09-08 02:03] VITALS: BP 152/53; TEMP 98.1; O2SAT 97
== END 2023-09-08 06:16 | disposition left against medical advice (07) ==
LOC: EDBD 01:45 → M ED 01:45
DX: Z53.21 Procedure and treatment not carried out due to patient leaving prior to being seen by health care provider (principal)

== ENCOUNTER 2023-09-21 21:55 | Emergency (ER) | payer MEDICARE, MEDICAID ==
[~2023-09-21] VITALS: Ht 160 cm; Wt 70.0 kg
[2023-09-21 22:15] VITALS: BP 118/67; TEMP 97.6; O2SAT 98
== END 2023-09-21 23:33 | disposition left against medical advice (07) ==
LOC: M ED 21:55
DX: Z53.21 Procedure and treatment not carried out due to patient leaving prior to being seen by health care provider (principal)

== ENCOUNTER 2023-09-25 15:27 | Emergency (ER) | payer MEDICARE, MEDICAID ==
[~2023-09-25] VITALS: Ht 160 cm; Wt 69.0 kg
[2023-09-25 15:40] VITALS: TEMP 99
[2023-09-25] MEDS ORDERED: hydrALAZINE 20MG/ML 1ML VIAL IV STA (20:28)
[2023-09-25 20:43] VITALS: BP 214/90
[2023-09-25 21:10] LABS: RSV AMPLIFICATION NEGATIVE (NEGATIVE)
[2023-09-25 21:45] VITALS: BP 112/57; O2SAT 96
== END 2023-09-25 21:57 | disposition short-term general hospital (02) ==
LOC: EDBD 15:27 → M ED 15:27
DX: S32.402A Unspecified fracture of left acetabulum, initial encounter for closed fracture (principal); E11.9 Type 2 diabetes mellitus without complications; E78.5 Hyperlipidemia, unspecified; I10 Essential (primary) hypertension; K21.9 Gastro-esophageal reflux disease without esophagitis; F10.10 Alcohol abuse, uncomplicated; Z96.642 Presence of left artificial hip joint; Z88.4 Allergy status to anesthetic agent; Z79.82 Long term (current) use of aspirin; Z79.811 Long term (current) use of aromatase inhibitors; Z79.4 Long term (current) use of insulin; Z79.899 Other long term (current) drug therapy
CPT/HCPCS: 73502; 73700; 87631; 87635; 96374; 99285; J0360

== ENCOUNTER 2023-11-20 00:53 | Emergency (ER) | payer MEDICARE, MEDICAID ==
[~2023-11-20] VITALS: Ht 160 cm; Wt 70.0 kg
[2023-11-20 09:05] VITALS: BP 180/80; TEMP 98.3; O2SAT 98
== END 2023-11-20 09:15 | disposition home or self-care (01) ==
LOC: M ED 00:53 → EDBD 00:53 → M ED 09:15
DX: S32.512A Fracture of superior rim of left pubis, initial encounter for closed fracture (principal); M16.12 Unilateral primary osteoarthritis, left hip; M25.552 Pain in left hip; I10 Essential (primary) hypertension; E11.9 Type 2 diabetes mellitus without complications; Z88.4 Allergy status to anesthetic agent; Z88.8 Allergy status to other drugs, medicaments and biological substances; Z96.643 Presence of artificial hip joint, bilateral; Z79.82 Long term (current) use of aspirin; Z79.811 Long term (current) use of aromatase inhibitors; Z79.4 Long term (current) use of insulin; Z79.899 Other long term (current) drug therapy

== ENCOUNTER → 2023-11-22 | Outpatient (CLI) | payer MEDICARE, MEDICAID | LOC: M RAD 07:16 | PROVIDERS: ATTEND Internal Medicine Gastroenterology | DX: K70.30 Alcoholic cirrhosis of liver without ascites (principal); D37.6 Neoplasm of uncertain behavior of liver, gallbladder and bile ducts ==

== ENCOUNTER → 2023-12-21 | Outpatient (REF) | payer MEDICARE | LOC: M SFHCPLAZ 18:35 | PROVIDERS: ATTEND Nurse Practitioner Family | DX: Z20.822 Contact with and (suspected) exposure to COVID-19 (principal) ==

== ENCOUNTER → 2023-12-21 | Outpatient (CLI) | payer MEDICARE, MEDICAID | LOC: M PLALAB 14:52 | PROVIDERS: ATTEND Nurse Practitioner Family | DX: R09.89 Other specified symptoms and signs involving the circulatory and respiratory systems (principal) ==

== ENCOUNTER 2024-01-18 23:12 | Emergency (ER) | payer MEDICARE ==
[~2024-01-18] VITALS: Ht 157.5 cm; Wt 63.6 kg
[2024-01-18 23:29] VITALS: BP 138/61; TEMP 97.6; O2SAT 94
[2024-01-18 23:50] LABS: BASO % 0.5 % (0.0-1.0); EOS # 0.3 10^3/uL (0.0-0.5); EOS % 3.8 % (0.0-3.0); HEMATOCRIT 29.8 % (36.0-47.0); HEMOGLOBIN 8.9 g/dl (12.0-15.5); LYMPH # 2.2 10^3/uL (1.5-5.0); LYMPH % 30.1 % (24.0-44.0); MEAN CORPUSCULAR HEMOGLOBIN 21.9 pg (27.0-33.0); MEAN CORPUSCULAR HGB CONC 29.9 g/dl (32.0-36.5); MEAN CORPUSCULAR VOLUME 73.4 fl (80.0-96.0); MONO # 0.7 10^3/uL (0.0-0.8); MONO % 9.8 % (2.0-8.0); NEUTROPHILS # 4.1 10^3/uL (1.5-8.5); NEUTROPHILS % 55.4 % (36.0-66.0); PLATELET COUNT, AUTOMATED 162 10^3/uL (150-450); RED BLOOD COUNT 4.06 10^6/uL (4.00-5.40); WHITE BLOOD COUNT 7.4 10^3/uL (4.0-10.0)
[2024-01-19 00:14] LABS: BLOOD UREA NITROGEN 9 MG/DL (9-23); CARBON DIOXIDE LEVEL 16 MMOL/L (20-31); CHLORIDE LEVEL 106 MMOL/L (98-107); GLOMERULAR FILTRATION RATE > 60.0 (>39); GLUCOSE, FASTING 144 MG/DL (74-106); POTASSIUM SERUM 3.9 MMOL/L (3.5-5.1); SODIUM LEVEL 137 MMOL/L (136-145)
[2024-01-19] MEDS ORDERED: PRED20TA PO (01:16)
== END 2024-01-19 01:26 | disposition home or self-care (01) ==
LOC: M ED 23:12 → EDBD 23:12 → M ED 01-19 01:26
DX: U07.1 COVID-19 (principal); E11.9 Type 2 diabetes mellitus without complications; I10 Essential (primary) hypertension; F10.10 Alcohol abuse, uncomplicated; Z79.84 Long term (current) use of oral hypoglycemic drugs; Z86.711 Personal history of pulmonary embolism; Z88.4 Allergy status to anesthetic agent; Z79.82 Long term (current) use of aspirin; Z79.811 Long term (current) use of aromatase inhibitors; Z79.52 Long term (current) use of systemic steroids; Z79.899 Other long term (current) drug therapy

== ENCOUNTER → 2024-02-08 | Outpatient (CLI) | payer MEDICARE ==
[~2024-02-08] MED LIST changes: +PRED20TA PO
== END ==
LOC: M PLAIMG 09:01
PROVIDERS: ATTEND Physician Assistant
DX: I35.1 Nonrheumatic aortic (valve) insufficiency (principal); I34.0 Nonrheumatic mitral (valve) insufficiency; I36.1 Nonrheumatic tricuspid (valve) insufficiency

== ENCOUNTER 2024-02-25 08:28 | Day surgery (SDC) | payer MEDICARE, MEDICAID ==
[~2024-02-25] VITALS: Ht 160 cm; Wt 67.8 kg
[2024-02-25] MEDS: NS 1,000 ML IV ONE (08:00)
[~2024-02-25 08:28] MED LIST changes: +LIDOCAINE 2% 100MG/5ML SDV (FOR ANES.) As Ordered ONE; +propofoL 500 MG/50 ML VIAL As Ordered ONE
[2024-02-25] MEDS ORDERED: fentaNYL 100 MCG/2 ML INJECTION As Ordered ONE (08:56)
[2024-02-25 10:05] VITALS: TEMP 96.5
[2024-02-25 10:32] VITALS: BP 108/54; O2SAT 95
== END 2024-02-25 10:33 | disposition home or self-care (01) ==
LOC: M OPP 08:28
PROVIDERS: ATTEND Internal Medicine Gastroenterology
DX: K74.60 Unspecified cirrhosis of liver (principal); K31.89 Other diseases of stomach and duodenum; Z76.0 Encounter for issue of repeat prescription; E11.9 Type 2 diabetes mellitus without complications; I10 Essential (primary) hypertension; E78.00 Pure hypercholesterolemia, unspecified; Z86.711 Personal history of pulmonary embolism; Z79.899 Other long term (current) drug therapy; Z79.84 Long term (current) use of oral hypoglycemic drugs; Z79.82 Long term (current) use of aspirin; Z88.4 Allergy status to anesthetic agent; Z87.19 Personal history of other diseases of the digestive system
CPT/HCPCS: 43235; J3010

== ENCOUNTER 2024-04-26 18:32 | Inpatient (IN) | payer MEDICARE, MEDICAID ==
[~2024-04-26] VITALS: Ht 160 cm; Wt 69.5 kg
[~2024-04-26 18:32] MED LIST changes: -LIDOCAINE 2% 100MG/5ML SDV (FOR ANES.) As Ordered ONE; -propofoL 500 MG/50 ML VIAL As Ordered ONE
[2024-04-26] MEDS ORDERED: ROSU40TA63 PO (18:59)
[2024-04-26 20:55] LABS: BLOOD UREA NITROGEN 14 MG/DL (9-23); CALCIUM LEVEL 9.6 MG/DL (8.3-10.6); CARBON DIOXIDE LEVEL 16 MMOL/L (20-31); CHLORIDE LEVEL 108 MMOL/L (98-107); CREATININE FOR GFR 0.76 MG/DL (0.55-1.30); GLOMERULAR FILTRATION RATE > 60.0 (>39); GLUCOSE, FASTING 84 MG/DL (74-106); SODIUM LEVEL 138 MMOL/L (136-145)
[2024-04-26 21:15] LABS: BASO % 0.6 % (0.0-1.0); EOS # 0.1 10^3/uL (0.0-0.5); EOS % 1.5 % (0.0-3.0); HEMATOCRIT 27.2 % (36.0-47.0); HEMOGLOBIN 7.8 g/dl (12.0-15.5); LYMPH # 1.1 10^3/uL (1.5-5.0); LYMPH % 17.3 % (24.0-44.0); MEAN CORPUSCULAR HGB CONC 28.7 g/dl (32.0-36.5); MEAN CORPUSCULAR VOLUME 66.2 fl (80.0-96.0); MONO # 0.7 10^3/uL (0.0-0.8); MONO % 9.9 % (2.0-8.0); NEUTROPHILS # 4.7 10^3/uL (1.5-8.5); NEUTROPHILS % 70.5 % (36.0-66.0); PLATELET COUNT, AUTOMATED 152 10^3/uL (150-450); RED BLOOD COUNT 4.11 10^6/uL (4.00-5.40); WHITE BLOOD COUNT 6.6 10^3/uL (4.0-10.0)
[2024-04-26] MEDS: MORPHINE 4 MG/ML 1ML VIAL IV ONE (21:28)
[2024-04-26 22:15] LABS: INR 1.13; PARTIAL THROMBOPLASTIN TIME 30.5 SECONDS (24.8-34.2); PROTHROMBIN TIME 14.2 SECONDS (12.5-14.5)
[2024-04-26 22:19] LABS: BASO % 0.6 % (0.0-1.0); EOS # 0.1 10^3/uL (0.0-0.5); EOS % 1.4 % (0.0-3.0); HEMATOCRIT 27.3 % (36.0-47.0); HEMOGLOBIN 7.7 g/dl (12.0-15.5); LYMPH # 1.1 10^3/uL (1.5-5.0); LYMPH % 17.2 % (24.0-44.0); MEAN CORPUSCULAR HEMOGLOBIN 18.7 pg (27.0-33.0); MEAN CORPUSCULAR HGB CONC 28.2 g/dl (32.0-36.5); MEAN CORPUSCULAR VOLUME 66.3 fl (80.0-96.0); MONO # 0.7 10^3/uL (0.0-0.8); MONO % 10.2 % (2.0-8.0); NEUTROPHILS # 4.5 10^3/uL (1.5-8.5); NEUTROPHILS % 70.4 % (36.0-66.0); PLATELET COUNT, AUTOMATED 143 10^3/uL (150-450); RED BLOOD COUNT 4.12 10^6/uL (4.00-5.40); WHITE BLOOD COUNT 6.4 10^3/uL (4.0-10.0)
[2024-04-26] MEDS: PANTOPRAZOLE 40MG VIAL IV ONE (22:45)
[2024-04-27] VITALS (16 sets, daily range): BP systolic 110–196; BP diastolic 49–88; TEMP 97.8–99.4; O2SAT 94–98
[2024-04-27] MEDS ORDERED: GLIM4TAB5 PO (01:16)
[2024-04-27] MEDS ORDERED: OMEP40CA5 PO (01:16)
[2024-04-27] MEDS ORDERED: HOME MED LIST COMPLETE! XX SCH (01:20)
[2024-04-27] MEDS ORDERED: ACETAMINOPHEN TAB 650MG DOSE (2X325MG) PO PRN (01:35)
[2024-04-27] MEDS ORDERED: NORCO, ANEXSIA 5/325MG TABLET (HYDROcodone/ACETAMINOPHEN) PO PRN (02:00)
[2024-04-27] MEDS ORDERED: DEXTROSE 50% 50ML SYRINGE IV PRN (02:00)
[2024-04-27] MEDS ORDERED: HYDROMORPHONE HCL 0.5 MG/ 0.5 ML SYRINGE IV PRN (02:00)
[2024-04-27] MEDS ORDERED: GLUCAGON INJ 1MG VIAL SC PRN (02:00)
[2024-04-27] MEDS ORDERED: GLUCOSE 4 GM CHEW PO PRN (02:00)
[2024-04-27 02:40] LABS: ETHYL ALCOHOL (ETHANOL) 0.032 % (0.000-0.010)
[2024-04-27] MEDS: INSULIN LISPRO (NovoLOG) PER UNIT SC SCH ×2 (07:30→20:49)
[2024-04-27 08:31] LABS: VENOUS BASE EXCESS -7.1 (-2.0-2.0); VENOUS HCO3 17.6 MMOL/L (23.0-27.0); VENOUS O2 SATURATION 93.2 % (60.0-80.0); VENOUS PARTIAL PRESSURE CO2 32.9 mmHg (38.0-50.0); VENOUS PARTIAL PRESSURE O2 69.8 mmHg (30.0-50.0); VENOUS PH 7.347 UNITS (7.330-7.430); VENOUS STANDARD HCO3 18.6 MMOL/L; VENOUS TOTAL CO2 18.6 MMOL/L (24.0-28.0)
[2024-04-27] MEDS ORDERED: PANTOPRAZOLE 40MG VIAL IV SCH (09:00)
[2024-04-27] MEDS: ENOXAPARIN 40MG/0.4ML SYRINGE (J1650 PER 10MG) SC SCH (09:00)
[2024-04-27] MEDS: ACETAMINOPHEN 500 MG TAB PO SCH (09:00)
[2024-04-27] MEDS: ASPIRIN 81MG ENTERIC TABLET PO SCH (09:04)
[2024-04-27] MEDS: OMEPRAZOLE 20MG CAP PO SCH (09:04)
[2024-04-27] MEDS: bisoproloL fumarate 5 MG TAB PO SCH (09:04)
[2024-04-27] MEDS: DOCUSATE SODIUM 100MG CAPSULE PO SCH (09:04)
[2024-04-27] MEDS ORDERED: KETOROLAC 30 MG/ML 1ML VIAL IV PRN (10:30)
[2024-04-27] MEDS ORDERED: oxyCODONE 5MG TAB PO PRN ×2 (10:30)
[2024-04-27 11:50] LABS: ALBUMIN 3.3 G/DL (3.2-5.2); BILIRUBIN,DIRECT 0.7 MG/DL (<0.4); BILIRUBIN,TOTAL 2.2 MG/DL (0.3-1.2); PERCENT SATURATION 42.9 % (13.2-45.0); PTH INTACT 34.1 PG/ML (18.5-88.0)
[2024-04-27 11:52] LABS: FERRITIN 36.6 NG/ML (7.3-270.7); FOLATE 16.03 NG/ML (>5.4); TOTAL 25(OH) VITAMIN D 31.1 NG/ML (20.0-100.0)
[2024-04-27] MEDS ORDERED: LORazepam 2 MG TAB PO PRN (13:25)
[2024-04-27] MEDS: MULTIVITAMINS/MINERALS THERAP 1 TAB PO SCH (14:08)
[2024-04-27] MEDS: THIAMINE 100 MG TAB PO SCH (14:09)
[2024-04-27] MEDS: FOLIC ACID 1MG TAB PO SCH (14:09)
[2024-04-27] MEDS: CYCLOBENZAPRINE 5MG TABLET PO SCH (14:09)
[2024-04-27] MEDS: GABAPENTIN 100 MG CAP PO SCH (14:09)
[2024-04-27] MEDS: LIDOCAINE 5% (LIDODERM) PATCH TD SCH (14:10)
[2024-04-27] MEDS: KETOROLAC 30 MG/ML 1ML VIAL IV SCH (14:10)
[2024-04-27 15:03] LABS: BLOOD UREA NITROGEN 14 MG/DL (9-23); CALCIUM LEVEL 9.4 MG/DL (8.3-10.6); CARBON DIOXIDE LEVEL 21 MMOL/L (20-31); CHLORIDE LEVEL 107 MMOL/L (98-107); CREATININE FOR GFR 0.72 MG/DL (0.55-1.30); GLOMERULAR FILTRATION RATE > 60.0 (>39); GLUCOSE, FASTING 130 MG/DL (74-106); POTASSIUM SERUM 4.1 MMOL/L (3.5-5.1); SODIUM LEVEL 137 MMOL/L (136-145)
[2024-04-27] MEDS: ROSUVASTATIN 10 MG TAB (CRESTOR) PO SCH (21:08)
[2024-04-28 04:13] VITALS: BP 129/66; TEMP 97.3; O2SAT 96
[2024-04-28 06:00] VITALS: BP 129/66
[2024-04-28 08:59] LABS: HEMATOCRIT 30.7 % (36.0-47.0); MEAN CORPUSCULAR HEMOGLOBIN 20.5 pg (27.0-33.0); MEAN CORPUSCULAR HGB CONC 29.3 g/dl (32.0-36.5); MEAN CORPUSCULAR VOLUME 69.9 fl (80.0-96.0); PLATELET COUNT, AUTOMATED 125 10^3/uL (150-450); RED BLOOD COUNT 4.39 10^6/uL (4.00-5.40); WHITE BLOOD COUNT 5.1 10^3/uL (4.0-10.0)
[2024-04-28 09:17] LABS: ALKALINE PHOSPHATASE 116 U/L (46-116); ALT/SGPT < 9 U/L (7.0-40); AST/SGOT 15 U/L (<34); BILIRUBIN,TOTAL 0.9 MG/DL (0.3-1.2); BLOOD UREA NITROGEN 22 MG/DL (9-23); CALCIUM LEVEL 8.8 MG/DL (8.3-10.6); CALCIUM LEVEL 8.9 MG/DL (8.3-10.6); CARBON DIOXIDE LEVEL 20 MMOL/L (20-31); CHLORIDE LEVEL 108 MMOL/L (98-107); CREATININE FOR GFR 1.07 MG/DL (0.55-1.30); CREATININE FOR GFR 1.08 MG/DL (0.55-1.30); GLOMERULAR FILTRATION RATE 53.4 (>39); GLUCOSE, FASTING 158 MG/DL (74-106); POTASSIUM SERUM 4.1 MMOL/L (3.5-5.1); SODIUM LEVEL 137 MMOL/L (136-145); TOTAL PROTEIN 6.4 G/DL (5.7-8.2)
[2024-04-28] MEDS ORDERED: LIDO5TD TD (11:47)
[2024-04-28 12:00] VITALS: BP 146/58; TEMP 97.5; O2SAT 98
[2024-04-28 15:12] LABS: PROTEIN, TOTAL SO 7.4 g/dL (6.1-8.1)
[2024-04-29 11:32] LABS: FREE KAPPA LIGHT CHAINS SERUM 71.6 mg/L (3.3-19.4); FREE LAMBDA LIGHT CHAINS SERUM 49.2 mg/L (5.7-26.3); KAPPA/LAMBDA RATIO SERUM 1.46 (0.26-1.65)
[2024-04-29 16:22] LABS: ALBUMIN SO 3.7 g/dL (3.8-4.8); ALPHA 1 GLOBULINS SO 0.3 g/dL (0.2-0.3); ALPHA 2 GLOBULINS SO 0.6 g/dL (0.5-0.9); BETA 2 GLOBULIN SO 0.7 g/dL (0.2-0.5); BETA GLOBULIN SO 0.6 g/dL (0.4-0.6); GAMMA GLOBULINS SO 1.5 g/dL (0.8-1.7)
== END 2024-04-28 14:30 | disposition home or self-care (01) | DRG 543 ==
LOC: M ED 18:32 → M ED INP 04-27 01:34 → M MS5PR 04-27 13:15
PROVIDERS: ADMIT Internal Medicine; ATTEND Student in an Organized Health Care Education/Training Program
DX: M84.454A Pathological fracture, pelvis, initial encounter for fracture (principal); I50.32 Chronic diastolic (congestive) heart failure; E87.20 Acidosis, unspecified; T84.031A Mechanical loosening of internal left hip prosthetic joint, initial encounter; T84.051A Periprosthetic osteolysis of internal prosthetic left hip joint, initial encounter; E11.9 Type 2 diabetes mellitus without complications; M06.9 Rheumatoid arthritis, unspecified; E78.5 Hyperlipidemia, unspecified; K74.60 Unspecified cirrhosis of liver; D50.9 Iron deficiency anemia, unspecified; I11.0 Hypertensive heart disease with heart failure; E03.9 Hypothyroidism, unspecified; Z96.643 Presence of artificial hip joint, bilateral; Z86.718 Personal history of other venous thrombosis and embolism; Z86.711 Personal history of pulmonary embolism; M19.90 Unspecified osteoarthritis, unspecified site; Z79.82 Long term (current) use of aspirin; Z79.899 Other long term (current) drug therapy; Z88.4 Allergy status to anesthetic agent; K57.90 Diverticulosis of intestine, part unspecified, without perforation or abscess without bleeding; E04.1 Nontoxic single thyroid nodule; Z96.653 Presence of artificial knee joint, bilateral; Y83.1 Surgical operation with implant of artificial internal device as the cause of abnormal reaction of the patient, or of later complication, without mention of misadventure at the time of the procedure

== ENCOUNTER → 2024-05-22 | Outpatient (CLI) | payer MEDICARE, MEDICAID ==
[~2024-05-22] MED LIST changes: +GLIM4TAB5 PO; +LIDO5TD TD; +OMEP40CA5 PO; +ROSU40TA63 PO
[2024-05-22 11:50] LABS: CHOLESTEROL RISK RATIO 4.21 (<5); HDL CHOLESTEROL 42.2 MG/DL (>40); LDL CHOLESTEROL 113.6 MG/DL (<100); NON-HDL-C 135.8 MG/DL
== END ==
LOC: M LAB 10:21
PROVIDERS: ATTEND Physician Assistant
DX: E78.2 Mixed hyperlipidemia (principal)

== ENCOUNTER 2025-04-22 09:59 | Emergency (ER) | payer MEDICARE, MEDICAID ==
[~2025-04-22] VITALS: Ht 160 cm; Wt 74.0 kg
[~2025-04-22 09:59] MED LIST changes: -ROSU20TA61 PO; +ROSU20TA86 PO; -ROSU40TA63 PO; +ROSU40TA81 PO
[2025-04-22 10:39] LABS: BASO # 0.0 10^3/uL (0.0-0.2); BASO % 1.2 % (0.0-1.0); EOS # 0.2 10^3/uL (0.0-0.5); EOS % 4.4 % (0.0-3.0); LYMPH # 0.9 10^3/uL (1.5-5.0); LYMPH % 25.7 % (24.0-44.0); MONO # 0.3 10^3/uL (0.0-0.8); MONO % 9.9 % (2.0-8.0); NEUTROPHILS # 2.0 10^3/uL (1.5-8.5); NEUTROPHILS % 58.5 % (36.0-66.0); PLATELET COUNT, AUTOMATED 102 10^3/uL (150-450)
[2025-04-22 11:04] LABS: CPK CREATINE PHOSPHOKINASE 53.0 U/L (34-145)
[2025-04-22 11:09] LABS: CALCIUM LEVEL 8.9 MG/DL (8.3-10.6); CARBON DIOXIDE LEVEL 25.0 MMOL/L (20-31); CHLORIDE LEVEL 102.0 MMOL/L (98-107); CK-MB VALUE MASS 2.0 NG/ML (<3.6); CREATININE FOR GFR 0.74 MG/DL (0.55-1.30); GLOMERULAR FILTRATION RATE 86.4 (>39); MB/CK RELATIVE INDEX 3.77 (< OR =4); POTASSIUM SERUM 4.0 MMOL/L (3.5-5.1); SODIUM LEVEL 138.0 MMOL/L (136-145)
[2025-04-22] MEDS ORDERED: METF500T13 PO (11:20)
[2025-04-22 11:25] LABS: MAGNESIUM LEVEL 1.8 MG/DL (1.8-2.4)
[2025-04-22 12:23] LABS: CK-MB VALUE MASS 1.6 NG/ML (<3.6)
[2025-04-22 12:24] LABS: CPK CREATINE PHOSPHOKINASE 49.0 U/L (34-145); MB/CK RELATIVE INDEX 3.26 (< OR =4)
[2025-04-22] MEDS ORDERED: HOME MED LIST COMPLETE! XX SCH (13:15)
[2025-04-22] MEDS: HumuLIN R (REGULAR) INSULIN (NovoLIN R) **100 U/ML** PER UNIT SC ONE (13:23)
[2025-04-22 13:46] VITALS: BP 198/79; O2SAT 98
[2025-04-22 14:05] VITALS: TEMP 98.1
== END 2025-04-22 14:22 | disposition home or self-care (01) ==
LOC: EDBD 09:59 → M ED 09:59
DX: I49.1 Atrial premature depolarization (principal); E11.65 Type 2 diabetes mellitus with hyperglycemia; I10 Essential (primary) hypertension; E78.5 Hyperlipidemia, unspecified; K70.30 Alcoholic cirrhosis of liver without ascites; D50.9 Iron deficiency anemia, unspecified; Z86.711 Personal history of pulmonary embolism; Z86.718 Personal history of other venous thrombosis and embolism; Z88.4 Allergy status to anesthetic agent; Z88.8 Allergy status to other drugs, medicaments and biological substances; Z79.1 Long term (current) use of non-steroidal anti-inflammatories (NSAID); Z79.4 Long term (current) use of insulin; Z79.899 Other long term (current) drug therapy
CPT/HCPCS: 36415; 71045; 80048; 82550; 82553; 83735; 84484; 85025; 93005; 93041; 94760; 99285; J1815

== ENCOUNTER 2025-07-29 02:41 | Emergency (ER) | payer MEDICARE, MEDICAID ==
[~2025-07-29] VITALS: Ht 160 cm; Wt 66.4 kg
[~2025-07-29 02:41] MED LIST changes: -IBUP-1022 PO; +IBUP600T42 PO; +METF500T13 PO
[2025-07-29 02:49] VITALS: TEMP 97.3; O2SAT 98
[2025-07-29 04:00] VITALS: BP 190/90
== END 2025-07-29 05:15 | disposition left against medical advice (07) ==
LOC: M ED 02:41
DX: Z53.21 Procedure and treatment not carried out due to patient leaving prior to being seen by health care provider (principal)

== ENCOUNTER 2025-07-31 16:57 | Emergency (ER) | payer MEDICARE, MEDICAID ==
[~2025-07-31] VITALS: Ht 160 cm; Wt 65.9 kg
[2025-07-31] MEDS ORDERED: ACETAMINOPHEN 160 MG/5 ML SUSP UDC DYE-FREE PO ONE (17:25)
[2025-07-31] MEDS: ACETAMINOPHEN 325 MG/10.15 ML UDC PO ONE (17:33)
[2025-07-31 18:25] LABS: BASO # 0.0 10^3/uL (0.0-0.2); BASO % 0.3 % (0.0-1.0); EOS # 0.0 10^3/uL (0.0-0.5); EOS % 0.0 % (0.0-3.0); LYMPH # 0.4 10^3/uL (1.5-5.0); LYMPH % 10.3 % (24.0-44.0); MONO # 0.3 10^3/uL (0.0-0.8); MONO % 6.8 % (2.0-8.0); NEUTROPHILS # 3.0 10^3/uL (1.5-8.5); NEUTROPHILS % 81.5 % (36.0-66.0)
[2025-07-31] MEDS: NS (Normal Saline) 0.9% 1,000 ML IV ONE (18:35)
[2025-07-31 18:49] LABS: PLATELET COUNT, AUTOMATED 91 10^3/uL (150-450)
[2025-07-31 18:53] LABS: C REACTIVE PROTEIN QUANTITATIV 4.18 MG/DL (<1.0)
[2025-07-31 18:54] LABS: ALT/SGPT 20.0 U/L (7.0-40); AST/SGOT 34.0 U/L (<34); CALCIUM LEVEL 8.4 MG/DL (8.3-10.6); CARBON DIOXIDE LEVEL 17.0 MMOL/L (20-31); CHLORIDE LEVEL 101.0 MMOL/L (98-107); CREATININE FOR GFR 0.89 MG/DL (0.55-1.30); GLOMERULAR FILTRATION RATE 69.3 (>39); POTASSIUM SERUM 3.9 MMOL/L (3.5-5.1); SODIUM LEVEL 132.0 MMOL/L (136-145)
[2025-07-31 20:17] LABS: ERYTHROCYTE SEDIMENTATION RATE 116 mm/hr (0-30)
[2025-07-31] MEDS ORDERED: DOXY-441 PO (21:12)
[2025-07-31] MEDS: DOXYCYCLINE HYCLATE 100 MG TABLET PO ONE (21:34)
[2025-07-31 21:35] VITALS: TEMP 98.3; O2SAT 100
[2025-07-31 21:39] VITALS: BP 188/70
[2025-08-04 19:48] LABS: LYME TOTAL ANTIBODY CIA <= 0.90 Index (<=0.90)
== END 2025-07-31 21:46 | disposition home or self-care (01) ==
LOC: M ED 16:57
DX: R50.9 Fever, unspecified (principal); S40.262A Insect bite (nonvenomous) of left shoulder, initial encounter; E11.9 Type 2 diabetes mellitus without complications; I10 Essential (primary) hypertension; Z88.4 Allergy status to anesthetic agent; Z88.8 Allergy status to other drugs, medicaments and biological substances; Z79.1 Long term (current) use of non-steroidal anti-inflammatories (NSAID); Z79.899 Other long term (current) drug therapy; Z79.4 Long term (current) use of insulin; Y92.9 Unspecified place or not applicable; Y93.9 Activity, unspecified; Y99.9 Unspecified external cause status